=== PATIENT | male | born 1955 | race Caucasian/White ===

== ENCOUNTER 2019-01-29 15:05 | Inpatient (IN) ==
[2019-01-29] MEDS ORDERED: NS 1,000 ML, NS 1,000 ML IV ONE ×2 (15:41)
--- NOTE | 2019-01-29 16:01 | Diag Imaging Result Doc PS360 ---
EXAM: CHEST-PORTABLE 01/29/2019 HISTORY: RUQ pain, SOB TECHNIQUE: AP portable upright at 1552 COMMENT: There is dense alveolar opacification in the right lower lobe. There are no previous studies. The heart size and primary vascularity are within normal limits. IMPRESSION: Right lower lobe pneumonia. Electronically signed by Perry Richey 01/29/2019 3:59 PM
[2019-01-29] MEDS ORDERED: ZITHROMAX PO ONE (16:11)
[2019-01-29] MEDS ORDERED: ROCEPHIN 1 GM in NS 50 ML IV ONE (16:11)
[2019-01-29] MEDS ORDERED: DUONEB (A & A) INH ONE (16:11)
--- NOTE | 2019-01-29 16:31 | EKG Report ---
Test Performed on : 01/29/2019 3:43:23 PM Test Reason : CP Blood Pressure : / mmHG Vent. Rate : 130 BPM Atrial Rate : 130 BPM P-R Int : 118 ms QRS Dur : 072 ms QT Int : 280 ms P-R-T Axes : 000 173 158 degrees QTc Int : 412 ms Suspect arm lead reversal, interpretation assumes no reversal Sinus tachycardia. Septal infarct , age undetermined Lateral infarct , age undetermined Inferior infarct , age undetermined Abnormal ECG No previous ECGs available Unconfirmed Result
[2019-01-29 16:47] LABS: BASO# 0.02 X1000 (0.0-0.2); BASO% 0.2 % (0.0-0.8); EOS# 0.03 X1000 (0.0-0.7); EOS% 0.4 % (0.0-10.0); HEMATOCRIT 43.3 % (42.0-52.0); HEMOGLOBIN 14.5 g/dL (14.0-18.0); IMM GRAN# 0.05 X1000 (0.0-0.04); IMM GRAN% 0.6 % (0.0-0.5); LYMPH# 0.77 X1000 (1.2-3.4); LYMPH% 9.4 % (20.5-51.1); MCH 30.8 PG (27-31); MCHC 33.5 g/dL (33-37); MCV 91.9 FL (81-99); MONO# 0.93 X1000 (0.11-0.59); MONO% 11.4 % (1.7-9.3); MPV 11.9 FL (7.4-10.4); NEUT# 6.38 X1000 (1.4-6.5); PLT 177 X1000 (130-400); RBC 4.71 XMIL (4.7-6.1); RDW 13.9 % (11.5-14.5); WBC 8.18 X1000 (4.8-10.8)
[2019-01-29 16:54] LABS: INR 1.23; PROTIME 15.7 Seconds (11.0-16.0)
[2019-01-29] MEDS ORDERED: VANCOMYCIN 1 GM/NS 1 GM/250 ML IVPB IV ONE (17:02)
[2019-01-29] MEDS ORDERED: MAXIPIME 2 GM in NS 100 ML IV ONE (17:02)
[2019-01-29 17:15] LABS: AGAP 19; CHLORIDE 96 mmol/L (98-107); SODIUM 134 mmol/L (136-145); TCO2 19 mmol/L (25-35)
[2019-01-29 17:16] LABS: ALB/GLOB RATIO 1.2; ALBUMIN 3.8 g/dL (3.5-5.0); ALKALINE PHOSPHATASE 50 U/L (32-122); AMYLASE 57 U/L (20-200); BUN 18 mg/dL (8-22); CALCIUM 8.2 mg/dL (8.8-10.2); COSMO 270; CREATININE 1.2 mg/dL (0.7-1.2); ESTIMATED GFR > 60; GLUCOSE 96 mg/dL (70-104); GOT 64 U/L (10-34); GPT 72 U/L (10-44); LIPASE 15 U/L (13-60); TOTAL BILIRUBIN 1.93 mg/dL (0.20-1.00); TOTAL PROTEIN 6.9 g/dL (6.3-8.3)
[2019-01-29 17:34] LABS: ALLEN TEST YES; BE -5.5 mmoll (-3.0-3.0); BLOOD TYPE ARTERIAL; HCO3-(ACT) 20.4 mmoll (20.0-26.0); METHB 2.5 % (0.0-1.5); O2(CT) 17.1 mL/dL (15.0-23.0); PCO2(98.6) 28 mmHg (35-45); PO2(98.6) 59 mmHg (60-100); SAMPLE BLOOD; SAO2 93.1 % (95.0-100.0); THB 13.7 g/dL (11.5-17.4); pH(98.6) 7.41 (7.35-7.45)
[2019-01-29 17:37] LABS: MODALITY CANNULA; O2HB 88.6 % (95.0-99.0)
--- NOTE | 2019-01-29 18:06 | PROVIDER DOCUMENTATION ---
This chart was entered by Saira Lerner Scribe, acting as scribe for Tanner Crews MD. 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 pt sts last night had diarrhea fever (subjective) and RUQ pain that has carried over to today. pt is in mild distress on exam and is a/o x3 and able to answer all questions when asked. pt is nontoxic in appearance Quality of Pain: reports: none Severity in ED: reports: moderate Onset/Duration: reports: this morning (0430am) Timing: reports: still present, getting worse Exposure: reports: unknown cause Cough Quality/Degree: reports: moderate Episode Frequency: chronic episodes (hx of copd) Current Respiratory Medication Therapy: Initiated see nurses note Modifying Factors: improves with: albuterol inhaler, oxygen Associated Symptoms: reports: cough, fever/chills (subjective), heart racing (132), shortness of breath, other (diarrhea ad abd pain). denies: chest pain /soreness, dizziness, headache, wheezing Similar Symptoms Previously?: Yes (hx of copd) Recently seen or treated by another doctor?: No Review of Systems - Adult - REVIEW OF SYSTEMS - ADULT Constitutional: reports: see HPI, fever (subjective). denies: chills Eyes: reports: no symptoms reported Ears, Nose, Mouth & Throat: reports: no symptoms reported Cardiovascular: denies: chest pain, palpitations Respiratory: reports: see HPI, cough, dyspnea on exertion, shortness of breath. denies: wheezing Gastrointestinal: reports: see HPI, abdominal pain (RUQ), diarrhea, poor appetite. denies: nausea, vomiting Genitourinary: reports: no symptoms reported Musculoskeletal: denies: back pain, neck pain Integumentary: reports: no symptoms reported Neurological: denies: dizziness/vertigo, headache/migraines Psychiatric: reports: no symptoms reported Endocrine: reports: no symptoms reported Hematologic/Lymphatic: reports: no symptoms reported Allergic/Immunologic: reports: no symptoms reported All Other Systems: Reviewed and Negative Past History - Adult - PAST MEDICAL HISTORY-ADULT Review of Records: reports: Old Records Reviewed, Nursing Assessment Review, Medications Reviewed, Social history reviewed & non-contributory. Major Childhood Illnesses: reports: denies history Cardiovascular: reports: denies history Respiratory: reports: COPD Gastrointestinal: reports: denies history Genitourinary: reports: denies history Musculoskeletal: reports: denies history Neurological: reports: denies history Psychiatric: reports: denies history Endocrine/Immune: reports: denies history Other Conditions: reports: denies history - PRIOR SURGERIES/PROCEDURES Surgical/Procedure History: reports: reviewed, not pertinent - IMMUNIZATION STATUS Childhood Immunizations: See Nurse Assessment Flu Vaccine: See Nurse Assessment - FAMILY HISTORY Family History: reviewed, not pertinent - SOCIAL HISTORY Smoking: cigarettes, less than 1 pack/day Provider spent 3-5 mins advising pt. on dangers of tobacco.: Discussed manners to quit use, and f/u contacts for add'l counseling. Substance Use: denies Living Situation: other (intermediate) Physical Exam-General - PHYSICAL EXAM-ADULT Initial Vital Signs Reviewed: Yes (BP 83/56 O2 91% ) - CONSTITUTIONAL General Appearance: appears well, alert, mild distress, thin, other (pt has tattoos on BUE BLE abdomen face neck) - EYES Eyes: PERRL/EOMI, pink conjunctivae - HEAD, EARS, NOSE, MOUTH & THROAT HENMT: moist mucous membranes, normal ENT inspection - NECK Neck: non-tender, full range of motion, supple, normal inspection - RESPIRATORY Respiratory: respiratory distress (mild), decreased breath sounds (mild RLL), increased rate (22) - CARDIOVASCULAR Cardiovascular: normal peripheral pulses, tachycardia (132) - GASTROINTESTINAL (ABDOMEN) Abdominal Exam: normal bowel sounds, soft, guarding, tenderness (RUQ). negat samuel: distended - GENITOURINARY Male Genitalia: deferred Rectal Exam: deferred Hemoccult Exam: deferred - MUSCULOSKELETAL Back Exam: no CVA tenderness, no vertebral tenderness Extremity: normal capillary refill, pelvis stable - SKIN Integumentary: normal color, normal turgor, warm/dry, other (multiple tattoos over body) - NEUROLOGIC Neurologic: grossly normal - PSYCHIATRIC Psych/Mental Status: normal mood/affect, normal thought content, normal thought process, oriented x 3 Progress - PLAN OF CARE/RESULTS Progress/Plan/Lab Results: Vital Signs - 8 hr 01/29/19 15:23 01/29/19 15:25 01/29/19 15:30 Temperature 98.9 F Pulse Rate 132 H 130 H 132 H Respiratory Rate 20 28 H 31 H Blood Pressure 83/56 83/56 O2 Sat by Pulse Oximetry 91 L 90 L 92 L 01/29/19 15:45 01/29/19 16:00 01/29/19 16:15 Temperature Pulse Rate 132 H 131 H 136 H Respiratory Rate 29 H 30 H 28 H Blood Pressure O2 Sat by Pulse Oximetry 91 L 91 L 91 L 01/29/19 16:30 01/29/19 16:33 01/29/19 16:45 Temperature Pulse Rate 126 H 123 H 130 H Respiratory Rate 27 H 22 27 H Blood Pressure O2 Sat by Pulse Oximetry 91 L 92 L 92 L 01/29/19 17:00 01/29/19 17:15 01/29/19 17:30 Temperature Pulse Rate 135 H 129 H 135 H Respiratory Rate 32 H 23 24 Blood Pressure O2 Sat by Pulse Oximetry 91 L 92 L 92 L 01/29/19 17:31 01/29/19 17:33 Temperature Pulse Rate 126 H 127 H Respiratory Rate 31 H 30 H Blood Pressure 86/64 97/68 O2 Sat by Pulse Oximetry 91 L 91 L Laboratory Results - last 24 hr 01/29/19 01/29/19 01/29/19 16:32 16:32 16:32 WBC 8.18 RBC 4.71 Hgb 14.5 Hct 43.3 MCV 91.9 MCH 30.8 MCHC 33.5 RDW Std Deviation 13.9 Plt Count 177 MPV 11.9 H Immature Gran % (Auto) 0.6 H Neut % (Auto) 78.0 H Lymph % (Auto) 9.4 L Wilson % (Auto) 11.4 H Eos % (Auto) 0.4 Baso % (Auto) 0.2 Immature Gran # (Auto) 0.05 H Neut # (Auto) 6.38 Lymph # (Auto) 0.77 L Wilson # (Auto) 0.93 H Eos # (Auto) 0.03 Baso # (Auto) 0.02 PT INR PTT (Actin FS) Specimen Type Sample Site pH pCO2 pO2 HCO3 Base Excess Oxyhemoglobin ABG O2 Sat (Calculated) ABG O2 Saturation ABG Carboxyhemoglobin ABG Methemoglobin Tyler Test A-a O2 Difference Total Hemoglobin Lactate Liter Flow Blood Gas Modality FiO2 % Sodium 134 L Potassium 4.0 Chloride 96 L Carbon Dioxide 19 L Anion Gap 19 BUN 18 Creatinine 1.2 Estimated GFR/1.73 m2 > 60 BUN/Creatinine Ratio 15 Glucose 96 Calculated Osmolality 270 Calcium 8.2 L Total Bilirubin 1.93 H AST 64 H ALT 72 H Alkaline Phosphatase 50 Total Protein 6.9 Albumin 3.8 Globulin 3.1 Albumin/Globulin Ratio 1.2 Amylase 57 Lipase 15 Plasma Lactate 4.9 H* 01/29/19 01/29/19 16:32 17:25 WBC RBC Hgb Hct MCV MCH MCHC RDW Std Deviation Plt Count MPV Immature Gran % (Auto) Neut % (Auto) Lymph % (Auto) Wilson % (Auto) Eos % (Auto) Baso % (Auto) Immature Gran # (Auto) Neut # (Auto) Lymph # (Auto) Wilson # (Auto) Eos # (Auto) Baso # (Auto) PT 15.7 INR 1.23 PTT (Actin FS) 31.0 Specimen Type ARTERIAL Sample Site R RADIAL pH 7.41 pCO2 28 L pO2 59 L HCO3 20.4 Base Excess -5.5 L Oxyhemoglobin 88.6 L* ABG O2 Sat (Calculated) 17.1 ABG O2 Saturation 93.1 L ABG Carboxyhemoglobin 2.30 ABG Methemoglobin 2.5 H Tyler Test YES A-a O2 Difference 134.0 Total Hemoglobin 13.7 Lactate 3.00 H Liter Flow 3.0 Blood Gas Modality CANNULA FiO2 % 32.0 Sodium Potassium Chloride Carbon Dioxide Anion Gap BUN Creatinine Estimated GFR/1.73 m2 BUN/Creatinine Ratio Glucose Calculated Osmolality Calcium Total Bilirubin AST ALT Alkaline Phosphatase Total Protein Albumin Globulin Albumin/Globulin Ratio Amylase Lipase Plasma Lactate Orders Category Date Time Status Cardiac Monitoring DIRECTED Care 01/29/19 16:59 Active Intake and Output-Strict ORDERED Care 01/29/19 17:03 Active Repeat Vital Signs .Blood Pressure Care 01/29/19 17:03 Active Repeat Vital Signs .Heart Rate Care 01/29/19 17:03 Active Repeat Vital Signs .Oxygen Saturation Care 01/29/19 17:03 Active Repeat Vital Signs .Respiratory Rate Care 01/29/19 17:03 Active Repeat Vital Signs .Temp Care 01/29/19 17:03 Active CHEST-PORTABLE [RAD] Stat Exams 01/29/19 15:39 Completed ABG [RESP] Routine Lab 01/29/19 17:25 Completed AMYLASE [CHEM] Stat Lab 01/29/19 16:32 Completed BLOOD CULTURE [BLDCUL] Stat Lab 01/29/19 16:36 Received CBC WITH DIFF [HEME] Stat Lab 01/29/19 16:32 Completed CK PROFILE [SP CHEM] Stat Lab 01/29/19 17:56 Ordered COMPREHENSIVE METABOLIC PANEL [CHEM] Stat Lab 01/29/19 16:32 Completed LACTATE, PLASMA [CHEM] Lab 01/29/19 17:00 Uncollected LACTATE, PLASMA [CHEM] Lab 01/29/19 20:00 Uncollected LACTATE, PLASMA [CHEM] Lab 01/29/19 23:00 Uncollected LACTATE, PLASMA [CHEM] Stat Lab 01/29/19 16:32 Completed LIPASE [CHEM] Stat Lab 01/29/19 16:32 Completed MAGNESIUM [CHEM] Stat Lab 01/29/19 17:56 Ordered PROTIME WITH INR [COAG] Stat Lab 01/29/19 16:32 Completed PROTIME WITH INR [COAG] Stat Lab 01/29/19 17:56 Ordered PTT [COAG] Stat Lab 01/29/19 16:32 Completed PTT [COAG] Stat Lab 01/29/19 17:56 Ordered TROPONIN T Stat Lab 01/29/19 17:56 Ordered TYPE & SCREEN [BBK] Stat Lab 01/29/19 17:56 Ordered URINALYSIS W/POSS RFLX CULT [URINALYSIS] Stat Lab 01/29/19 16:59 Uncollected 0.9% Sodium Chloride Inj [Ns] 1,000 ml Med 01/29/19 15:41 Discontinued 0.9% Sodium Chloride Inj [Ns] 1,000 ml IV 999 mls/hr Albuterol 2.5MG/Ipratrop 0.5MG [Duoneb (A & A)] Med 01/29/19 16:11 Discontinued 3 ml INH NOW ONE Azithromycin [Zithromax] Med 01/29/19 16:11 Discontinued 500 mg PO NOW ONE CefEPIME [Maxipime] 2 gm Med 01/29/19 17:02 Ordered 0.9% Sodium Chloride Inj [Ns] 100 ml IV NOW CefTRIAXONE [Rocephin] 1 gm Med 01/29/19 16:11 Discontinued 0.9% Sodium Chloride Inj [Ns] 50 ml IV NOW Vancomycin 1 gm/Ns Med 01/29/19 17:02 Active 1 gm in 250 ml IV NOW Aerosol Treatments Routine Oth 01/29/19 16:11 Completed Aerosol Treatments Stat Oth 01/29/19 16:11 Completed Oxygen Device Stat Oth 01/29/19 16:59 Active Oxygen Device Stat Oth 01/29/19 17:35 Active EKG [EKG] Stat Ther 01/29/19 15:38 Draft Transfer/Admit Order [TRANSFER] Routine Transfer 01/29/19 17:50 Ordered Result Diagrams: 01/29/19 16:32 01/29/19 16:32 - REASSESSMENT Reassessment #1 Time Reassessed: 17:51 Status: unchanged - EKG 1 Time of EKG reading by physician:: 15:43 EKG Read and Signed by:: Tanner Crews (T wave inversion) EKG Interpretation (*Must complete 3 of following elements*): Abnormal Rate: 130 Rhythm: sinus tachycardia [place]: normal QRS: normal PA Interval: normal ST Wave: normal Comments: septal/lateral/inferior, age undetermined - XRAY 1 XRAY: Bilateral XRAY Study: Chest Impression: See EMR Report (EXAM: CHEST-PORTABLE 01/29/2019 HISTORY: RUQ pain, SOB TECHNIQUE: AP portable upright at 1552 COMMENT: There is dense alveolar opacification in the right lower lobe. There are no previous studies. The heart size and primary vascularity are within normal limits. IMPRESSION: Right lower lobe pneumonia. Electronically signed by Perry Richey 01/29/2019 3:59 PM 01/29/19 1559 Interpreting Physician: Perry Richey MD Dictated Date/Time: 01/29/19 1558 cc: Tanner Crews MD; None,PCP) - CONSULTS/PCP/HOSPITALIST Notification #1 *Consult/PCP/Hospitalist*: hospitalist Time Discussed: 17:51 Reason/Comments: dr guajardo will admit and will see in the ed Consult Disposition: Admit Departure - Departure Date of Disposition Decision: 01/29/19 Time of Disposition Decision: 16:12 DIAGNOSIS: Hypoxia, Tobacco use disorder Pneumonia Qualifiers: Pneumonia type: due to unspecified organism Laterality: right Lung location: lower lobe of lung Qualified Code(s): J18.1 - Lobar pneumonia, unspecified organism Sepsis Qualifiers: Sepsis type: sepsis due to unspecified organism Sepsis acute organ dysfunction status: without acute organ dysfunction Qualified Code(s): A41.9 - Sepsis, unspecified organism Disposition: ADMITTED INPATIENT 09 Certified Medical Emergency: Emergent Condition: Fair Referrals and Follow-Ups: None,PCP [Primary Care Provider] - - Critical Care Note This patient required my direct & personal management of CC.: Yes Total Time (mins): 36 Critical Care Statement: This patient required my direct personal management to treat or rule out processes, the absence of which, could potentiallly result in sudden, clinically significant life or limb threatening deterioration. Attestation - Physician/ VJ Attestation Patient care was provided by Advanced Practice Provider:: No The physician spent face to face time with patient:: Yes Advanced Practice Provider documentation review:: Supervising physician onsite and consulted in the evaluation and care of this patient. The physician did have a face to face encounter with the patient. Sepsis: Tissue Perfusion Assmt - Physical Exam Assessment Date: 01/29/19 Time Assessment Initialized: 18:00 Vital Signs: Last Vital Signs Temp 98.9 F 01/29/19 15:23 Pulse 127 H 01/29/19 17:33 Resp 30 H 01/29/19 17:33 BP 97/68 01/29/19 17:33 Pulse Ox 91 L 01/29/19 17:33 Height 5 ft 8 in Weight 57.153 kg Lung Sounds:: lungs clear Heart Sounds:: Regular (tachycardia) Peripheral Pulse Evaluation:: radial (R): 1+, radial (L): 1+ Skin Exam:: pink - Impression Impression:: Tissue Perfusion Inadequate - Plan Plan:: No Change (still getting fluid bolus) This chart was documented by the indicated scribe, (Saira Lerner Scribe) and accurately reflects the services I performed and decisions made by me, Tanner Crews MD, as attested by the provider's signature.
[2019-01-29] MEDS ORDERED: NS 1,000 ML IV ONE ×2 (18:12→21:32)
[2019-01-29 18:53] LABS: MAGNESIUM 1.2 mg/dL (1.5-2.7)
[2019-01-29] MEDS ORDERED: LEVOPHED 8 MG in D5 1/2 NS 250 ML IV SCH (19:00)
[2019-01-29 19:13] LABS: CK INDEX 1.1 (0.0-2.5); CK-MB 2.39 ng/mL (0.0-5.0)
[2019-01-29 20:38] LABS: URINE SOURCE CATH
[2019-01-29 20:47] LABS: BILIRUBIN URINE NEGATIVE (NEGATIVE); BLOOD URINE SMALL (NEGATIVE); COLOR ORANGE; GLUCOSE URINE NEGATIVE (NEGATIVE); KETONE URINE NEGATIVE (NEGATIVE); LEUKOCYTES URINE NEGATIVE (NEGATIVE); NITRITE URINE NEGATIVE (NEGATIVE); PROTEIN URINE 300 mg/dL (NEGATIVE); SP GRAVITY URINE 1.018; TURBIDITY URINE HAZY (CLEAR); UROBILINOGEN URINE NORMAL (NORMAL)
[2019-01-29] MEDS ORDERED: ATIVAN IV ONE (20:54)
[2019-01-29 21:04] LABS: UR EPITHELIAL CELLS >10 /HPF (<10); URINE BACTERIA NEGATIVE /HPF; URINE RBC <10 /HPF (<10)
--- NOTE | 2019-01-29 21:12 | HISTORY AND PHYSICAL ---
CHIEF COMPLAINT: Cough and shortness of breath, fever, chills. HISTORY OF PRESENT ILLNESS: A 63-year-old male with a past medical history of tobacco use, presented to the emergency department with a chief complaint of cough and shortness of breath, associated with chills and fever. As per the patient, he has been in group home for 47 years. He stated that he started having some shortness of breath and coughing a couple days ago that have been getting worse, associated with fever and chills and some dizziness. He has been told before also that he has some kind of liver problem, but he does not know exactly what kind. In the emergency department, he was found to have a normal white blood cell count, but he was hypoxemic. His pCO2 was low as well. Creatinine was 1.2. Elevated LFTs and elevated plasma lactate. X-ray showed a dense alveolar opacification in the right lower lobe. We do not have any previous studies, and this is associated with right lower lobe pneumonia. As per the patient, he has been coughing up some phlegm which is yellowish. He started today having diarrhea. He does not know exactly how many bowel movements he has had. He denies headache, abdominal pain, extremity weakness or focal weakness, nausea, vomiting, constipation. He will be admitted to the ICU because his blood pressure has been low in the 80s mostly, even though he has been getting fluids. We will put him on vasopressors if the blood pressure is still low. We will continue with IV fluids. We will start this patient on broad-spectrum antibiotics, Zosyn and Zyvox. As per the patient, he has an allergy to penicillins, but he is not sure about it. We will go with breathing treatment and oxygen supplementation as well, and depending on his evolution, probably I will get Pulmonary Department to see him. REVIEW OF SYSTEMS: All the 14 points of review of systems were reviewed, all of them negative except as per HPI. Also, as per the patient, he has been losing weight about 5- 6 pounds in the past month. PAST MEDICAL HISTORY: Tobacco abuse and apparently he has some kind of liver problems, but he does not know exactly what kind of problem it is. PAST SURGICAL HISTORY: Apparently he had a cardiac catheterization with stents before, around 9 years ago, also left inguinal hernia repair a long time ago. FAMILY HISTORY: Noncontributory. SOCIAL HISTORY: Apparently he smokes cigarettes, around 8 around day. ALLERGIES: Apparently he is allergic to penicillins, but he does not remember what happened when he uses penicillin. PHYSICAL EXAMINATION: VITAL SIGNS: Temperature 98.9 degrees, pulse 123, respiratory rate 22, blood pressure 83/56 oxygen saturation 92 on 3 L of nasal cannula. HEENT: Head normocephalic, no trauma. PERRLA. NECK: Supple. No JVD. Central trachea. CHEST: Decreased breath sounds bilaterally, mostly on the right side with generalized rhonchi and crepitus, painful to palpation at the level of the left lower ribcage. ABDOMEN: Soft. Some tenderness to palpation at the level of the right upper quadrant. Positive bowel sounds. EXTREMITIES: No edema, no clubbing, no cyanosis. SKIN: Multiple tattoos. I do not see any signs of infection at this moment. NEUROLOGICAL: The patient is alert. He is oriented x3. I do not see any focal neurological deficits. LABORATORY: WBC 8.1, hemoglobin 14.5, hematocrit 43.3, platelets 177,000. Sodium 134, potassium 4, chloride 96, bicarbonate 19, BUN 18, creatinine 1.2, glucose 96, calcium 8.2, total bilirubin 1.9, AST 64, ALT 72, alkaline phosphatase 50. Plasma lactate 4.9. ASSESSMENT AND PLAN: 1. Sepsis with possible septic shock. So far, he receive only 1 L of fluid, but we are planning to give him more than that. We will check his lactate level as well. We have started this patient on broad-spectrum antibiotics. He does have right lower lobe pneumonia which is extensive. He will be transferred to the ICU. He has been placed on a Ventimask to keep the oxygen saturation above 90. Probably I will get Pulmonary Department in the morning, depending on his progression. The patient has decided to be full code as well. 2. Extensive right lower lobe pneumonia. This is the cause of the sepsis/possible shock. We will start this patient on broad-spectrum antibiotics. This patient is coming from group home. Apparently, he is a smoker, but they are not allowed to buy regular cigarettes, so they prepare their own in group home, apparently. 3. Acute hypoxemic respiratory failure. His oxygen saturation is low even with the ventimask. We will continue with oxygen supplementation and breathing treatment, pulmonary toilet. 4. Elevated liver function tests, probably secondary to dehydration, but also this patient apparently has a history of liver problems which we do not know exactly which one it is. We will probably get an ultrasound and also hepatitis panel to start with. We will monitor. 5. Tobacco abuse. This patient has been highly advised against tobacco use. I will continue with daily cessation education. 6. Hyponatremia. Continue with normal saline. 7. Mild elevation of the creatinine, possible acute kidney injury, probably due to dehydration. Continue with IV fluids. I do not have any previous records. 8. Dehydration. His oral mucosa is a bit dry, but he already received some fluids. I will continue with IV fluids due to his sepsis. He will be transferred to the ICU. Patient is remarkably sick, I will monitor this patient in the ICU, if He does not improve likely will need to be on mechanical intubation and ventilatory support, I will add pressors, O2, broad spectrum antibiotics. Further recommendations pending hospital course. cc: Agapito Hunter MD MTDD
[2019-01-29 21:17] LABS: URINE YEAST NONE SEEN
[2019-01-29 21:19] LABS: URINE CASTS GRANULAR PRESENT; URINE CRYSTALS NONE SEEN; URINE SMALL ROUND CELLS TRANS PRESENT
[2019-01-29] MEDS ORDERED: ZOSYN 3.375 GM in NS 50 ML IV SCH (21:32)
[2019-01-29] MEDS ORDERED: DUONEB (A & A) INH PRN (21:32)
[2019-01-29] MEDS: ZYVOX 600 MG/D5W 600 MG/300 ML IVPB IV SCH (21:47)
[2019-01-29] MEDS ORDERED: TORADOL IV ONE (21:54)
[2019-01-29] MEDS: TYLENOL PR PRN (22:15)
[2019-01-29] MEDS: DUONEB (A & A) INH SCH ×3 (23:10→23:12)
[2019-01-29] MEDS: LEVOPHED 8 MG in D5 1/2 NS 250 ML IV SCH (23:31)
[2019-01-30] MEDS: DUONEB (A & A) INH SCH ×6 (03:50→23:34)
[2019-01-30 04:44] LABS: ALLEN TEST YES; BE -10.6 mmoll (-3.0-3.0); BLOOD TYPE ARTERIAL; HCO3-(ACT) 16.6 mmoll (20.0-26.0); METHB 2.3 % (0.0-1.5); O2(CT) 18.4 mL/dL (15.0-23.0); O2HB 94.5 % (95.0-99.0); PCO2(98.6) 27 mmHg (35-45); PO2(98.6) 98 mmHg (60-100); SAMPLE BLOOD; SAO2 98.2 % (95.0-100.0); SRATE 14 BPM; THB 13.8 g/dL (11.5-17.4); pH(98.6) 7.32 (7.35-7.45)
[2019-01-30 04:46] LABS: MODALITY BI PAP
--- NOTE | 2019-01-30 05:11 | Diag Imaging Result Doc PS360 ---
EXAM: US GB < RUQ (LIMITED) HISTORY: elevated lfts TECHNIQUE: Emergency Right upper quadrant ultrasound COMPARISON: None. FINDINGS: Normal pancreas. No abdominal aortic aneurysm. Normal inferior vena cava. No focal hepatic abnormality although there is likely at least mild fatty infiltration. There is a right-sided pleural effusion. Normal gallbladder. No stones. Borderline mild increased renal echotexture. No hydronephrosis. IMPRESSION: 1.Mild fatty infiltration of the liver 2.Right pleural effusion 3.A preliminary report was given at 11:31 PM on 01/29/2019 Electronically signed by Ken Zaragoza 01/30/2019 5:09 AM
[2019-01-30] MEDS ORDERED: CLINIMIX E 4.25%-5% SOLUTION 1,000 ML IV SCH (06:45)
[2019-01-30 07:00] LABS: ALB/GLOB RATIO 1.2; ALBUMIN 3.1 g/dL (3.5-5.0); CREATININE 1.3 mg/dL (0.7-1.2); POTASSIUM 3.8 mmol/L (3.5-5.1); TOTAL BILIRUBIN 1.03 mg/dL (0.20-1.00); TOTAL PROTEIN 5.7 g/dL (6.3-8.3)
[2019-01-30 07:07] LABS: BASO# 0.02 X1000 (0.0-0.2); BASO% 1.2 % (0.0-0.8); EOS# 0.07 X1000 (0.0-0.7); EOS% 4.1 % (0.0-10.0); HEMATOCRIT 38.3 % (42.0-52.0); HEMOGLOBIN 12.8 g/dL (14.0-18.0); LYMPH# 0.42 X1000 (1.2-3.4); LYMPH% 24.9 % (20.5-51.1); MCH 30.8 PG (27-31); MCHC 33.4 g/dL (33-37); MCV 92.1 FL (81-99); MONO# 0.14 X1000 (0.11-0.59); MONO% 8.3 % (1.7-9.3); MPV 12.8 FL (7.4-10.4); NEUT# 1.04 X1000 (1.4-6.5); NEUT% 61.5 % (42.2-75.2); PLT 136 X1000 (130-400); RBC 4.16 XMIL (4.7-6.1); RDW 13.7 % (11.5-14.5); WBC 1.69 X1000 (4.8-10.8)
[2019-01-30] MEDS ORDERED: ATIVAN IV ONE ×2 (07:22→07:53)
--- NOTE | 2019-01-30 07:23 | Diag Imaging Result Doc PS360 ---
EXAM: CHEST-PORTABLE HISTORY: Pneumonia TECHNIQUE: Portable chest single view COMPARISON: 01/29/2019 FINDINGS: There are dense infiltrates in the mid and lower right lung and there is also small right pleural effusion. The left lung remains well expanded and clear. No cardiomegaly. The pulmonary vessels are small. IMPRESSION: Worsening right-sided pneumonia. Electronically signed by Ken Zaragoza 01/30/2019 7:21 AM
[2019-01-30 07:26] LABS: CALCIUM 7.1 mg/dL (8.8-10.2)
[2019-01-30] MEDS: NS 1,000 ML IV SCH ×2 (07:36→14:06)
[2019-01-30] MEDS: MAXIPIME 1 GM in NS 50 ML IV SCH ×2 (07:36→19:51)
[2019-01-30] MEDS: CLINIMIX E 4.25%-5% SOLUTION 1,000 ML IV SCH (07:36)
[2019-01-30] MEDS: TYLENOL PR PRN ×2 (07:59→16:41)
[2019-01-30] MEDS ORDERED: LOPRESSOR IV ONE (08:07)
--- NOTE | 2019-01-30 08:20 | PROGRESS NOTE ---
DATE: 01/30/2019 SUBJECTIVE: This patient is using at this moment the BiPAP machine. He is completely alert. He is oriented. He is following commands. He is still in respiratory distress, he seems to be remarkably sick. Pending lab work this morning, x-ray looks a bit worse today compared with yesterday, probably some pulmonary edema. He received already 3 L of fluid, and I will continue with a low rate given his borderline low urine output. I have requested an evaluation by the Pulmonary Department, and Infectious Disease Department. Also, this patient has been having liquid bowel movement apparently since yesterday. I have requested Clostridium difficile toxin and antigen for this. Continue with antibiotics. I have requested HIV and immunoglobulins as well. OBJECTIVE: Vital Signs: Temperature 98.8 degrees, pulse 136, respiratory rate 26, blood pressure 70/61, and oxygen saturation 91% on the BiPAP machine. HEENT: Head normocephalic. No trauma. PERRLA. Neck: Supple. No JVD. No masses. Central trachea. Chest: Decreased breath sounds globally with generalized rhonchi and crepitus mostly on the right side, pain to palpation at the level of the left lower rib cage. Abdomen: Soft. There is some tenderness to palpation at the level of the right upper quadrant. Positive bowel sounds. Extremities: No edema. No clubbing. No cyanosis. Skin: Multiple tattoos. I do not see any signs of infection at this moment. Neurological: The patient is alert. He is oriented x3. No focal deficits. LABORATORY: Pending. CBC: Sodium 140, potassium 3.8, chloride 109, bicarbonate 14, BUN 30, creatinine 1.3, and glucose 100. ASSESSMENT AND PLAN: 1. Septic shock. So far, he received 3 L of fluids. He has been getting antibiotics, and he has been on vasopressors. I have requested an evaluation by Pulmonary Department and Infectious Disease Department. He does have right lung pneumonia, which is extensive. I will continue treating this patient in the ICU. I will continue with the BiPAP machine, oxygen supplementation, and pulmonary toilet. 2. Extensive right lower lobe pneumonia. This is likely the cause of the septic shock. Continue broad-spectrum antibiotics, breathing treatment, and BiPAP machine. Pulmonary will be on board. I have requested an evaluation also by Infectious Disease Department. I have requested immunoglobulin level and HIV as well. 3. Acute hypoxemic respiratory failure. Continue with the BiPAP machine for now, continue with oxygen supplementation, breathing treatment, and pulmonary toilet. 4. Acute kidney injury, with borderline low urine output. As per the nurse, it has been around 25 mL/h. I will continue with IV fluids. I will continue with vasopressors. 5. Elevated liver function tests, probably due to dehydration. We requested an abdominal ultrasound that showed a fatty infiltration of the liver. Also, I have requested a hepatitis profile. We will wait for results. This could be also related to dehydration and shock liver. 6. Tobacco abuse. This patient has been highly advised against tobacco use. I will continue with daily cessation education. 7. Hyponatremia resolved. 8. Metabolic acidosis, likely due to septic shock, acute kidney injury. We will monitor. 9. Dehydration. He seems to be more hydrated today. Continue with IV fluids. I will have placed this patient on a diet as well. 10. Diarrhea. Apparently, he had a couple episodes of liquid bowel movements during the night. A sample has been sent to the laboratory to rule out colitis. I will request WBC in the stool and culture. CRITICAL CARE TIME: 35 minutes. cc: Agapito Hunter MD
[2019-01-30 09:16] LABS: BANDS 4 % (0-1); LYMPHS 32 % (21-51); MONO 8 % (1-9); POIKILOCYTOSIS 1+; SEGS 8 % (42-75)
[2019-01-30] MEDS ORDERED: QUELICIN IV ONE (09:55)
[2019-01-30] MEDS ORDERED: AMIDATE IV ONE (09:55)
[2019-01-30] MEDS ORDERED: AMIDATE ONE (10:00)
[2019-01-30] MEDS ORDERED: QUELICIN ONE (10:00)
[2019-01-30] MEDS ORDERED: NS 250 ML ONE (10:02)
[2019-01-30] MEDS: DIPRIVAN 1% 1,000 MG/100 ML BOTTLE IV SCH ×2 (10:09→19:51)
[2019-01-30] MEDS: LEVOPHED 8 MG in D5 1/2 NS 250 ML IV SCH ×2 (10:32→23:43)
--- NOTE | 2019-01-30 10:40 | Diag Imaging Result Doc PS360 ---
EXAM: CHEST-PORTABLE HISTORY: Intubation TECHNIQUE: Portable chest COMPARISON: 5:34 AM FINDINGS: Interval placement of an endotracheal tube. This is in good position approximately 4 cm above the richadr. No other interval change. Electronically signed by Ken Zaragoza 01/30/2019 10:38 AM
[2019-01-30] MEDS: SODIUM BICARBONATE 8.4% 100 MEQ in D5W 1,000 ML IV SCH ×2 (11:02→12:47)
[2019-01-30] MEDS: ZYVOX 600 MG/D5W 600 MG/300 ML IVPB IV SCH ×2 (11:03→21:25)
[2019-01-30 11:31] LABS: ALLEN TEST YES; BE -11.5 mmoll (-3.0-3.0); BLOOD TYPE ARTERIAL; HCO3-(ACT) 15.8 mmoll (20.0-26.0); METHB 2.5 % (0.0-1.5); O2(CT) 15.1 mL/dL (15.0-23.0); PCO2(98.6) 32 mmHg (35-45); PO2(98.6) 60 mmHg (60-100); SAMPLE BLOOD; SAO2 92.9 % (95.0-100.0); SRATE 20 BPM; TVOL 600 mL; pH(98.6) 7.26 (7.35-7.45)
[2019-01-30 11:37] LABS: MODALITY VENTILATOR; O2HB 89.2 % (95.0-99.0)
[2019-01-30] MEDS ORDERED: EPINEPHRINE 8 MG in D5W 250 ML IV SCH (12:00)
[2019-01-30 12:39] LABS: UR AMPHETAMINES QUAL NONE DETECTED (NONE DETECT); UR BARBITUATES QUAL NONE DETECTED (NONE DETECT); UR BENZODIAZEPIN QUAL NONE DETECTED (NONE DETECT); UR CANNABINOIDS QUAL NONE DETECTED (NONE DETECT); UR COCAINE QUAL NONE DETECTED (NONE DETECT); UR METHADONE QUAL NONE DETECTED (NONE DETECT); UR OPIATES QUAL NONE DETECTED (NONE DETECT); UR OXYCODONE QUAL NONE DETECTED (NONE DETECT); UR PCP QUAL NONE DETECTED (NONE DETECT)
--- NOTE | 2019-01-30 12:50 | INFECTIOUS DISEASE CONSULT REP ---
DATE: 01/30/2019 CONCLUSION: The patient is admitted to the hospital with what appears to be overwhelming community-acquired pneumonia. RECOMMENDATIONS: I agree with the current antibiotics the patient is receiving, namely cefepime and Zyvox. DISCUSSION: The patient has a BiPAP mask on and he has a decreased level of consciousness. According to the data in the computer, the patient was admitted to the hospital with cough and shortness of breath associated with fever and chills. He has been in the intermediate for 47 years. He is unable to provide a history and no family member is present. The patient's studies thus far show a CBC with a white count of 1690 with an absolute neutrophil count of 1040, hemoglobin is 12.8, platelet count is 136,000. Arterial blood gases show a pH of 7.32, a PO2 of 98 and a pCO2 of 72. The creatinine is 1.3, GFR is 56, AST is 89. Urinalysis showed a few white cells but no bacteria. Stool for Clostridium difficile, blood cultures, and urine cultures are all pending. Chest x-ray shows dense infiltrates in the right middle and lower lobes. Abdominal ultrasound showed the presence of a fatty liver. REVIEW OF SYSTEMS: Unable to be obtained, the patient is wearing a BiPAP mask. PAST MEDICAL HISTORY: Positive for cigarette smoking and a liver problem. The nature of the liver problem is not known at this time. Patient also has coronary artery disease and is manifested by the fact that he had stents placed when he had a cardiac catheterization. The patient also has chronic obstructive pulmonary disease as manifested by an increased AP diameter of his chest and also due to the patient's many-year history of cigarette smoking. PAST SURGICAL HISTORY: Positive for having a cardiac catheterization and a left inguinal hernia repair. FAMILY HISTORY: Said to be noncontributory. SOCIAL HISTORY: As mentioned above, the patient has been in intermediate for 47 years. He is allergic to penicillin manifested by swelling but he has received a dose of cefepime this morning and he does not appear to have any problem with it. PHYSICAL EXAMINATION: Vital Signs: Temperature is 99 degrees, pulse 136, respirations 26, blood pressure is 139/92. The patient weighs 109 pounds. General: This is a chronically ill and malnourished-appearing, middle-aged male. He is wearing a BiPAP mask and seems to be having some respiratory distress. Head/eyes/ears/nose/throat: As mentioned above, the patient has a BiPAP mask on. He did not respond to verbal stimuli. I did not get a good look of his oral cavity. Neck: No meningismus. Lungs: Clear to auscultation. Cardiovascular: Heart rate was regular and rapid. Thorax: Patient has an increased AP diameter of the chest. Abdomen: Soft and nontender. Neurologic: The patient was obtunded. He did not respond to verbal stimuli. There was no tremor. Integument: The patient had multiple tattoos. Thank you for the consult. cc: Alcides Mota MD
[2019-01-30] MEDS ORDERED: PITRESSIN 40 UNIT in NS 100 ML IV SCH (13:15)
--- NOTE | 2019-01-30 14:04 | Diag Imaging Result Doc PS360 ---
EXAM: CHEST/ABD TUBE PLACEMENT HISTORY: NGT placement verification TECHNIQUE: Portable chest COMPARISON: 10:29 AM FINDINGS: No nasogastric tube overlying the esophagus and stomach. No change in the right-sided infiltrates or pleural effusion. Electronically signed by Ken Zaragoza 01/30/2019 2:02 PM
--- NOTE | 2019-01-30 14:11 | PROGRESS NOTE ---
DATE: 01/30/2019 SUBJECTIVE: This patient has been intubated. He has started having more respiratory failure and distress during the day. Pulmonary Department evaluated this patient, and now he is on mechanical ventilation. Blood pressure has been dropping. Initially he was just on 1 vasopressor, and now he is on 2 vasopressors. He is still tachycardic and tachypneic, and the oxygen saturation is in the high 80s. We will continue treating this patient aggressively. I discussed his resuscitation status with him yesterday, and he wants to be full code. Infectious Disease department evaluated this patient also, and they continued with the medication that I started on him yesterday. Additionally, he is receiving bicarbonate IV. He is remarkably sick at this point, but like I mentioned before, we will continue with treatment. No family members at the bedside. PHYSICAL EXAMINATION: Temperature 98 degrees, pulse 130, respiratory rate 28, blood pressure 104/76 and that was at 12 p.m., at this moment 125/111 on 2 vasopressors, and oxygen saturation 90 on mechanical ventilation 100% oxygen flow. HEENT: Head normocephalic, no trauma. PERRLA. Multiple tattoos. Chest: Decreased breath sounds globally with generalized rhonchi and crepitus, mostly on the right side. Skin is a little bit cold at this moment, mostly his extremities. The rest of physical exam about the same compared with this morning. Overall, his prognosis seems to be poor, given his current condition, age, smoking history, multiorgan failure with elevated LFTs, acute kidney injury, and low blood pressure. TIME TREATING THIS PATIENT IN THE ICU: At least 1 hour. cc: Agapito Hunter MD
[2019-01-30 18:24] LABS: BASO# 0.01 X1000 (0.0-0.2); BASO% 0.4 % (0.0-0.8); EOS# 0.06 X1000 (0.0-0.7); EOS% 2.1 % (0.0-10.0); HEMATOCRIT 34.7 % (42.0-52.0); HEMOGLOBIN 11.3 g/dL (14.0-18.0); LYMPH# 0.46 X1000 (1.2-3.4); LYMPH% 16.3 % (20.5-51.1); MCH 30.5 PG (27-31); MCHC 32.6 g/dL (33-37); MCV 93.8 FL (81-99); MONO# 0.11 X1000 (0.11-0.59); MONO% 3.9 % (1.7-9.3); MPV 12.9 FL (7.4-10.4); NEUT# 2.18 X1000 (1.4-6.5); NEUT% 77.3 % (42.2-75.2); PLT 94 X1000 (130-400); RDW 13.8 % (11.5-14.5); WBC 2.82 X1000 (4.8-10.8)
[2019-01-30 18:49] LABS: AGAP 15; ALBUMIN 2.5 g/dL (3.5-5.0); ALKALINE PHOSPHATASE 21 U/L (32-122); BUN 28 mg/dL (8-22); CHLORIDE 102 mmol/L (98-107); COSMO 279; ESTIMATED GFR > 60; GLUCOSE 193 mg/dL (70-104); GOT 106 U/L (10-34); GPT 73 U/L (10-44); POTASSIUM 3.7 mmol/L (3.5-5.1); SODIUM 134 mmol/L (136-145); TCO2 17 mmol/L (25-35); TOTAL BILIRUBIN 0.59 mg/dL (0.20-1.00)
[2019-01-30 18:52] LABS: CALCIUM 5.9 mg/dL (8.8-10.2)
[2019-01-30] MEDS ORDERED: CALCIUM GLUCONATE 4.65 MEQ in NS 50 ML IV ONE (18:55)
[2019-01-30 19:45] LABS: BANDS 24 % (0-1); EOS 2 % (1-10); LYMPHS 22 % (21-51); METAMYELOCYTES 35 %; MONO 6 % (1-9)
[2019-01-30 19:46] LABS: SEGS 3 % (42-75)
--- NOTE | 2019-01-30 20:45 | PULMONOLOGY CONSULTATION ---
DATE: 01/30/2019 REQUESTING PHYSICIAN: Dr. Agapito Adhikari REASON FOR CONSULTATION: Respiratory failure. HISTORY OF PRESENT ILLNESS: Mr. Cespedes is a 63-year-old, incarcerated male who was brought from the facility with fevers, chills, with increasing shortness of breath. Initial arterial blood gas last evening revealed pH 7.41, pCO2 of 28, PO2 of 59 with a lactate of 3.0. Initial chest x-ray revealed dense opacification right lower lobe. The patient's oxygen requirements continued to increase through the night. He was initiated on vasopressors this morning. He is on BiPAP and was placed in restraints. He continues to pull his BiPAP off. The patient's labs and clinical history were reviewed by this practitioner earlier this morning, and intubation was requested and performed by Anesthesia. The patient can give no additional history. PAST MEDICAL HISTORY: 1. Ongoing tobacco use. 2. Possible liver dysfunction. 3. History of cardiac catheterization with stent placement. FAMILY HISTORY: Not immediately available for review. SOCIAL HISTORY: The patient is incarcerated as per above. He smokes 8 cigarettes per day. PHYSICAL EXAMINATION: General: Reveals a frail, chronically ill appearing male with a BMI of 16.6 on mechanical ventilation. He is receiving sedation and Levophed for hypotension. Vital Signs: Blood pressure 77/57, heart rate 116, respiratory rate 20, oxygen saturation 92%. HEENT: Pupils are equal and reactive. Oropharynx appears clear. Neck: Supple. Chest: Reveals diminished breath sounds at the right lung base. Scattered rhonchi bilaterally. Cardiac: Increased rate, regular rhythm. Abdomen: Soft. Extremities: Without edema but are cold to the touch. LABORATORY DATA: Arterial blood gas following intubation, pH 7.26, pCO2 of 32, PO2 of 60, with a lactate of 4.5. Sodium 140, potassium 3.8, chloride 109, bicarbonate 14, BUN 30, creatinine 1.3, albumin 3.1. White blood count 1.69, hemoglobin 12.8, platelet count 136,000. IMPRESSION: A 63-year-old with: 1. Acute hypoxemic respiratory failure. 2. Community-acquired pneumonia. 3. Septic shock. 4. Lactic acidosis. RECOMMENDATION: 1. Intubation (completed). 2. Continued volume resuscitation. 3. Agree with broad spectrum antibiotics as outlined by Dr. Alcides Mota. 4. Vasopressors for ongoing shock. 5. Collect sputum for C and S. 6. Routine gastric acid suppression. 7. Routine bronchodilators. 8. Overall prognosis appears poor. cc: Curtis Albrecht MD
[2019-01-30 21:28] LABS: HIV ANTIBODY SCREEN SEE COMMENTS
--- NOTE | 2019-01-30 23:36 | OPERATIVE NOTE ---
PROCEDURE DATE: 01/30/2019 PROCEDURE PERFORMED: Right femoral vein central venous line placement with ultrasound guidance. SURGEON: Armando Jones MD. INDICATIONS: I have been asked to place a central venous line for IV access in this septic patient. PROCEDURE NOTE: The right groin was prepped and draped in a sterile fashion. We imaged the right femoral vein and it was compressible. We anesthetized the skin, made a small stab incision and accessed the right femoral vein. Passed the guidewire. We then passed the triple-lumen catheter to the extent that it would go, which is about 18 cm, and we were able to aspirate blood from each lumen and flushed each lumen with saline. We secured the flange to the skin with the silk contained within the tray. A Biostep patch was placed at the exit site, and a sterile OpSite dressing was applied. He tolerated it well. cc: Armando Jones MD
[2019-01-31] MEDS: NS 1,000 ML IV SCH ×2 (02:44→15:34)
[2019-01-31] MEDS: DUONEB (A & A) INH SCH (03:24)
[2019-01-31 04:45] LABS: ALLEN TEST NO; BE -6.1 mmoll (-3.0-3.0); BLOOD TYPE ARTERIAL; HCO3-(ACT) 20.1 mmoll (20.0-26.0); METHB 2.6 % (0.0-1.5); O2(CT) 16.8 mL/dL (15.0-23.0); O2HB 95.8 % (95.0-99.0); PCO2(98.6) 26 mmHg (35-45); PO2(98.6) 178 mmHg (60-100); SAMPLE BLOOD; SAO2 100.3 % (95.0-100.0); SRATE 24 BPM; THB 12.2 g/dL (11.5-17.4); TVOL 700 mL; pH(98.6) 7.42 (7.35-7.45)
[2019-01-31 04:48] LABS: MODALITY VENTILATOR
[2019-01-31] MEDS: DIPRIVAN 1% 1,000 MG/100 ML BOTTLE IV SCH ×2 (05:29→14:56)
[2019-01-31 05:52] LABS: HEMATOCRIT 35.5 % (42.0-52.0); MCH 30.5 PG (27-31); MCHC 33.8 g/dL (33-37); MCV 90.3 FL (81-99); MPV 13.3 FL (7.4-10.4); RBC 3.93 XMIL (4.7-6.1); RDW 13.6 % (11.5-14.5); WBC 5.54 X1000 (4.8-10.8)
[2019-01-31 06:26] LABS: AGAP 16; ALB/GLOB RATIO 0.7; ALBUMIN 2.1 g/dL (3.5-5.0); ALKALINE PHOSPHATASE 33 U/L (32-122); BUN 27 mg/dL (8-22); CHLORIDE 103 mmol/L (98-107); COSMO 277; ESTIMATED GFR > 60; GLUCOSE 97 mg/dL (70-104); GOT 103 U/L (10-34); GPT 81 U/L (10-44); MAGNESIUM 1.2 mg/dL (1.5-2.7); PHOSPHORUS 1.7 mg/dL (2.7-4.5); POTASSIUM 3.2 mmol/L (3.5-5.1); SODIUM 136 mmol/L (136-145); TCO2 17 mmol/L (25-35); TOTAL BILIRUBIN 0.66 mg/dL (0.20-1.00); TOTAL PROTEIN 5.1 g/dL (6.3-8.3)
[2019-01-31 06:35] LABS: CALCIUM 6.6 mg/dL (8.8-10.2)
[2019-01-31] MEDS ORDERED: MAGNESIUM SULFATE 2 GM/S.W.I. 2 GM/50 ML IVPB IV ONE (07:03)
[2019-01-31] MEDS ORDERED: POTASSIUM PHOSPHATE 21 MMOL in NS 250 ML IV ONE (07:05)
--- NOTE | 2019-01-31 07:13 | Diag Imaging Result Doc PS360 ---
EXAM: CHEST-PORTABLE 01/31/2019 HISTORY: respiratory failure TECHNIQUE: AP portable at 0524 COMMENT: There is an endotracheal tube with its tip at the thoracic inlet and an NG tube with its tip below the diaphragm. There is alveolar opacity in the right upper lobe, left apex and right lower lobe. The left lower lobe is fairly clear. The heart size and pulmonary vascularity are within normal limits. Compared to 01/30/2019 the opacification of the right upper lobe is slightly worse. IMPRESSION: Pneumonia in both upper lobes and the right lower lobe. Electronically signed by Perry Richey 01/31/2019 7:10 AM
[2019-01-31] MEDS ORDERED: NS NEB INH SCH (07:30)
[2019-01-31] MEDS: MAXIPIME 1 GM in NS 50 ML IV SCH ×2 (07:46→21:26)
[2019-01-31] MEDS: CLINIMIX E 4.25%-5% SOLUTION 1,000 ML IV SCH (07:46)
--- NOTE | 2019-01-31 07:57 | PROGRESS NOTE ---
DATE: 01/31/2019 SUBJECTIVE: This patient is still on mechanical ventilation and sedated. He has been tachycardic during the night. Blood pressure has mostly in the 90s and 110s. He is still on 100% oxygen flow to mechanical ventilation without oxygen saturation that has been 100% now. PHYSICAL EXAMINATION: Vital Signs: Temperature 100, pulse 136, respiratory rate 23, blood pressure 87/60 with a MAP of 65. Oxygen saturation 100% on mechanical ventilation. HEENT: Head normocephalic. No trauma. PERRLA. Neck: Supple. No JVD. No masses. Central trachea. Chest: Decreased breath sounds globally on the right side mostly at the base, and scattered rhonchi bilaterally. Abdomen: Soft, nontender, and nondistended. No hepatosplenomegaly. Extremities: No edema. No clubbing. No cyanosis. They are a little bit cool. Neurological: The patient is on mechanical ventilation and sedated. Skin: Multiple tattoos. I do not see any signs of infection at this moment. LABORATORY: WBC 5.5, hemoglobin 12, hematocrit 35.5, and platelets 89,000. Sodium 132, potassium 3.2, chloride 103, bicarbonate 17, BUN 27, creatinine 1, glucose 97, calcium 6.6, phosphorus 1.7, and magnesium 1.2. AST 103, ALT 81, and alkaline phosphatase 33. ASSESSMENT AND PLAN: 1. Septic shock. We will continue with same management. He is getting fluid. Continue with vasopressors. We will try to keep the MAP at 65 or more. Infectious Disease Department following this patient. He is already on broad-spectrum antibiotics. He has been having episodes of fever with the highest during the night was around 100.2. Septic shock secondary to right lung pneumonia which is extensive. We will continue with same management for now on mechanical ventilation. 2. Extensive right lower lobe pneumonia. Likely, this is the cause of the septic shock. Continue broad-spectrum antibiotics per Infectious Disease Department. This patient has been placed on mechanical ventilation. Pulmonary Department on board. Immunoglobulin levels within normal limits and HIV is negative. 3. Acute hypoxemic respiratory failure: This patient initially was using the BiPAP machine, but then he was intubated. We will continue with the same management for now. Pulmonary Department on board. 4. Acute kidney injury. His urine output improved compared with yesterday. Now, is between 60- 80 mL/h. We will continue to monitor this closely. 5. Elevated LFTs likely secondary to shock liver. I have requested hepatitis panel as well. 6. Hypomagnesemia. I will replace the magnesium. 7. Hypokalemia. I will replace the potassium. 8. Hypophosphatemia. I will replace the phosphorus. 9. Tobacco abuse. This patient has been highly advised against tobacco use before intubation. 10. Hyponatremia. Resolved. 11. Metabolic acidosis likely due to septic shock, and acute kidney injury. His lactic acid is still high. 12. Dehydration. He seems to be hydrated now. 13. Diarrhea. I have documented one bowel movement which was liquid green yesterday, but C. diff toxin and antigen are negative. WBC in the stool as well. Cultures have been negative so far. 14. Overall, this patient is remarkably sick. Like I mentioned in my previous notes, his prognosis seems to be poor given his current condition, age, smoking history, and multiorgan failure with elevated LFTs, acute kidney injury, low blood pressure, and severe pneumonia. CRITICAL CARE TIME: 30 minutes. cc: Agapito Hunter MD
[2019-01-31] MEDS: XOPENEX NEB INH SCH ×5 (08:19→23:38)
[2019-01-31] MEDS: ATROVENT NEB INH SCH ×5 (08:19→23:37)
[2019-01-31] MEDS: LEVOPHED 8 MG in D5 1/2 NS 250 ML IV SCH ×2 (08:29→14:56)
[2019-01-31 12:46] LABS: HEPATITIS PROFILE ACUTE SEE COMMENTS
--- NOTE | 2019-01-31 13:27 | INFECTIOUS DISEASE PROGRESS NO ---
DATE: 01/31/2019 PRESENT ILLNESS: The patient has an overwhelming gram-negative quinn community-acquired pneumonia. MEDICATIONS: The patient is on a combination of cefepime and Zyvox. PHYSICAL EXAMINATION: Vital Signs: Temperature is 100.2 degrees, pulse 136, respirations 23, blood pressure 87/60. General: This is an ill-appearing, middle-aged male. He is intubated and sedated. Head, Eyes, Ears, Nose, and Throat: As mentioned above, the patient is intubated. He has an orotracheal tube in place. There is no drainage from the nose or ears. Neck: No stiffness. Lungs: Clear to auscultation. Cardiovascular: Heart rate is regular and rapid. Abdomen: Soft and nontender. In the right groin, the patient has an IV catheter in place. The site is not red or swollen. Neurologic: The patient is obtunded. There is no tremor. Integument: The patient has multiple tattoos. Thorax: The patient has an increased AP diameter of the chest. LAB AND X-RAY: Chest x-ray shows bilateral pneumonia. The patient's sputum is growing a gram- negative quinn. Stool for Clostridium difficile toxin and antigen are negative. Blood and urine cultures are negative. HIV antibody screen is nonreactive. Creatinine is 1.0. GFR is greater than 60. IgA is 107, IgG is 986. Blood gases show a pH of 7.42, a PO2 of 178, pCO2 of 26. CBC shows a white count of 5540, hemoglobin 12, and platelet count of 89,000. ASSESSMENT AND PLAN: The patient has an overwhelming pneumonia. I plan to continue cefepime and I have discontinued Zyvox. COMORBIDITIES: The patient is a cigarette smoker. He has chronic obstructive pulmonary disease. cc: Alcides Mota MD
[2019-01-31 18:42] LABS: BASO# 0.01 X1000 (0.0-0.2); BASO% 0.1 % (0.0-0.8); EOS# 0.17 X1000 (0.0-0.7); EOS% 1.9 % (0.0-10.0); HEMATOCRIT 32.9 % (42.0-52.0); IMM GRAN# 0.81 X1000 (0.0-0.04); IMM GRAN% 8.9 % (0.0-0.5); LYMPH# 0.38 X1000 (1.2-3.4); LYMPH% 4.2 % (20.5-51.1); MCH 30.7 PG (27-31); MCHC 33.4 g/dL (33-37); MCV 91.9 FL (81-99); MONO% 2.2 % (1.7-9.3); NEUT# 7.51 X1000 (1.4-6.5); NEUT% 82.7 % (42.2-75.2); PLT 67 X1000 (130-400); RBC 3.58 XMIL (4.7-6.1); RDW 13.9 % (11.5-14.5); WBC 9.08 X1000 (4.8-10.8)
[2019-01-31 18:48] LABS: BANDS 45 % (0-1); EOS 3 % (1-10); LYMPHS 4 % (21-51); MONO 5 % (1-9); SEGS 40 % (42-75)
[2019-01-31 19:00] LABS: MAGNESIUM 1.8 mg/dL (1.5-2.7); PHOSPHORUS 2.2 mg/dL (2.7-4.5)
[2019-01-31 19:07] LABS: AGAP 17; ALB/GLOB RATIO 1.3; ALBUMIN 2.4 g/dL (3.5-5.0); ALKALINE PHOSPHATASE 35 U/L (32-122); BUN 24 mg/dL (8-22); CALCIUM 6.5 mg/dL (8.8-10.2); CHLORIDE 105 mmol/L (98-107); COSMO 281; CREATININE 0.7 mg/dL (0.7-1.2); ESTIMATED GFR > 60; GLUCOSE 90 mg/dL (70-104); GOT 92 U/L (10-34); GPT 77 U/L (10-44); POTASSIUM 3.4 mmol/L (3.5-5.1); SODIUM 139 mmol/L (136-145); TCO2 17 mmol/L (25-35); TOTAL BILIRUBIN 0.63 mg/dL (0.20-1.00); TOTAL PROTEIN 4.3 g/dL (6.3-8.3)
[2019-01-31] MEDS ORDERED: POTASSIUM CHLORIDE 20 MEQ/SWI 20 MEQ/100 ML IVPB IV ONE (20:06)
[2019-01-31] MEDS ORDERED: CALCIUM GLUCONATE 1 GM in NS 50 ML IV ONE (20:06)
[2019-01-31] MEDS ORDERED: NS 50 ML ONE (21:53)
--- NOTE | 2019-02-01 00:51 | PULMONOLOGY PROGRESS NOTE ---
DATE: 01/31/2019 SUBJECTIVE: The patient remains sedated. He remains on vasopressors. OBJECTIVE: Heart rate 139, blood pressure 101/55, respiratory rate 31, oxygen saturation 94%. Maximum temperature in the last 24 hours 100.2 degrees. HEENT: Pupils are equal and reactive. Oropharynx appears clear. Neck is supple. Chest reveals diffuse rhonchi bilaterally. Cardiac exam: Increased rate, regular rhythm. Abdomen is soft. Extremities remain cold to the touch. DIAGNOSTIC DATA: Chest x-ray reveals pneumonia with probable pleural effusion on the right, with some smaller infiltrate on the left. LABORATORY DATA: White blood count 5.54, hemoglobin 12.0, platelet count 89,000. Arterial blood gas reveals a pH of 7.42, pCO2 of 26, pO2 of 178. Sodium 136, potassium 3.2, chloride 103, bicarbonate 17, anion gap 16, BUN 27, creatinine 1.0. Sputum culture is growing a gram-negative quinn. IMPRESSION: 1. A 63-year-old with gram-negative pneumonia. 2. Severe sepsis with septic shock. 3. Hypoxemic respiratory failure. 4. Ongoing lactic acidosis. PLAN: 1. Continue full ventilatory support. 2. Continue vasopressors for shock. 3. Antibiotics under the direction of Dr. Alcides Mota. 4. Continue bronchial hygiene. 5. Overall prognosis is guarded to poor, but marginally improved over the last 24 hours. Time spent in critical care management 35 minutes. cc: Curtis Albrecht MD
[2019-02-01] MEDS: LEVOPHED 8 MG in D5 1/2 NS 250 ML IV SCH ×3 (01:48→18:52)
[2019-02-01] MEDS: DIPRIVAN 1% 1,000 MG/100 ML BOTTLE IV SCH ×3 (02:47→22:25)
[2019-02-01] MEDS: ATROVENT NEB INH SCH ×6 (03:30→23:27)
[2019-02-01] MEDS: XOPENEX NEB INH SCH ×6 (03:30→23:27)
[2019-02-01 04:31] LABS: ALLEN TEST YES; BE -5.2 mmoll (-3.0-3.0); BLOOD TYPE ARTERIAL; HCO3-(ACT) 20.8 mmoll (20.0-26.0); METHB 2.7 % (0.0-1.5); O2(CT) 15.2 mL/dL (15.0-23.0); O2HB 95.5 % (95.0-99.0); PCO2(98.6) 26 mmHg (35-45); PO2(98.6) 142 mmHg (60-100); SAMPLE BLOOD; SAO2 99.3 % (95.0-100.0); SRATE 24 BPM; THB 11.1 g/dL (11.5-17.4); TVOL 700 mL; pH(98.6) 7.44 (7.35-7.45)
[2019-02-01 04:33] LABS: MODALITY VENTILATOR
[2019-02-01] MEDS: CLINIMIX E 4.25%-5% SOLUTION 1,000 ML IV SCH ×2 (05:37→07:19)
[2019-02-01] MEDS: NS 1,000 ML IV SCH ×2 (05:37→18:05)
[2019-02-01 06:18] LABS: HEMATOCRIT 31.4 % (42.0-52.0); HEMOGLOBIN 10.6 g/dL (14.0-18.0); MCH 31.1 PG (27-31); MCHC 33.8 g/dL (33-37); MCV 92.1 FL (81-99); MPV 13.1 FL (7.4-10.4); RBC 3.41 XMIL (4.7-6.1); RDW 13.7 % (11.5-14.5); WBC 14.08 X1000 (4.8-10.8)
[2019-02-01 06:46] LABS: MAGNESIUM 1.9 mg/dL (1.5-2.7); PHOSPHORUS 1.7 mg/dL (2.7-4.5)
[2019-02-01 06:48] LABS: AGAP 18; ALB/GLOB RATIO 0.8; ALBUMIN 2.2 g/dL (3.5-5.0); ALKALINE PHOSPHATASE 57 U/L (32-122); BUN 22 mg/dL (8-22); CALCIUM 7.6 mg/dL (8.8-10.2); CHLORIDE 107 mmol/L (98-107); COSMO 282; CREATININE 0.6 mg/dL (0.7-1.2); ESTIMATED GFR > 60; GLUCOSE 86 mg/dL (70-104); GOT 93 U/L (10-34); GPT 82 U/L (10-44); SODIUM 140 mmol/L (136-145); TCO2 15 mmol/L (25-35); TOTAL BILIRUBIN 0.65 mg/dL (0.20-1.00); TOTAL PROTEIN 5.1 g/dL (6.3-8.3)
--- NOTE | 2019-02-01 07:37 | Diag Imaging Result Doc PS360 ---
EXAM: CHEST-PORTABLE 02/01/2019 HISTORY: respiratory failure TECHNIQUE: AP portable at 0531 COMMENT: There is an N G-tube passing below the diaphragm, and an endotracheal tube with its tip at the thoracic inlet. There is ill-defined opacity throughout the right lung and in the left lower lobe and lingula. There may be pleural fluid collection on the right. The left basilar opacities have worsened slightly since 01/31/2019, otherwise are has been no significant change. IMPRESSION: Worsened pneumonia plus minus pulmonary edema. Electronically signed by Perry Richey 02/01/2019 7:35 AM
[2019-02-01] MEDS: PROTONIX IV SCH ×2 (08:00→18:05)
[2019-02-01] MEDS ORDERED: LASIX IV ONE (08:06)
[2019-02-01] MEDS: ROCEPHIN 1 GM in NS 50 ML IV SCH ×2 (09:20→19:51)
--- NOTE | 2019-02-01 09:56 | PROGRESS NOTE ---
DATE: 02/01/2019 SUBJECTIVE: The patient is still on mechanical ventilation and sedated. He is still tachycardic. He is still on pressors. Blood pressure seems to be mostly in the 100s, MAP seems to be stable. He is having good urine output, and we have been decreasing the pressors. OBJECTIVE: Vital Signs: Temperature 98.7 degrees, pulse 124, respiratory rate 28, blood pressure 121/72, oxygen saturation 100% on mechanical ventilation. HEENT: Head normocephalic, no trauma. PERRLA. Neck: Supple. No JVD. No masses. Central trachea. Chest: Decreased breath sounds globally, but especially on the right side. Rhonchi bilaterally. Abdomen: Soft, nontender, nondistended. No hepatosplenomegaly. Extremities: No edema, no clubbing, no cyanosis. Neurological examination: The patient is on mechanical ventilation and sedated. Skin: Multiple tattoos. I do not see any signs of infection at this moment. LABORATORY: WBC 14, hemoglobin 10.6, hematocrit 31.4, platelets 86. Sodium 140, potassium 4, chloride 107, bicarbonate 15. BUN 22, creatinine 0.6, glucose 86, calcium 7.6. AST 93, ALT 82, alkaline phosphatase 57. ASSESSMENT AND PLAN: 1. Septic shock. Continue with same management. He is getting fluids. Continue with vasopressors. We will continue trying to keep the MAP at 65 or more. Infectious Disease Department on board. Culture showed Klebsiella pneumonia. Continue with antibiotics. 2. Extensive right-sided pneumonia, continue antibiotics per Infectious Disease Department. 3. Pulmonary edema. He is still getting gentle intravenous fluids. I will give him one dose of Lasix to see how he does. 4. Acute hypoxemic respiratory failure. Continue with mechanical ventilation. 5. Acute kidney injury, resolved. 6. Elevated liver function tests, likely secondary to shock liver. I have requested a hepatitis panel as well. 7. Hypomagnesemia, stable. 8. Hypokalemia, stable. 9. Tobacco abuse. This patient has been advised already against tobacco use. 10. Hyponatremia, resolved. 11. Metabolic acidosis, likely due to septic shock, acute kidney injury. 12. Dehydration, resolved. 13. Diarrhea. No bowel movements today. One bowel movement yesterday. Overall, this patient is remarkably sick, but he seems to be improving a little bit. We will continue with the same management. He does have poor prognosis though. CRITICAL CARE TIME: 40 minutes. cc: Agapito Hunter MD
--- NOTE | 2019-02-01 13:29 | INFECTIOUS DISEASE PROGRESS NO ---
DATE: 02/01/2019 PRESENT ILLNESS: The patient has an overwhelming Klebsiella bilateral pneumonia. MEDICATIONS: The patient is receiving cefepime. PHYSICAL EXAMINATION: Vital Signs: Temperature is 100 degrees, pulse 124, respirations 28, blood pressure 121/72. General: This is a chronically ill and malnourished-appearing, middle-aged male. He is in no acute distress. Head, eyes, ears, nose, and throat: The patient is intubated. An orotracheal tube is in place. He also has an NG tube in place. Neck: No stiffness. Lungs: Clear to auscultation. Cardiovascular: Heart rate is regular and rapid. Abdomen: Soft and nontender. Thorax: The patient has an increased AP diameter of the chest. Abdomen: Soft and nontender. : In the right groin the patient has an IV catheter in place. Neurologic: The patient is sedated. He did not respond to verbal stimuli. Integument: The patient has multiple tattoos. DIAGNOSTIC DATA: The patient's chest x-ray shows bilateral opacities. The patient's CBC shows a white count of 14,080, hemoglobin 10.6, and platelet count 86,000. Creatinine is 0.6, GFR is greater than 60. The patient's sputum grew out Klebsiella. ASSESSMENT AND PLAN: The patient has an overwhelming Klebsiella pneumonia. I have discontinued cefepime and put the patient on Rocephin 1 g IV every 12 hours. COMORBIDITIES: The patient is a cigarette smoker and he has chronic obstructive pulmonary disease. cc: Alcides Mota MD
--- NOTE | 2019-02-01 21:35 | PULMONOLOGY PROGRESS NOTE ---
DATE: 02/01/2019 SUBJECTIVE: The patient remains sedated. He remains on vasopressors. OBJECTIVE: Maximum temperature in the last 24 hours 100.4 degrees. HEENT: Pupils are equal and reactive. Oropharynx appears dry but clear. Neck is supple. Chest reveals diminished breath sounds predominantly on the right with coarse rhonchi bilaterally. Cardiac exam: Increased rate, regular rhythm. Abdomen is soft, with diminished bowel sounds. Extremities are cool to the touch. LABORATORY DATA: Arterial blood gas pH is 7.44, pCO2 of 26, pO2 of 142 with a lactate of 4.8. White blood count 14.08, hemoglobin 10.6, platelet count 86,000. DIAGNOSTIC DATA: Chest x-ray reveals diffuse infiltrate on the right with slight worsening at the left base. IMPRESSION: A 63-year-old with: 1. Klebsiella pneumonia. 2. Severe sepsis and septic shock, with ongoing lactic acidosis. 3. Hypoxemic respiratory failure. DISCUSSION: A 63-year-old with problems outlined above. Clinically he has improved marginally. I will consider initiating spontaneous breathing trial tomorrow if his oxygen requirements are decreasing. TIME IN CRITICAL CARE MANAGEMENT: 35minutes cc: Curtis Albrecht MD MTDD
[2019-02-02] MEDS: ATROVENT NEB INH SCH ×6 (03:47→23:27)
[2019-02-02] MEDS: XOPENEX NEB INH SCH ×6 (03:47→23:27)
[2019-02-02 04:39] LABS: ALLEN TEST YES; BE -2.6 mmoll (-3.0-3.0); BLOOD TYPE ARTERIAL; HCO3-(ACT) 22.7 mmoll (20.0-26.0); METHB 2.2 % (0.0-1.5); O2(CT) 19.9 mL/dL (15.0-23.0); O2HB 92.4 % (95.0-99.0); PCO2(98.6) 31 mmHg (35-45); PO2(98.6) 71 mmHg (60-100); SAMPLE BLOOD; SAO2 95.9 % (95.0-100.0); SRATE 24 BPM; THB 15.3 g/dL (11.5-17.4); TVOL 650 mL; pH(98.6) 7.43 (7.35-7.45)
[2019-02-02 04:40] LABS: MODALITY VENTILATOR
[2019-02-02] MEDS: CLINIMIX E 4.25%-5% SOLUTION 1,000 ML IV SCH (06:14)
[2019-02-02] MEDS: PROTONIX IV SCH ×2 (06:15→18:01)
[2019-02-02] MEDS: NS 1,000 ML IV SCH ×3 (06:15→19:56)
[2019-02-02] MEDS: DIPRIVAN 1% 1,000 MG/100 ML BOTTLE IV SCH ×2 (06:15→08:23)
[2019-02-02 06:32] LABS: HEMATOCRIT 30.8 % (42.0-52.0); HEMOGLOBIN 10.6 g/dL (14.0-18.0); MCH 31.3 PG (27-31); MCHC 34.4 g/dL (33-37); MCV 90.9 FL (81-99); MPV 13.6 FL (7.4-10.4); RBC 3.39 XMIL (4.7-6.1); RDW 13.7 % (11.5-14.5); WBC 17.33 X1000 (4.8-10.8)
[2019-02-02 06:41] LABS: AGAP 15; ALB/GLOB RATIO 0.6; ALBUMIN 2.1 g/dL (3.5-5.0); ALKALINE PHOSPHATASE 116 U/L (32-122); BUN 25 mg/dL (8-22); CALCIUM 7.9 mg/dL (8.8-10.2); CHLORIDE 107 mmol/L (98-107); COSMO 288; CREATININE 0.6 mg/dL (0.7-1.2); ESTIMATED GFR > 60; GLUCOSE 109 mg/dL (70-104); GOT 68 U/L (10-34); GPT 85 U/L (10-44); POTASSIUM 3.7 mmol/L (3.5-5.1); SODIUM 142 mmol/L (136-145); TCO2 20 mmol/L (25-35); TOTAL BILIRUBIN 0.77 mg/dL (0.20-1.00); TOTAL PROTEIN 5.5 g/dL (6.3-8.3)
--- NOTE | 2019-02-02 07:26 | Diag Imaging Result Doc PS360 ---
EXAM: CHEST-PORTABLE 02/02/2019 HISTORY: respiratory failure TECHNIQUE: AP portable at 0541 COMMENT: There is an endotracheal tube with its tip at thoracic inlet and an NG tube which passes below the diaphragm. There is patchy ill-defined alveolar and interstitial opacity bilaterally particularly in the right lung and particularly in the upper and lower lobes. The heart size is not enlarged. Compared to 02/01/2019 there may be slight improvement. IMPRESSION: Pneumonia plus minus pulmonary edema. Electronically signed by Perry Richey 02/02/2019 7:24 AM
[2019-02-02] MEDS: ROCEPHIN 1 GM in NS 50 ML IV SCH ×2 (08:23→20:53)
--- NOTE | 2019-02-02 09:45 | PROGRESS NOTE ---
DATE: 02/02/2019 SUBJECTIVE: The patient is still on mechanical ventilation and sedated. He is still tachycardic and tachypneic. His oxygen requirement has been decreasing. He is still on vasopressors, but low dose. I believe he is improving slowly but marginally. OBJECTIVE: Vital Signs: Temperature 98.9 degrees, pulse 102, respiratory rate 24, blood pressure 128/83, oxygen saturation 99 on mechanical ventilation. HEENT: Head normocephalic, no trauma. PERRLA. Neck: Supple. No JVD. No masses. Central trachea. Chest: Decreased breath sounds globally but especially on the right side with rhonchi bilaterally. Abdomen: Soft, nontender, nondistended. No hepatosplenomegaly. Extremities: No edema, no clubbing, no cyanosis. Neurological: The patient is on mechanical ventilation and sedated. Skin: Multiple tattoos. I do not see any signs of infection at this moment. LABORATORY: WBC 17.3, hemoglobin 10.6, hematocrit 30.8, platelet 85,000. Sodium 142, potassium 3.7, chloride 107, bicarbonate 20, BUN 25, creatinine 0.6, glucose 109, calcium 7.9, AST 68, ALT 85, alkaline phosphatase 116, albumin 2.1. ASSESSMENT AND PLAN: 1. Septic shock. Continue with the same management. He is getting fluids. Continue vasopressors. Infectious Disease Department on board. Culture showed Klebsiella pneumonia. Continue antibiotics. 2. Extensive right-sided pneumonia due to Klebsiella. Continue antibiotics per Infectious Disease Department. 3. Pulmonary edema. He is getting gentle IV fluids. He received a dose of Lasix yesterday, 2.6 L of urine was documented. I will monitor. 4. Acute hypoxemic respiratory failure. Continue with mechanical ventilation for now. 5. Acute kidney injury, resolved. 6. Elevated LFTs likely secondary to shock liver. Hepatitis panel is positive and/or reactive for hepatitis C antibody. 7. Hepatitis C. I am not quite sure if this patient had a history of hepatitis. He was told before that he has some kind of liver problems, but he did specify what kind of problem was. 8. Hypomagnesemia resolved. 9. Hypokalemia resolved. 10. Tobacco abuse. He was advised against tobacco use and I will continue with daily cessation education once the patient is extubated. 11. Hyponatremia resolved. 12. Metabolic acidosis, likely secondary to septic shock, acute kidney injury. 13. Dehydration resolved. 14. Diarrhea. His bowel movements now more soft than liquid. We will monitor. CRITICAL CARE TIME: 35 minutes. cc: Agapito Hunter MD
[2019-02-02] MEDS: LOVENOX SUBQ SCH (11:45)
--- NOTE | 2019-02-02 12:48 | PULMONOLOGY PROGRESS NOTE ---
DATE: 02/02/2019 SUBJECTIVE: The patient remains sedated. He remains on vasopressors. His oxygen requirements are decreasing. OBJECTIVE: Vital signs: Blood pressure 112/69, heart rate 98, respiratory rate 24, maximum temperature in the last 24 hours 100.4 degrees. HEENT: Pupils are equal and reactive. Oropharynx is clear. Neck: Supple. Chest: Reveals coarse rhonchi bilaterally. Cardiac: S1, S2. Abdomen: Soft with diminished bowel sounds. Extremities: Cool to the touch. IMAGING: Chest x-ray reveals diffuse infiltrates on the right with smaller infiltrates on the left. No change. LABORATORY DATA: White blood count 17.3, hemoglobin 10.6, platelet count 85,000. Chemistries: Sodium 142, potassium 3.7, chloride 107, bicarbonate 20, BUN 25, creatinine 0.6. IMPRESSION: A 63-year-old with: 1. Klebsiella pneumonia. 2. Acute hypoxemic respiratory failure. 3. Severe sepsis and septic shock. PLAN: 1. Continue mechanical ventilation. He failed a breathing trial this morning. 2. Continue current antibiotic regimen. 3. Initiate low-dose Lovenox now that his GI bleeding has ceased. Time spent in critical care management: 30+ minutes cc: Curtis Albrecht MD MTDD
[2019-02-03] MEDS: DIPRIVAN 1% 1,000 MG/100 ML BOTTLE IV SCH (00:14)
[2019-02-03] MEDS: XOPENEX NEB INH SCH ×6 (03:45→23:30)
[2019-02-03] MEDS: ATROVENT NEB INH SCH ×6 (03:45→23:30)
[2019-02-03 04:40] LABS: BLOOD TYPE ARTERIAL; SAMPLE BLOOD
[2019-02-03 04:41] LABS: ALLEN TEST YES; BE -1.9 mmoll (-3.0-3.0); HCO3-(ACT) 23.4 mmoll (20.0-26.0); METHB 2.1 % (0.0-1.5); O2(CT) 15.7 mL/dL (15.0-23.0); O2HB 94.4 % (95.0-99.0); PCO2(98.6) 25 mmHg (35-45); PO2(98.6) 98 mmHg (60-100); SRATE 20 BPM; THB 11.7 g/dL (11.5-17.4); TVOL 700 mL; pH(98.6) 7.51 (7.35-7.45)
[2019-02-03 04:42] LABS: MODALITY VENTILATOR
[2019-02-03] MEDS: PROTONIX IV SCH ×3 (05:55→18:37)
[2019-02-03] MEDS: CLINIMIX E 4.25%-5% SOLUTION 1,000 ML IV SCH (05:55)
[2019-02-03 06:15] LABS: HEMOGLOBIN 9.8 g/dL (14.0-18.0); RBC 3.22 XMIL (4.7-6.1); WBC 12.02 X1000 (4.8-10.8)
[2019-02-03 06:16] LABS: HEMATOCRIT 28.5 % (42.0-52.0); MCH 30.4 PG (27-31); MCHC 34.4 g/dL (33-37); MCV 88.5 FL (81-99); MPV 12.1 FL (7.4-10.4); RDW 13.7 % (11.5-14.5)
[2019-02-03 06:54] LABS: AGAP 14; ALB/GLOB RATIO 0.6; ALBUMIN 1.9 g/dL (3.5-5.0); ALKALINE PHOSPHATASE 137 U/L (32-122); BUN 28 mg/dL (8-22); CALCIUM 7.9 mg/dL (8.8-10.2); CHLORIDE 112 mmol/L (98-107); COSMO 294; CREATININE 0.5 mg/dL (0.7-1.2); ESTIMATED GFR > 60; GLUCOSE 99 mg/dL (70-104); GOT 47 U/L (10-34); GPT 55 U/L (10-44); POTASSIUM 3.7 mmol/L (3.5-5.1); SODIUM 145 mmol/L (136-145); TCO2 19 mmol/L (25-35); TOTAL BILIRUBIN 0.83 mg/dL (0.20-1.00)
[2019-02-03] MEDS ORDERED: LASIX IV ONE (06:55)
--- NOTE | 2019-02-03 07:05 | Diag Imaging Result Doc PS360 ---
EXAM: CHEST-PORTABLE 02/03/2019 HISTORY: respiratory failure TECHNIQUE: AP portable at 0524 COMMENT: There is an endotracheal tube with its tip at the thoracic inlet and an NG tube with the tip of which is just within the fundus of the stomach. There is diffuse interstitial and alveolar opacity particularly in the right lower lobe. Compared to 02/02/2019 this is worsened slightly in the left lower lobe but improved in the right upper lobe. IMPRESSION: Waxing and waning pulmonary edema and/or pneumonia. Electronically signed by Perry Richey 02/03/2019 7:02 AM
--- NOTE | 2019-02-03 07:31 | PROGRESS NOTE ---
DATE: 02/03/2019 SUBJECTIVE: This patient is still on mechanical ventilation and sedated. He has some bilateral crackles. I will give him a dose of Lasix. Otherwise, I will continue with the same management. It looks like he failed a breathing trial yesterday. Probably, we will try to do it again today. He is not on vasopressors. Continue to monitor in the ICU. OBJECTIVE: Vital Signs: Temperature 99.1 degrees, pulse 104, respiratory rate 20, blood pressure 107/66, oxygen saturation 99 on mechanical ventilation. HEENT: Head normocephalic. No trauma. PERRLA. Neck: Supple. No JVD. No masses. Central trachea. Chest: Decreased breath sounds globally, especially on the right side, and rhonchi bilaterally. Bilateral scattered crackles. Abdomen: Soft, nontender, nondistended. No hepatosplenomegaly. Extremities: No edema, no clubbing, no cyanosis. Neurological Examination: The patient is on mechanical ventilation and sedated. Skin: Multiple tattoos. I do not see any signs of infection at this moment. Laboratory: WBC 12, hemoglobin 9.8, hematocrit 28.5, platelets 77,000. Sodium 145, potassium 3.7, chloride 112, bicarbonate 19, BUN 28, creatinine 0.5, glucose 99, calcium 7.9. AST 47, ALT 55, alkaline phosphatase 137, albumin 1.9. ASSESSMENT AND PLAN: 1. Septic shock. He is no longer on pressors. Infectious disease department on board. He does have Klebsiella pneumonia. Continue with antibiotics. WBC better. 2. Extensive right-sided pneumonia due to Klebsiella. Continue with antibiotics per infectious disease department. 3. Pulmonary edema. He had intravenous fluids. He received a dose of Lasix a couple days ago. I will repeat it today. He will receive an extra dose of Lasix today. He has some crackles bilaterally. 4. Acute hypoxemic respiratory failure. Continue mechanical ventilation for now. Probably, we will do a breathing trial today. 5. Acute kidney injury, resolved. 6. Elevated liver function tests, likely secondary to shock liver and also this patient has a history of hepatitis C. 7. Hepatitis C. I am not quite sure if this patient had a history of hepatitis before but he told me at the moment of admission that he was told that he has some liver problems but he did not specify what kind of problems though. He needs to be treated as an outpatient once he is better. 8. Hypomagnesemia, resolved. 9. Hypokalemia, resolved. 10. Hyponatremia, resolved. 11. Metabolic acidosis, likely secondary to septic shock. 12. Acute kidney injury. 13. Dehydration, resolved. 14. Diarrhea. It looks like he has had a bowel movement that was soft and green, I believe yesterday. 15. Critical care time of 35 minutes. cc: Agapito Hunter MD
[2019-02-03] MEDS: ROCEPHIN 1 GM in NS 50 ML IV SCH ×2 (07:44→19:35)
[2019-02-03] MEDS: NS 1,000 ML IV SCH ×2 (07:44→10:20)
[2019-02-03] MEDS ORDERED: ATIVAN IV ONE (10:56)
[2019-02-03] MEDS ORDERED: MORPHINE IV ONE (10:57)
[2019-02-03] MEDS ORDERED: ATIVAN ONE (11:07)
[2019-02-03] MEDS: LOVENOX SUBQ SCH (11:07)
[2019-02-03] MEDS ORDERED: MORPHINE ONE (11:07)
[2019-02-03 12:07] LABS: ALLEN TEST YES; BE -0.8 mmoll (-3.0-3.0); BLOOD TYPE ARTERIAL; HCO3-(ACT) 24.3 mmoll (20.0-26.0); O2(CT) 11.9 mL/dL (15.0-23.0); O2HB 94.2 % (95.0-99.0); PCO2(98.6) 41 mmHg (35-45); PO2(98.6) 73 mmHg (60-100); SAMPLE BLOOD; SAO2 98.8 % (95.0-100.0); THB 8.9 g/dL (11.5-17.4); pH(98.6) 7.38 (7.35-7.45)
[2019-02-03 12:09] LABS: MODALITY VENTILATOR
--- NOTE | 2019-02-03 14:19 | PULMONOLOGY PROGRESS NOTE ---
DATE: 02/03/2019 SUBJECTIVE: The patient is sedated but a breathing trial has been initiated. He has been weaned off vasopressors this morning. OBJECTIVE: Vital Signs: Maximum temperature in the last 24 hours was 100.2 degrees, BP 117/66, heart rate 109, respiratory rate 20, oxygen saturation 94% on 40% FiO2. HEENT: Pupils are equal and reactive. Oropharynx appears clear but dry. Neck: Supple. Chest: Reveals rhonchi bilaterally with decreased breath sounds at the right base. Cardiac Examination: Increased rate, regular rhythm. Abdomen: Soft, with diminished bowel sounds. Extremities: Slightly cool to the touch. Laboratories: White blood count 12.02, hemoglobin 9.8, platelet count 77,000. Sodium 145, potassium 3.7, chloride 112, BUN 28, creatinine 0.5. Arterial blood gas reveals a pH of 7.38, pCO2 of 41, PO2 of 73, on a CPAP weaning trial. Chest x-ray reveals infiltrate and effusion at the right lung base with minor infiltrate at the left base. IMPRESSION: A 63-year-old with: 1. Klebsiella pneumonia. 2. Severe sepsis and septic shock, which is resolving. 3. Acute hypoxemic respiratory failure. 4. Protein calorie malnutrition. PLAN: 1. Anticipate extubation today after a breathing trial. 2. Continue current antibiotics. 3. Continue current dose of Lovenox with anticipation of increasing dose tomorrow. Time spent in critical care management: 30+ minutes cc: Curtis Albrecht MD MTDD
[2019-02-03] MEDS: TYLENOL PR PRN (23:41)
[2019-02-04] MEDS: NS 1,000 ML IV SCH (01:22)
[2019-02-04] MEDS: XOPENEX NEB INH SCH ×5 (03:08→19:34)
[2019-02-04] MEDS: ATROVENT NEB INH SCH ×5 (03:08→19:34)
[2019-02-04] MEDS: DIPRIVAN 1% 1,000 MG/100 ML BOTTLE IV SCH (03:24)
[2019-02-04 04:32] LABS: ALLEN TEST YES; BE 0.2 mmoll (-3.0-3.0); BLOOD TYPE ARTERIAL; METHB 2.1 % (0.0-1.5); O2(CT) 15.2 mL/dL (15.0-23.0); O2HB 94.8 % (95.0-99.0); PCO2(98.6) 31 mmHg (35-45); PO2(98.6) 98 mmHg (60-100); SAMPLE BLOOD; SAO2 98.5 % (95.0-100.0); SRATE 20 BPM; THB 11.3 g/dL (11.5-17.4); TVOL 700 mL; pH(98.6) 7.48 (7.35-7.45)
[2019-02-04 04:34] LABS: MODALITY VENTILATOR
[2019-02-04] MEDS: CLINIMIX E 4.25%-5% SOLUTION 1,000 ML IV SCH ×2 (06:02→09:57)
[2019-02-04] MEDS: PROTONIX IV SCH ×2 (06:02→18:45)
[2019-02-04 06:29] LABS: AGAP 14; ALB/GLOB RATIO 0.6; ALBUMIN 2.1 g/dL (3.5-5.0); ALKALINE PHOSPHATASE 147 U/L (32-122); BUN 27 mg/dL (8-22); CALCIUM 8.1 mg/dL (8.8-10.2); CHLORIDE 112 mmol/L (98-107); COSMO 300; CREATININE 0.5 mg/dL (0.7-1.2); ESTIMATED GFR > 60; GLUCOSE 115 mg/dL (70-104); GOT 40 U/L (10-34); GPT 45 U/L (10-44); POTASSIUM 3.8 mmol/L (3.5-5.1); SODIUM 148 mmol/L (136-145); TCO2 22 mmol/L (25-35); TOTAL BILIRUBIN 1.32 mg/dL (0.20-1.00); TOTAL PROTEIN 5.4 g/dL (6.3-8.3)
--- NOTE | 2019-02-04 06:45 | Diag Imaging Result Doc PS360 ---
EXAM: CHEST-PORTABLE HISTORY: respiratory failure TECHNIQUE: Chest single view COMPARISON: 02/03/2019 FINDINGS: Endotracheal and nasogastric tubes in good position. There are increased interstitial markings throughout both lungs. These are more pronounced in the lung bases. There are small pleural effusions. No cardiomegaly. IMPRESSION: No interval improvement. Electronically signed by Ken Zaragoza 02/04/2019 6:42 AM
[2019-02-04 06:53] LABS: MAGNESIUM 1.8 mg/dL (1.5-2.7); PHOSPHORUS 2.2 mg/dL (2.7-4.5)
[2019-02-04 07:00] LABS: HEMATOCRIT 31.6 % (42.0-52.0); HEMOGLOBIN 10.7 g/dL (14.0-18.0); MCH 30.2 PG (27-31); MCHC 33.9 g/dL (33-37); MCV 89.3 FL (81-99); MPV 11.7 FL (7.4-10.4); RBC 3.54 XMIL (4.7-6.1); WBC 17.2 X1000 (4.8-10.8)
[2019-02-04] MEDS ORDERED: POTASSIUM PHOSPHATE 15 MMOL in NS 250 ML IV ONE (07:35)
[2019-02-04] MEDS: ROCEPHIN 1 GM in NS 50 ML IV SCH ×2 (07:48→20:25)
[2019-02-04] MEDS: D5W 1,000 ML IV SCH (08:00)
--- NOTE | 2019-02-04 08:09 | PROGRESS NOTE ---
DATE: 02/04/2019 SUBJECTIVE: This patient is still on mechanical ventilation and sedated. His sodium level is a little bit high. I will increase the rate of the Clinimix, and I will stop the normal saline and put him on D-5-W. I will continue to monitor. Phosphorus level still is also low. I will give him potassium phosphate. OBJECTIVE: Vital Signs: Temperature 98.1 degrees, but he has been having some low-grade temperature at 100.2 degrees and 100.3 degrees. Pulse 114, respiratory rate 24, blood pressure 142/86, oxygen saturation 100% on mechanical ventilation. HEENT: Head normocephalic, no trauma. PERRLA. Neck: Supple. No JVD. No masses. Central trachea. Chest: Decreased breath sounds globally, especially on the right side, and rhonchi bilaterally and crepitus. Abdomen: Soft, nontender, nondistended. No hepatosplenomegaly. Extremities: No edema, no clubbing, no cyanosis. Neurological: The patient is on mechanical ventilation and sedated. Skin: Multiple tattoos. LABORATORY DATA: WBC 17.2, hemoglobin 10.7, hematocrit 31.6, and platelets 89,000. Sodium 148, potassium 3.8, chloride 112, bicarbonate 22, BUN 27, creatinine 0.5 glucose 115, calcium 9.1, phosphorus 2.2. ASSESSMENT AND PLAN: 1. Septic shock. He is no longer on pressors. Infectious Disease Department on board. We will continue following their recommendations. He does have Klebsiella pneumonia infection. 2. Extensive right-sided pneumonia due to Klebsiella. Continue with antibiotics per Infectious Disease Department. 3. Pulmonary edema. He has some small pleural effusion. We will monitor for now. 4. Hypernatremia. I will start this patient on D-5-W. I have increased the Clinimix. 5. Acute hypoxemic respiratory failure. Continue with mechanical ventilation. We will try to extubate this patient soon. 6. Acute kidney injury, resolved. 7. Elevated liver function tests, likely secondary to shock liver and also a history of hepatitis C. 8. Hepatitis C, aware. I am not quite sure if this patient knows about this disease since he told me at the moment of admission that he had some liver problems, though he does not remember what kind of problems they wear. 9. Hypomagnesemia, resolved. 10. Hypokalemia, resolved. 11. Hypernatremia. I will treated with D-5-W and I will monitor. 12. Hypophosphatemia. I will replace. 13. Metabolic acidosis, likely secondary to septic shock. 14. Dehydration, resolved. 15. Diarrhea, improving. 16. Prophylaxis with Lovenox. No signs of bleeding. Gastrointestinal prophylaxis with pantoprazole. cc: Agapito Hunter MD
--- NOTE | 2019-02-04 08:24 | PULMONOLOGY PROGRESS NOTE ---
DATE: 02/04/2019 INTERIM HISTORY: The patient passed a spontaneous breathing trial yesterday with the exception of a poor mental status despite being off sedation. He was kept off propofol until the last shift when it was restarted at a low-dose due to tachypnea. He does open his eyes to stimulation this morning, which is more responsive than yesterday morning. OBJECTIVE: Vital Signs: Maximum temperature in the last 24 hours 100.3 degrees, blood pressure 142/86, heart rate 114, respiratory rate 24, oxygen saturation 100%. HEENT: Pupils are equal and reactive. Oropharynx appears dry but clear. Neck is supple. Chest reveals decreased breath sounds, right base. Cardiac Examination: S1, S2. Abdomen is soft. Extremities: Without edema. Laboratories: White blood count 17.2, hemoglobin 10.7, platelet count 89,000. Sodium 148, potassium 3.8, chloride 112, bicarbonate 22, BUN 27, creatinine 0.5, phosphorus 2.2, magnesium 1.8. Arterial blood gas, pH 7.48, pCO2 of 31, PO2 of 98 on 40% FiO2. Chest x- ray reveals persistent increased density at the right base with small effusion at the left. No change from yesterday. IMPRESSION: A 63-year-old with: 1. Klebsiella pneumonia. 2. Acute hypoxemic respiratory failure. 3. Protein calorie malnutrition. 4. Severe sepsis with septic shock on presentation, which is resolving. PLAN: 1. Reinitiate spontaneous breathing trial this morning. Hopefully, his mental status will improve to the point that he can be extubated. 2. Continue current antibiotic regimen. 3. Agree with addition of free water to our current regimen. 4. Increase Lovenox dosing as ordered by Dr. Adhikari. 5. Time spent in critical care management, 30 plus minutes. Time spent in critical care management: 30+ minutes cc: MD ISH Garcia
[2019-02-04 08:38] LABS: ALLEN TEST YES; BE 0.8 mmoll (-3.0-3.0); BLOOD TYPE ARTERIAL; HCO3-(ACT) 25.5 mmoll (20.0-26.0); METHB 1.9 % (0.0-1.5); O2(CT) 12.2 mL/dL (15.0-23.0); O2HB 93.3 % (95.0-99.0); PCO2(98.6) 39 mmHg (35-45); PO2(98.6) 74 mmHg (60-100); SAMPLE BLOOD; SAO2 96.8 % (95.0-100.0); THB 9.2 g/dL (11.5-17.4); pH(98.6) 7.42 (7.35-7.45)
[2019-02-04 08:39] LABS: MODALITY VENTILATOR
[2019-02-04 10:35] LABS: HCV BY PCR SEE COMMENTS
--- NOTE | 2019-02-04 15:18 | INFECTIOUS DISEASE PROGRESS NO ---
DATE: 02/04/2019 PRESENT ILLNESS: The patient has an overwhelming Klebsiella bacterial pneumonia. MEDICATIONS: The patient is receiving Rocephin 1 g IV every 12 hours. The patient has had a total of 5 days of treatment for his overwhelming Klebsiella pneumonia. PHYSICAL EXAMINATION: Vital Signs: Temperature is 99 degrees, pulse 116, respirations 28, blood pressure 157/93. General: This is a chronically ill-appearing and malnourished-appearing middle- aged male. He is intubated and sedated. Head/eyes/ears/nose/throat: Patient has an orotracheal tube in place. There is no drainage from the nose or ears. Neck: No stiffness. Lungs: Clear to auscultation. Cardiovascular: Heart rate is regular and rapid. Abdomen: Soft and not tender. Patient has a right groin IV catheter in place. Thorax: Patient has an increased AP diameter of the chest. Neurologic: The patient is sedated. He did not respond to verbal stimuli. Integument: Patient has multiple tattoos. LAB AND X-RAY FINDINGS: Blood gases show a pH of 7.42, a PO2 of 74, pCO2 of 39. CBC shows a white count of 17,200, hemoglobin 10.7, platelet count 89,000. Alkaline phosphatase is 147, creatinine 0.5, GFR is greater than 60. The patient has bilateral interstitial markings. ASSESSMENT AND PLAN: Patient has overwhelming Klebsiella pneumonia. The plan is to continue with Rocephin. COMORBIDITIES: The patient has COPD and he is a cigarette smoker. cc: Alcides Mota MD
[2019-02-04] MEDS ORDERED: NS 50 ML ONE (20:25)
[2019-02-05] MEDS: ATROVENT NEB INH SCH ×7 (00:15→23:13)
[2019-02-05] MEDS: XOPENEX NEB INH SCH ×7 (00:15→23:13)
[2019-02-05] MEDS: CLINIMIX E 4.25%-5% SOLUTION 1,000 ML IV SCH ×2 (03:15→22:48)
[2019-02-05] MEDS: D5W 1,000 ML IV SCH (03:15)
[2019-02-05 04:18] LABS: ALLEN TEST YES; BE 3.6 mmoll (-3.0-3.0); BLOOD TYPE ARTERIAL; HCO3-(ACT) 27.7 mmoll (20.0-26.0); METHB 2.6 % (0.0-1.5); O2(CT) 15.2 mL/dL (15.0-23.0); O2HB 95.5 % (95.0-99.0); PCO2(98.6) 39 mmHg (35-45); PO2(98.6) 190 mmHg (60-100); SAMPLE BLOOD; SAO2 99.7 % (95.0-100.0); pH(98.6) 7.46 (7.35-7.45)
[2019-02-05 04:20] LABS: MODALITY VENTILATOR
[2019-02-05 05:33] LABS: HEMATOCRIT 31.4 % (42.0-52.0); HEMOGLOBIN 10.4 g/dL (14.0-18.0); MCH 30.3 PG (27-31); MCHC 33.1 g/dL (33-37); MCV 91.5 FL (81-99); MPV 11.7 FL (7.4-10.4); RBC 3.43 XMIL (4.7-6.1); RDW 14.4 % (11.5-14.5); WBC 22.64 X1000 (4.8-10.8)
[2019-02-05] MEDS: PROTONIX IV SCH (06:04)
[2019-02-05] MEDS: SODIUM CHLORIDE 0.9% INJ SCH (06:04)
[2019-02-05 06:11] LABS: AGAP 10; ALB/GLOB RATIO 0.6; ALBUMIN 2.1 g/dL (3.5-5.0); ALKALINE PHOSPHATASE 154 U/L (32-122); BUN 22 mg/dL (8-22); CALCIUM 8.3 mg/dL (8.8-10.2); CHLORIDE 111 mmol/L (98-107); COSMO 295; CREATININE 0.4 mg/dL (0.7-1.2); ESTIMATED GFR > 60; GLUCOSE 147 mg/dL (70-104); GOT 36 U/L (10-34); GPT 37 U/L (10-44); POTASSIUM 3.6 mmol/L (3.5-5.1); SODIUM 145 mmol/L (136-145); TCO2 24 mmol/L (25-35); TOTAL BILIRUBIN 0.97 mg/dL (0.20-1.00); TOTAL PROTEIN 5.5 g/dL (6.3-8.3)
[2019-02-05] MEDS ORDERED: LASIX IV ONE ×2 (07:03→14:00)
--- NOTE | 2019-02-05 07:28 | PROGRESS NOTE ---
DATE: 02/05/2019 SUBJECTIVE: This patient has been extubated yesterday around 4:30 p.m., he seems to be doing better. He is sleepy but arousable. He is oriented to person and place. He is following commands. He is still complaining of some shortness of breath. He is not complaining of pain. OBJECTIVE: Vital Signs: Temperature 99.6 degrees, pulse 113, respiratory rate 26, blood pressure 145/83, oxygen saturation 92 on a Venturi mask. HEENT: Head normocephalic, no trauma. PERRLA. Neck: Supple. No JVD. No masses. Central trachea. Chest: Decreased breath sounds globally, especially on the right side with rhonchi bilaterally and crepitus. Abdomen: Soft, nontender, nondistended. No hepatosplenomegaly. Extremities: 1+ lower extremity edema. No clubbing. No cyanosis. Neurological: This patient is sleepy but arousable. He is following commands. No focal weakness. He is answering some of my questions. He is oriented x2. LABORATORY DATA: WBC 22.6, hemoglobin 10.4, hematocrit 31.4, platelets 118,000. Sodium 145, potassium 3.6, chloride 111, bicarbonate 24, BUN 24, creatinine 0.4, glucose 147, calcium 8.3. AST 36, ALT 37, alkaline phosphatase 154, albumin 2.1. ASSESSMENT AND PLAN: 1. Septic shock. This is better. He is no longer on pressors. Infectious Disease Department on board. He is still having leukocytosis, he does have Klebsiella pneumoniae infection. 2. Extensive right-sided pneumonia due to Klebsiella. Continue antibiotics per Infectious Disease Department. WBC went up. 3. Pulmonary edema. He seems to have some effusion. Kidney function is good. He is getting gentle IV fluids. His urine output has been stable. He has a positive balance of 11 L. I will give him a dose of Lasix and I will monitor. 4. Hypernatremia. I will continue with D5W, the sodium level seems to be better, but still borderline high. I will keep this patient with the same management for now. 5. Acute hypoxemic respiratory failure. This patient has been extubated yesterday. I will try some ice chips today. He is breathing better. 6. Acute kidney injury, resolved. 7. Elevated liver function tests, likely secondary to shock liver and also his history of hepatitis C. 8. Hepatitis C, aware. I do not think he knows about this diagnosis. Upon admission, he told me that he had some liver problems though he does not remember what kind of problem he had. 9. Hypomagnesemia, resolved. 10. Hypophosphatemia. Has been replaced yesterday. I will continue to monitor. 11. Metabolic acidosis, likely secondary to septic shock, resolved. 12. Dehydration, resolved. 13. Diarrhea, improving. 14. Deep venous thrombosis prophylaxis with Lovenox. No signs of bleeding at this time. I will decrease the pantoprazole from twice a day to daily. 15. Nutritional status. I will start this patient on some ice chips to see how he does, also he is on Clinimix which I will continue. CRITICAL CARE TIME: 35 minutes. cc: Agapito Hunter MD
--- NOTE | 2019-02-05 07:37 | Diag Imaging Result Doc PS360 ---
EXAM: CHEST-PORTABLE INDICATION: respiratory failure TECHNIQUE: One view COMPARISON: 02/04/2019 FINDINGS: There has been interval extubation and removal of the NG tube. Diffuse interstitial and airspace consolidations bilaterally are again identified. There is slight increased density at the right lung base as compared to the previous study. However, this may be due to slightly lower lung volumes. No new consolidation is identified, otherwise. Cardiac silhouette is stable. IMPRESSION: Slight increased density at the right lung base. Essentially stable chest, otherwise. Electronically signed by Felix Gentile 02/05/2019 7:35 AM
[2019-02-05] MEDS: ROCEPHIN 1 GM in NS 50 ML IV SCH (07:40)
[2019-02-05] MEDS ORDERED: MERREM 1 GM in NS 50 ML IV SCH (08:30)
[2019-02-05] MEDS ORDERED: VANCOMYCIN IV PER PHARMACY MISC SCH (08:30)
--- NOTE | 2019-02-05 08:48 | INFECTIOUS DISEASE PROGRESS NO ---
DATE: 02/05/2019 PRESENT ILLNESS: The patient has overlying Klebsiella bacterial pneumonia. Despite treatment with Rocephin, to which the organism is susceptible, the patient's infiltrate is increasing, as is his white blood cell count. MEDICATIONS: The patient is receiving Rocephin. PHYSICAL EXAMINATION: Vital Signs: Temperature is 100 degrees, pulse 110, respirations 28, blood pressure 144/86. General: This is a chronically ill-appearing and malnourished-appearing, middle- aged male. He is intubated and sedated. Head, Eyes, Ears, Nose, and Throat: He has an orotracheal tube in place. There is no drainage from his nose or ears. Neck: No stiffness. Lungs: Clear to auscultation. Cardiovascular: Heart rate is rapid and regular. Abdomen: Soft and nontender. In the right groin, the patient has an IV catheter. The site is not swollen or draining. Thorax: The patient has an increased AP diameter of the chest. Neurologic: The patient is sedated. He did not respond to verbal stimuli. Integument: The patient has multiple tattoos. LAB AND X-RAY FINDINGS: The patient's CBC shows a white count of 22,640, hemoglobin 10.4, and platelet count 118,000. Blood gases show a pH of 7.46, a PO2 of 190, and a pCO2 of 39. Creatinine is 0.4. GFR is greater than 60. Alkaline phosphatase is 154. As mentioned above, the patient's sputum grew Klebsiella. Stool for Clostridium difficile toxin was negative. Chest x- ray shows slight increase in the patient's right-sided infiltrate. The patient has bilateral basilar infiltrates. ASSESSMENT AND PLAN: The patient has a Klebsiella pneumonia which, despite treatment with an appropriate antibiotic (namely, Rocephin), the white count continues to go up and the chest x-ray shows increased infiltrate. The plan is to stop Rocephin and place the patient on a combination of meropenem and vancomycin. I have also ordered a procalcitonin level and, finally, I have ordered blood cultures and a repeat sputum culture.. COMORBIDITIES: He has COPD and he is a cigarette smoker. cc: Alcides Mota MD
[2019-02-05] MEDS: LOVENOX SUBQ SCH (09:22)
[2019-02-05] MEDS: MERREM 1 GM in NS 50 ML IV SCH ×2 (09:22→17:04)
[2019-02-05] MEDS ORDERED: VANCOMYCIN 2 GM in NS 500 ML IV ONE (10:00)
--- NOTE | 2019-02-05 21:02 | PULMONOLOGY PROGRESS NOTE ---
DATE: 02/05/2019 SUBJECTIVE: The patient is more arousable and alert today. He does respond to his name. He has had time on and off the BiPAP, but does have oxygen desaturation. OBJECTIVE: Vital Signs: Maximum temperature in the last 24 hours is 100.1 degrees, BP 150/84, heart rate 117, respiratory rate 33, oxygen saturation 92%. HEENT: Pupils are equal and reactive. Oropharynx appears clear, but evaluation is limited with BiPAP in place. neck: Neck is supple. chest: Chest reveals decreased breath sounds right base. Cardiac: Increased rate, regular rhythm. abdomen: Abdomen is soft with diminished bowel sounds. Extremities: Extremities reveal trace edema. STUDIES AND LABORATORIES: Chest x-ray reveals increased vascular markings along with increased density in right greater than left base. White blood count 22,000, hemoglobin 10.4, platelet count 118,000. Chemistry: Sodium 145, potassium 3.6, chloride 111, bicarbonate 24, BUN 22, creatinine 0.4, glucose 147. Arterial blood gas: pH 7.46, pCO2 of 39, pO2 of 190. IMPRESSION: A 63-year-old with: 1. Klebsiella pneumonia. 2. Acute hypoxemic respiratory failure. 3. Pleural effusion. 4. Severe sepsis with septic shock on presentation. 5. Protein calorie malnutrition. 6. Resolving encephalopathy. PLAN: 1. Continue to cycle BiPAP as needed for respiratory failure. 2. Continue antibiotic regimen. This has been changed by Dr. Alcides Mota. 3. Continue free water, but attempt diuresis. TIME SPENT IN CRITICAL CARE MANAGEMENT: 30+ minutes. cc: Curtis Albrecht MD
[2019-02-05] MEDS: VANCOMYCIN 1,550 MG in NS 250 ML IV SCH (21:14)
[2019-02-06] MEDS: MERREM 1 GM in NS 50 ML IV SCH ×3 (00:40→16:29)
[2019-02-06] MEDS: D5W 1,000 ML IV SCH ×2 (00:59→19:46)
[2019-02-06] MEDS ORDERED: LASIX IV ONE ×2 (03:00→06:04)
[2019-02-06] MEDS: XOPENEX NEB INH SCH ×6 (03:33→23:24)
[2019-02-06] MEDS: ATROVENT NEB INH SCH ×6 (03:34→23:24)
[2019-02-06 04:34] LABS: ALLEN TEST YES; BLOOD TYPE ARTERIAL; HCO3-(ACT) 33.3 mmoll (20.0-26.0); METHB 2.1 % (0.0-1.5); O2(CT) 14.3 mL/dL (15.0-23.0); PCO2(98.6) 38 mmHg (35-45); SAMPLE BLOOD; SAO2 90.6 % (95.0-100.0); THB 11.7 g/dL (11.5-17.4)
[2019-02-06 04:36] LABS: MODALITY BI PAP; pH(98.6) 7.56 (7.35-7.45)
[2019-02-06 04:37] LABS: O2HB 87.1 % (95.0-99.0); PO2(98.6) 49 mmHg (60-100)
[2019-02-06] MEDS ORDERED: DIAMOX IV ONE (06:03)
[2019-02-06] MEDS: PROTONIX IV SCH (06:17)
[2019-02-06] MEDS: SODIUM CHLORIDE 0.9% INJ SCH (06:18)
[2019-02-06 06:30] LABS: MAGNESIUM 1.7 mg/dL (1.5-2.7); PHOSPHORUS 2.4 mg/dL (2.7-4.5)
[2019-02-06] MEDS ORDERED: STERILE WATER INJ. ONE (06:33)
[2019-02-06 06:39] LABS: AGAP 15; ALB/GLOB RATIO 0.6; ALBUMIN 2.4 g/dL (3.5-5.0); ALKALINE PHOSPHATASE 109 U/L (32-122); BUN 24 mg/dL (8-22); CALCIUM 8.5 mg/dL (8.8-10.2); CHLORIDE 102 mmol/L (98-107); COSMO 295; CREATININE 0.5 mg/dL (0.7-1.2); ESTIMATED GFR > 60; GLUCOSE 133 mg/dL (70-104); GOT 33 U/L (10-34); GPT 31 U/L (10-44); POTASSIUM 3.3 mmol/L (3.5-5.1); SODIUM 145 mmol/L (136-145); TCO2 28 mmol/L (25-35); TOTAL BILIRUBIN 1.53 mg/dL (0.20-1.00); TOTAL PROTEIN 6.1 g/dL (6.3-8.3)
--- NOTE | 2019-02-06 07:17 | Diag Imaging Result Doc PS360 ---
EXAM: CHEST-PORTABLE 02/06/2019 HISTORY: respiratory failure TECHNIQUE: AP portable at 0544 COMMENT: There is diffuse alveolar opacity bilaterally worst in the right upper and lower lobes. The heart size and pulmonary vascularity appear to be within normal limits. Compared to 02/05/2019 the hemidiaphragms are slightly better defined currently. IMPRESSION: Minimally improved ARDS. Electronically signed by Perry Richey 02/06/2019 7:15 AM
[2019-02-06 07:40] LABS: BLOOD TYPE ARTERIAL; SAMPLE BLOOD
[2019-02-06 07:41] LABS: ALLEN TEST YES; BE 12.1 mmoll (-3.0-3.0); HCO3-(ACT) 34.2 mmoll (20.0-26.0); METHB 2.2 % (0.0-1.5); MODALITY BI PAP; O2HB 92.6 % (95.0-99.0); PCO2(98.6) 42 mmHg (35-45); PO2(98.6) 70 mmHg (60-100); SAO2 96.6 % (95.0-100.0); THB 13.8 g/dL (11.5-17.4); pH(98.6) 7.54 (7.35-7.45)
[2019-02-06] MEDS ORDERED: POTASSIUM PHOSPHATE 15 MMOL in NS 250 ML IV ONE (07:49)
--- NOTE | 2019-02-06 07:52 | INFECTIOUS DISEASE PROGRESS NO ---
DATE: 02/06/2019 PRESENT ILLNESS: The patient has an overwhelming pneumonia, which I think could be due to Klebsiella, although despite receiving antibiotics to which the Klebsiella was susceptible, the patient did not get any better and I had to change his antibiotics. MEDICATIONS: The patient was receiving Rocephin, and yesterday I changed him to a combination of meropenem and vancomycin. PHYSICAL EXAMINATION: Vital Signs: Temperature is 98 degrees, pulse 110, respirations 36, blood pressure 149/75. General: This is a chronically ill and malnourished- appearing, middle-aged male. He is wearing a BiPAP mask today. HEENT: As mentioned above, the patient has a BiPAP mask in place. There is no drainage from the nose or ears. Neck: No pain with movement of the neck. Lungs: There were scattered rhonchi. Cardiovascular: Heart rate is irregular. Abdomen: Soft and not tender. Thorax: The patient has an increased AP diameter of the chest. Neurologic: The patient is awake today. He is trying to talk, but it is difficult to understand him because he has a BiPAP mask on. IMAGING AND LABORATORY DATA: The patient's chest x-ray shows improvement in the patient's opacities. The patient's creatinine is 0.5. GFR is greater than 60. Liver function studies are normal. Arterial blood gas study shows a pH of 7.56, a PO2 of 49, and a pCO2 of 38. A CBC is not present at this time. ASSESSMENT AND PLAN: The patient has pneumonia, which appears to be getting better since the change in antibiotics. I plan to continue with meropenem and vancomycin. This is day 1 of treatment with both those agents. I have ordered a CBC for tomorrow to see if the patient's white count is also coming down. The patient had a procalcitonin drawn yesterday, the results of which are pending, as are the patient's blood culture results and sputum culture. COMORBIDITY: Cigarette smoking and chronic obstructive pulmonary disease. cc: MD ISH Coleman
--- NOTE | 2019-02-06 08:19 | PROGRESS NOTE ---
DATE: 02/06/2019 SUBJECTIVE: This patient is still resting in bed, but he seems to be short of breath. He has been using the BiPAP machine. His pH was 7.56, and the PO2 was low at 49 with low oxyhemoglobin. The pCO2 was 38, and the bicarb level was 33.3. He received some treatment with Lasix, and also he has received a dose of Acetazolamide. The ABGs have been repeated and they look a little bit better. He is no longer hypoxemic, but his BiPAP is at 100% FiO2. There is a high possibility of re-intubation for this patient. OBJECTIVE: Vital Signs: Temperature 98.2 degrees, pulse 110, respiratory rate 36, blood pressure 149/75, and oxygen saturation 98 on the BiPAP machine. HEENT: Head normocephalic. No trauma. PERRLA. Neck: Supple. No JVD. No masses. Central trachea. Chest: Decreased breath sounds globally, but with coarse breath sounds mostly at the bases, better compared with previous days. Abdomen: Soft, nontender, and nondistended. No hepatosplenomegaly. Extremities: 1+ lower extremity edema. No clubbing. No cyanosis. Neurological: The patient is awake and alert. He is following commands. He moves all 4 extremities spontaneously. LABORATORY: Sodium 145, potassium 3.3, chloride 102, bicarbonate 28, BUN 24, creatinine 0.5 glucose 133, calcium 8.5, phosphorus 2.4, AST 33, ALT 31, alkaline phosphatase 109, and albumin 2.4. ASSESSMENT AND PLAN: 1. Septic shock, resolved. He is no longer on pressors. Continue with antibiotics. He does have pneumonia due to Klebsiella. 2. Extensive right-sided pneumonia due to Klebsiella. Continue antibiotics per Infectious Disease Department. Pending CBC today. 3. Pulmonary edema, he is having good urine output. He has been getting Lasix. We will continue with same management for now. 4. Hypernatremia. He is still borderline high hypernatremic. He will continue with same management for now. 5. Hypophosphatemia with hypokalemia. I will replace both. 6. Acute hypoxemic respiratory failure. This patient has been extubated a couple days ago but, there is a high chance of re-intubation. Probably, he is not tolerating too good the BiPAP machine. 7. Acute kidney injury resolved. 8. Elevated LFTs likely secondary to shock liver and history of hepatitis C. These LFTs are much better. 9. Hepatitis C aware. Probably, this patient does not know about this diagnosis, but he knows he has some liver problems. 10. Hypomagnesemia resolved. 11. Metabolic acidosis, likely secondary to septic shock, resolved. 12. Dehydration, resolved. Diarrhea is better. 13. Deep venous thrombosis prophylaxis with Lovenox. 14. Nutritional status. Continue with same management for now. He is on Clinimix. If he is reintubated, we need to start this patient on a feeding tube. CRITICAL CARE TIME: 35 minutes. cc: Agapito Hunter MD
[2019-02-06] MEDS: LOVENOX SUBQ SCH (08:26)
[2019-02-06 08:57] LABS: HEMATOCRIT 35.7 % (42.0-52.0); MCH 31.4 PG (27-31); MCHC 33.6 g/dL (33-37); MCV 93.5 FL (81-99); MPV 12.1 FL (7.4-10.4); RBC 3.82 XMIL (4.7-6.1); RDW 14.4 % (11.5-14.5); WBC 29.57 X1000 (4.8-10.8)
[2019-02-06] MEDS: VANCOMYCIN 1,550 MG in NS 250 ML IV SCH ×2 (10:54→21:37)
[2019-02-06] MEDS: CLINIMIX E 4.25%-5% SOLUTION 1,000 ML IV SCH (19:46)
[2019-02-07] MEDS: MERREM 1 GM in NS 50 ML IV SCH ×3 (00:53→15:46)
[2019-02-07] MEDS ORDERED: LASIX IV ONE ×2 (02:00→20:20)
[2019-02-07] MEDS: ATROVENT NEB INH SCH ×6 (03:10→23:24)
[2019-02-07] MEDS: XOPENEX NEB INH SCH ×6 (03:10→23:24)
[2019-02-07 04:55] LABS: ALLEN TEST YES; BE 7.9 mmoll (-3.0-3.0); BLOOD TYPE ARTERIAL; METHB 1.9 % (0.0-1.5); O2(CT) 15.5 mL/dL (15.0-23.0); O2HB 93.3 % (95.0-99.0); PCO2(98.6) 36 mmHg (35-45); PO2(98.6) 70 mmHg (60-100); SAMPLE BLOOD; SAO2 97.1 % (95.0-100.0); THB 11.8 g/dL (11.5-17.4); pH(98.6) 7.54 (7.35-7.45)
[2019-02-07 05:39] LABS: BASO# 0.02 X1000 (0.0-0.2); BASO% 0.1 % (0.0-0.8); EOS# 0.03 X1000 (0.0-0.7); EOS% 0.1 % (0.0-10.0); HEMATOCRIT 33.7 % (42.0-52.0); HEMOGLOBIN 11.2 g/dL (14.0-18.0); IMM GRAN# 0.28 X1000 (0.0-0.04); IMM GRAN% 0.9 % (0.0-0.5); LYMPH# 1.04 X1000 (1.2-3.4); LYMPH% 3.5 % (20.5-51.1); MCH 30.4 PG (27-31); MCHC 33.2 g/dL (33-37); MCV 91.3 FL (81-99); MONO# 1.06 X1000 (0.11-0.59); MONO% 3.5 % (1.7-9.3); MPV 11.7 FL (7.4-10.4); NEUT# 27.69 X1000 (1.4-6.5); NEUT% 91.9 % (42.2-75.2); PLT 215 X1000 (130-400); RBC 3.69 XMIL (4.7-6.1); RDW 14.4 % (11.5-14.5); WBC 30.12 X1000 (4.8-10.8)
[2019-02-07 05:48] LABS: LYMPHS 2 % (21-51)
[2019-02-07 05:55] LABS: MONO 6 % (1-9); SEGS 92 % (42-75)
[2019-02-07 06:00] LABS: AGAP 12; ALB/GLOB RATIO 0.6; ALBUMIN 2.4 g/dL (3.5-5.0); ALKALINE PHOSPHATASE 123 U/L (32-122); BUN 23 mg/dL (8-22); CALCIUM 8.7 mg/dL (8.8-10.2); CHLORIDE 103 mmol/L (98-107); COSMO 289; CREATININE 0.4 mg/dL (0.7-1.2); ESTIMATED GFR > 60; GLUCOSE 133 mg/dL (70-104); GOT 37 U/L (10-34); GPT 28 U/L (10-44); SODIUM 142 mmol/L (136-145); TCO2 27 mmol/L (25-35); TOTAL BILIRUBIN 1.66 mg/dL (0.20-1.00); TOTAL PROTEIN 6.1 g/dL (6.3-8.3)
[2019-02-07 06:09] LABS: MODALITY BI PAP
[2019-02-07] MEDS ORDERED: POTASSIUM CHLORIDE 40 MEQ/SWI 40 MEQ/100 ML IVPB IV ONE (06:33)
--- NOTE | 2019-02-07 06:34 | PULMONOLOGY PROGRESS NOTE ---
DATE: 02/06/2019 SUBJECTIVE: The patient is on the BiPAP. He does communicate without difficulty. He does not appear to be in any distress. OBJECTIVE: Vital Signs: Maximum temperature in the last 24 hours 100.1 degrees, BP 153/91, heart rate 101, respiratory rate 27, oxygen saturation 100% on BiPAP. HEENT: Pupils are equal and reactive. Oropharynx appears clear. Neck: Supple. Chest: Reveals diffuse crackles, right greater than left base. Cardiac exam: S1, S2. Abdomen: Soft without hepatosplenomegaly. Extremities: Without edema. LABORATORIES: White blood count 29,000, hemoglobin 12.0, platelet count 197,000. Sodium 145, potassium 3.3, chloride 102, bicarbonate 24, BUN 0.5, glucose 133. Arterial blood gas #1: pH 7.56, pCO2 of 38, pO2 of 49. Arterial blood gas 3 hours later: pH 7.54, pCO2 of 42, pO2 of 70. IMAGING: Chest x-ray reveals slight decrease in consolidation on the right with decreased pulmonary congestion on the left. IMPRESSION: A 63-year-old with: 1. Klebsiella pneumonia. 2. Acute hypoxemic respiratory failure. 3. Resolving pleural effusions. 4. Protein calorie malnutrition. 5. Encephalopathy, which is resolving. DISCUSSION: A 63-year-old with problems outlined above. He remains critically ill and is marginal on his BiPAP but does appear to be improving. He will need continued ICU monitoring. PLAN: 1. Continue to cycle BiPAP as needed. 2. Continue ICU monitoring. He is at risk for re-intubation. 3. Continue current antibiotics per Infectious Disease. cc: Curtis Albrecht MD
[2019-02-07 06:37] LABS: MAGNESIUM 1.7 mg/dL (1.5-2.7); PHOSPHORUS 2.7 mg/dL (2.7-4.5)
--- NOTE | 2019-02-07 06:42 | Diag Imaging Result Doc PS360 ---
CHEST-PORTABLE - 02/07/2019 INDICATION: respiratory failure COMPARISON: 02/06/2019 FINDINGS: There are stable diffuse bilateral coarse interstitial infiltrates. Heart size is normal. There are small bilateral pleural effusions. Lungs are hyperexpanded compatible with COPD. IMPRESSION: No change from prior. Diffuse bilateral pulmonary edema superimposed on COPD. Small bilateral pleural effusions. Electronically signed by Jan Jesus 02/07/2019 6:40 AM
[2019-02-07] MEDS: PROTONIX IV SCH (07:10)
--- NOTE | 2019-02-07 07:28 | INFECTIOUS DISEASE PROGRESS NO ---
DATE: 02/07/2019 PRESENT ILLNESS: The patient has an overlying pneumonia, and there could also be a component of pulmonary venous congestion. MEDICATIONS: This is day 2 of treatment with a combination of vancomycin and meropenem. PHYSICAL EXAMINATION: Vital Signs: Temperature is 100.4 degrees, pulse 105, respirations 23, blood pressure 153/69. General: This is an ill-appearing middle-aged male. He is wearing a BiPAP mask. He is in no acute distress. Head, Eyes, Ears, Nose, and Throat: As mentioned above, the patient is wearing a BiPAP mask. There is no drainage from the nose or ears. I did not see any white patches in his mouth. Neck: No pain with movement of his neck. Lungs: Clear to auscultation. Cardiovascular: Heart rate is regular. Abdomen: Soft and nontender. Neurologic: The patient is awake. He can move his extremities. There is no tremor. Skin: Multiple tattoos. LAB AND RADIOLOGY: Chest x-ray shows bilateral pulmonary congestion. Procalcitonin levels present. Creatinine 0.4, GFR is greater than 60, alkaline phosphatase is 123. The patient's CBC shows a white count of 30,120, hemoglobin 11.2, and platelet count 215,000. Blood gases show a pH of 7.54, PO2 of 70, and a pCO2 of 36. ASSESSMENT AND PLAN: The patient could have pulmonary venous congestion with an underlying bacterial pneumonia. I plan to continue with meropenem and vancomycin. This is day 2 of treatment with both of those agents. COMORBIDITIES: The patient is a cigarette smoker, and he has chronic obstructive pulmonary disease. cc: MD ISH Coleman
--- NOTE | 2019-02-07 07:54 | PROGRESS NOTE ---
DATE: 02/07/2019 SUBJECTIVE: This patient is resting in bed. He seems to be doing better today compared with yesterday. He is still using the BiPAP machine. For the past day we have a negative balance of 2.2 L, yesterday 3.5 L. X-ray still shows bilateral pulmonary edema superimposed on COPD and small bilateral pleural effusions. PHYSICAL EXAMINATION: Vital Signs: Temperature 99.8 degrees, pulse 105, respiratory rate 23, blood pressure 153/69, oxygen saturation 98 on the BiPAP machine. HEENT: Head normocephalic, no trauma. PERRLA. Neck: Is supple. No JVD. No masses. Central trachea. Chest: Decreased breath sounds globally with coarse breath sounds mostly at the bases, but better compared with previous days. Abdomen: Soft, nontender, nondistended. No hepatosplenomegaly. Extremities: Trace to 1+ lower extremity edema. No clubbing. No cyanosis. Neurological: The patient is awake, he is alert, he is following commands. He moves all 4 extremities spontaneously. LABORATORY: WBC 30.1, hemoglobin 11.2, hematocrit 33.7, platelet 215,000. Sodium 142, potassium 3, chloride 103, bicarbonate 27, BUN 23, creatinine 0.4, glucose 133, calcium 8.7, AST 37, ALT 28, alkaline phosphatase 123, albumin 2.4. ASSESSMENT AND PLAN: 1. Septic shock, resolved. He is no longer on pressors. Continue with antibiotics. He does have pneumonia due to Klebsiella. 2. Extensive right-sided pneumonia due to Klebsiella. Continue with antibiotics per Infectious Disease Department. His white blood cell count is trending up. 3. Pulmonary edema. He has been having good urine output. We have been giving him some Lasix. We will continue with the same management for now. 4. Hyponatremia, this is getting better. I have placed this patient on D5W for the past few days and also he is on Clinimix. His sodium level seems to be getting better. He has been borderline high for the past days. I will keep the D5W for 1 more day and I will reevaluate tomorrow. 5. Hypophosphatemia with hypokalemia, potassium level is low and I will replace it. Phosphorus level normalized. 6. Acute kidney injury resolved. 7. Acute hypoxemic respiratory failure. This patient has been extubated 3 days ago. He is still using the BiPAP machine. There is a possibility of re-intubation, but I think he is getting better. 8. Elevated LFTs likely secondary to shock liver and history of hepatitis C. 9. Hepatitis C. I do not think this patient knows about this diagnosis. He told me upon admission that he had some kind of liver problems, but he was not sure about it. 10. Hypomagnesemia resolved. 11. Metabolic acidosis, likely secondary to septic shock, resolved. 12. Dehydration resolved. 13. Diarrhea better. 14. Deep vein thrombosis prophylaxis with Lovenox. 15. Nutritional status. He is on Clinimix. We have placed this patient on a diet. It is really hard for him to tolerate p.o. right now because he is on the BiPAP machine and he desaturates without it. cc: Agapito Hunter MD
[2019-02-07] MEDS: LOVENOX SUBQ SCH (08:36)
[2019-02-07] MEDS: VANCOMYCIN 1,550 MG in NS 250 ML IV SCH (11:34)
[2019-02-07] MEDS: D5W 1,000 ML IV SCH (15:40)
[2019-02-07] MEDS: CLINIMIX E 4.25%-5% SOLUTION 1,000 ML IV SCH (15:46)
--- NOTE | 2019-02-07 20:54 | PULMONOLOGY PROGRESS NOTE ---
DATE: 02/07/2019 SUBJECTIVE: The patient is awake and alert. He currently is on a non-rebreather. He has no increased work of breathing. He has a marginal cough effort. OBJECTIVE: Vital Signs: Maximum temperature in the last 24 hours is 99.8 degrees. Blood pressure 141/72. Heart rate 94. Respiratory rate 23. Oxygen saturation 97%. HEENT: Pupils are equal and reactive. Oropharynx appears clear. neck: Neck is supple Chest: Reveals diffuse rhonchi bilaterally Cardiac: Increased rate. Regular rhythm. abdomen: Abdomen is soft without hepatosplenomegaly. Extremities: Extremities are without edema. LABORATORIES: Sodium 142, potassium 3.0, chloride 103, bicarbonate 27, BUN 23, creatinine 0.4, glucose 133. White blood count 30,000, hemoglobin 11.2, platelet count 215,000. Arterial blood gas reveals a pH 7.54, pCO2 of 36, pO2 of 70. STUDIES: Chest x-ray reveals bilateral pulmonary infiltrates, right greater than left. His chest x-ray is similar to yesterday or slightly improved. IMPRESSION: A 63-year-old with: 1. Klebsiella pneumonia. 2. Acute hypoxemic respiratory failure. 3. Protein-calorie malnutrition. PLAN: 1. Continue to balance intake and output if tolerated. 2. Continue to cycle BiPAP p.r.n. 3. Continue antibiotics per Infectious Disease. 4. Continue ICU monitoring. The patient continues to require high oxygen concentrations to maintain saturation greater than 90% and is not yet a candidate for the floor. cc: Curtis Albrecht MD
[2019-02-08] MEDS: VANCOMYCIN 1,550 MG in NS 250 ML IV SCH ×2 (00:27→11:32)
[2019-02-08] MEDS: MERREM 1 GM in NS 50 ML IV SCH ×3 (01:02→15:30)
[2019-02-08] MEDS ORDERED: HALDOL IM ONE (01:30)
[2019-02-08] MEDS ORDERED: HALDOL IV ONE (01:30)
[2019-02-08] MEDS: ATROVENT NEB INH SCH ×6 (02:57→23:35)
[2019-02-08] MEDS: XOPENEX NEB INH SCH ×6 (02:57→23:35)
[2019-02-08 05:12] LABS: ALLEN TEST YES; BE 10.5 mmoll (-3.0-3.0); BLOOD TYPE ARTERIAL; METHB 2.1 % (0.0-1.5); O2(CT) 11.2 mL/dL (15.0-23.0); O2HB 91.3 % (95.0-99.0); PCO2(98.6) 42 mmHg (35-45); PO2(98.6) 55 mmHg (60-100); SAMPLE BLOOD; SAO2 95.5 % (95.0-100.0); THB 8.7 g/dL (11.5-17.4); pH(98.6) 7.52 (7.35-7.45)
[2019-02-08 05:15] LABS: MODALITY BI PAP
[2019-02-08 05:22] LABS: HEMATOCRIT 31.8 % (42.0-52.0); HEMOGLOBIN 10.8 g/dL (14.0-18.0); MCH 31.5 PG (27-31); MCV 92.7 FL (81-99); MPV 12.1 FL (7.4-10.4); RBC 3.43 XMIL (4.7-6.1); RDW 14.9 % (11.5-14.5); WBC 19.86 X1000 (4.8-10.8)
[2019-02-08 05:38] LABS: AGAP 10; ALB/GLOB RATIO 0.6; ALKALINE PHOSPHATASE 98 U/L (32-122); BUN 22 mg/dL (8-22); CALCIUM 8.5 mg/dL (8.8-10.2); CHLORIDE 103 mmol/L (98-107); COSMO 292; CREATININE 0.4 mg/dL (0.7-1.2); ESTIMATED GFR > 60; GLUCOSE 126 mg/dL (70-104); GOT 37 U/L (10-34); GPT 25 U/L (10-44); POTASSIUM 3.3 mmol/L (3.5-5.1); SODIUM 144 mmol/L (136-145); TCO2 31 mmol/L (25-35); TOTAL BILIRUBIN 1.48 mg/dL (0.20-1.00); TOTAL PROTEIN 5.6 g/dL (6.3-8.3)
[2019-02-08 06:01] LABS: MAGNESIUM 1.7 mg/dL (1.5-2.7); PHOSPHORUS 2.6 mg/dL (2.7-4.5)
[2019-02-08] MEDS: PROTONIX IV SCH (06:44)
[2019-02-08] MEDS: SODIUM CHLORIDE 0.9% INJ SCH (06:44)
--- NOTE | 2019-02-08 06:58 | Diag Imaging Result Doc PS360 ---
EXAM: CHEST-PORTABLE HISTORY: respiratory failure TECHNIQUE: Chest single view COMPARISON: 02/07/2019 FINDINGS: There are dense bilateral infiltrates similar to the prior exam. There is also a small right pleural effusion. No cardiomegaly. IMPRESSION: No improvement in the dense bilateral infiltrates. Electronically signed by Ken Zaragoza 02/08/2019 6:57 AM
[2019-02-08] MEDS ORDERED: POTASSIUM CHLORIDE 40 MEQ/SWI 40 MEQ/100 ML IVPB IV ONE (08:38)
--- NOTE | 2019-02-08 08:46 | INFECTIOUS DISEASE PROGRESS NO ---
DATE: 02/08/2019 PRESENT ILLNESS: The patient has an overwhelming pneumonia. It could be due to Klebsiella, or possibly another antibiotic or possibly a combination of Klebsiella and another antibiotic. MEDICATIONS: The patient has been now receiving meropenem and vancomycin for the past 3 days. PHYSICAL EXAMINATION: Vital Signs: Temperature is 98 degrees, pulse 94, respirations 22, and blood pressure 136/68. General: This is a chronically ill appearing, middle-aged male. He is still has his BiPAP mask on today. Head, Eyes, Ears, Nose and Throat: As mentioned above, the patient has a BiPAP mask on. I can't really get a good look at his mouth. His nose and ears are draining. Neck: No pain with movement. Lungs: Bilateral rhonchi. Cardiovascular: Heart rate is regular. Abdomen: Firm but not tender. Thorax: The patient has an increased AP diameter of the chest. Neurologic: The patient is awake today. He did move his extremities to request. There is no tremor. LABORATORY AND X-RAY: Chest x-ray shows continued bilateral dense infiltrates. Procalcitonin is 6.4. Liver function studies normal except for a bilirubin of 1.48. Creatinine is 0.4. GFR is greater than 60. Blood gases show a pH 7.52, PO2 of 55, and pCO2 of 42. [place] [address], hemoglobin 10.8, and platelet count 194,000. ASSESSMENT AND PLAN: Patient has pneumonia. My plan is to continue the current antibiotics. This is day 3 of the meropenem and vancomycin. I plan the first of the week to get a CBC, BMP, and chest x-ray. COMORBIDITIES: The patient smokes cigarettes, and he has chronic obstructive pulmonary disease. cc: Alcides Mota MD
[2019-02-08] MEDS: LOVENOX SUBQ SCH (09:17)
[2019-02-08] MEDS: CLINIMIX E 4.25%-5% SOLUTION 1,000 ML IV SCH (11:06)
[2019-02-08] MEDS: D5W 1,000 ML IV SCH (11:07)
--- NOTE | 2019-02-08 14:56 | PROGRESS NOTE ---
DATE: 02/08/2019 INTERVAL HISTORY: The patient is off BiPAP but still requiring high levels of oxygen to maintain saturations. Symptomatically somewhat improved. Remains off pressors. Some minimally elevated temps but no aysha fevers overnight. No other acute events. No new complaints. Consider possible transfer to the floor but given his high oxygen requirements pulmonology wishes to continue to monitor him in the ICU. REVIEW OF SYSTEMS: A 12 point review of systems is negative except as per the interval history. LABS: WBC is 19.8, hemoglobin 10.8, hematocrit 31.8, and platelets 194. ABG with pH of 7.5, pCO2 of 42, and pO2 of 55 on 80% FiO2. Sodium is 144, potassium 3.3, BUN 22, creatinine 0.4, glucose 126, and bilirubin 1.48. BNP is 4239. IMAGING: Chest x-ray with stable bilateral infiltrates and small right pleural effusion. VITAL SIGNS: T-max is 99.9, pulse 97, respirations 23, blood pressure 135/72, and O2 saturation 97% on nonrebreather. PHYSICAL EXAMINATION: General: No acute distress. Vital Signs: As above. HEENT: Normocephalic, atraumatic. Moist mucous membranes. No cervical adenopathy. Cardiovascular: Regular rate and rhythm. No murmurs noted. Pulmonary: Moderately decreased breath sounds throughout. Coarse breath sounds throughout. Scattered rhonchi, right greater than left. Abdomen: Soft, nontender, and nondistended. Bowel sounds are positive. Extremities: Peripheral pulses are intact. No clubbing or cyanosis. Trace bilateral lower extremity edema. Neurologic: Cranial nerves are grossly intact. No focal deficits identified. Psychiatric: Normal mood and affect. Awake, alert, and oriented times 3. Skin: No new rashes or lesions identified. ASSESSMENT AND PLAN: 1. Septic shock secondary to pneumonia. No longer on pressors. Continue antibiotics as below. 2. Pneumonia due to klebsiella. On antibiotics with vancomycin and meropenem. Blood cultures negative times 2. Sputum cultures are growing klebsiella resistant only to ampicillin. Continue antibiotics as directed by Infectious Disease. Continue oxygenation as required. Still on nonrebreather currently but it looks like he may have some room to wean oxygen down. 3. Acute kidney injury, resolved with treatment of acute illness. 4. Acute hypoxic respiratory failure secondary to pneumonia as above. Continue antibiotics and monitor. 5. Transaminitis, likely a combination of chronic hepatitis C and shock liver. Bilirubin is still slightly elevated but overall improved. 6. Hyponatremia, hypophosphatemia, hypokalemia, and hypomagnesemia. Potassium is still a little low but otherwise other electrolytes are improved. We will gently replete and monitor. 7. Nutritional status. The patient has been on Clinimix. Getting a swallow screen currently. Now that he is off BiPAP and if he does well with that we will go ahead and place him on diet and let him eat. He if does well with a diet then we can likely discontinue Clinimix in the next day or two.
[2019-02-09] MEDS: MERREM 1 GM in NS 50 ML IV SCH ×3 (00:50→17:31)
[2019-02-09] MEDS: VANCOMYCIN 1,550 MG in NS 250 ML IV SCH ×2 (00:50→12:05)
[2019-02-09] MEDS: XOPENEX NEB INH SCH ×6 (03:38→23:35)
[2019-02-09] MEDS: ATROVENT NEB INH SCH ×6 (03:38→23:35)
[2019-02-09 05:04] LABS: ALLEN TEST YES; BE 9.6 mmoll (-3.0-3.0); BLOOD TYPE ARTERIAL; HCO3-(ACT) 32.3 mmoll (20.0-26.0); METHB 1.8 % (0.0-1.5); O2(CT) 13.4 mL/dL (15.0-23.0); O2HB 90.3 % (95.0-99.0); PCO2(98.6) 42 mmHg (35-45); PO2(98.6) 58 mmHg (60-100); SAMPLE BLOOD; THB 10.5 g/dL (11.5-17.4); pH(98.6) 7.51 (7.35-7.45)
[2019-02-09 05:06] LABS: MODALITY BI PAP
[2019-02-09] MEDS: PROTONIX IV SCH ×2 (05:08→06:18)
[2019-02-09] MEDS: CLINIMIX E 4.25%-5% SOLUTION 1,000 ML IV SCH (05:08)
[2019-02-09] MEDS: D5W 1,000 ML IV SCH ×3 (05:08→21:49)
[2019-02-09 06:35] LABS: HEMATOCRIT 32.1 % (42.0-52.0); HEMOGLOBIN 10.4 g/dL (14.0-18.0); MCH 30.9 PG (27-31); MCHC 32.4 g/dL (33-37); MCV 95.3 FL (81-99); MPV 12.7 FL (7.4-10.4); RBC 3.37 XMIL (4.7-6.1); RDW 15.4 % (11.5-14.5); WBC 17.49 X1000 (4.8-10.8)
[2019-02-09 07:17] LABS: AGAP 9; ALB/GLOB RATIO 0.5; ALBUMIN 1.7 g/dL (3.5-5.0); ALKALINE PHOSPHATASE 92 U/L (32-122); BUN 20 mg/dL (8-22); CALCIUM 7.4 mg/dL (8.8-10.2); CHLORIDE 102 mmol/L (98-107); COSMO 278; CREATININE 0.4 mg/dL (0.7-1.2); ESTIMATED GFR > 60; GLUCOSE 98 mg/dL (70-104); GOT 52 U/L (10-34); GPT 28 U/L (10-44); SODIUM 138 mmol/L (136-145); TCO2 27 mmol/L (25-35); TOTAL BILIRUBIN 1.53 mg/dL (0.20-1.00); TOTAL PROTEIN 5.4 g/dL (6.3-8.3)
--- NOTE | 2019-02-09 07:21 | Diag Imaging Result Doc PS360 ---
EXAM: CHEST-PORTABLE 02/09/2019 HISTORY: respiratory failure TECHNIQUE: AP portable at 0528 COMMENT: There is diffuse alveolar and interstitial opacity bilaterally. There is a right and smaller left pleural effusion. Compared to 02/08/2019 there has been no appreciable change. IMPRESSION: Pulmonary edema and/or pneumonia with right pleural effusion. Electronically signed by Perry Richey 02/09/2019 7:19 AM
[2019-02-09] MEDS: LOVENOX SUBQ SCH (09:24)
[2019-02-09] MEDS ORDERED: LASIX IV ONE (09:37)
--- NOTE | 2019-02-09 14:22 | PROGRESS NOTE ---
DATE: 02/09/2019 INTERVAL HISTORY: The patient remains off pressors with stable blood pressure, but continues to require high levels of oxygen. Has been off on and off BiPAP. Little improvement in oxygenation thus far. Remains afebrile. No acute events overnight. No new complaints. REVIEW OF SYSTEMS: Twelve point review of systems negative except as per interval history. LABS: WBC 17.4, hemoglobin 10.4, hematocrit 32.1, platelets 217,000. ABG with pH 7.5, pCO2 42, PO2 58 on 80% FiO2 at that time with BiPAP. Sodium 138, potassium 4.0, BUN 20, creatinine 0.4, calcium 7.4, bilirubin 1.5, AST 52, ALT 28. BNP 2300. IMAGING: Chest x-ray essentially stable from previous. VITAL SIGNS: T-max 99.6 degrees, pulse 92, respirations 26, blood pressure 139/76, O2 saturation 97% on nonrebreather. Earlier during my exam was saturating 87% on nonrebreather. PHYSICAL EXAM: General: No acute distress. Vital signs: As above. HEENT: Normocephalic, atraumatic. Moist mucous membranes. Neck: Supple. Cardiovascular: Regular rate and rhythm. No murmurs noted. Pulmonary: Course with rhonchi pretty diffusely which are essentially unchanged from previous. Abdomen: Soft, nontender, nondistended. Bowel sounds positive. Extremities: Peripheral pulses intact. No clubbing, cyanosis, edema. Neurologic: Cranial nerves grossly intact. No focal deficits identified. Psychiatric: Normal mood and affect. Awake, alert, oriented x3. Skin: No new rashes or lesions seen. ASSESSMENT AND PLAN: 1. Septic shock secondary to pneumonia. Shock now resolved. Blood pressure remains good off of pressors. Treatment as below. 2. Pneumonia due to Klebsiella, acute hypoxic respiratory failure. The patient remains on antibiotics with vancomycin and meropenem. Blood cultures negative x2. Sputum cultures growing Klebsiella resistant only to ampicillin. The patient's leukocytosis improving slowly. Blood pressure improved as above, but progress in respiratory status has been quite slow. Will continue antibiotics and monitor closely. 3. Acute kidney injury, resolved with treatment of acute illness. 4. Transaminitis, likely combination of chronic hepatitis C and shock liver. Improved overall. Still mildly elevated bilirubin. 5. Hyponatremia, hypophosphatemia, hypokalemia, hypomagnesemia, essentially all improved with repletion on last check. Continue to monitor. 6. Nutrition. The patient did okay with swallow screen yesterday, now on pureed diet and appears to be tolerating whenever he can be kept off BiPAP for long enough to eat.
[2019-02-10] MEDS: MERREM 1 GM in NS 50 ML IV SCH ×3 (00:45→16:09)
[2019-02-10] MEDS: VANCOMYCIN 1,550 MG in NS 250 ML IV SCH ×2 (00:46→12:36)
[2019-02-10] MEDS: XOPENEX NEB INH SCH ×6 (03:29→23:37)
[2019-02-10] MEDS: ATROVENT NEB INH SCH ×6 (03:29→23:37)
[2019-02-10] MEDS: D5W 1,000 ML IV SCH ×2 (03:50→18:04)
[2019-02-10 04:30] LABS: ALLEN TEST YES; BE 12.4 mmoll (-3.0-3.0); BLOOD TYPE ARTERIAL; HCO3-(ACT) 34.5 mmoll (20.0-26.0); METHB 1.7 % (0.0-1.5); O2HB 92.7 % (95.0-99.0); PCO2(98.6) 41 mmHg (35-45); PO2(98.6) 70 mmHg (60-100); SAMPLE BLOOD; SAO2 96.5 % (95.0-100.0); THB 10.7 g/dL (11.5-17.4); pH(98.6) 7.55 (7.35-7.45)
[2019-02-10 04:32] LABS: MODALITY NRB
[2019-02-10] MEDS: PROTONIX IV SCH ×2 (05:11→07:07)
[2019-02-10 06:32] LABS: HEMATOCRIT 31.7 % (42.0-52.0); HEMOGLOBIN 10.4 g/dL (14.0-18.0); MCH 30.6 PG (27-31); MCHC 32.8 g/dL (33-37); MCV 93.2 FL (81-99); MPV 12.3 FL (7.4-10.4); RBC 3.4 XMIL (4.7-6.1); RDW 15.5 % (11.5-14.5); WBC 17.2 X1000 (4.8-10.8)
--- NOTE | 2019-02-10 06:37 | Diag Imaging Result Doc PS360 ---
EXAM: CHEST-PORTABLE HISTORY: respiratory failure TECHNIQUE: Chest single view COMPARISON: 02/09/2019 FINDINGS: There are dense bilateral infiltrates. These are more prominent than on the prior study. Small left effusion with small to moderate right effusion. No cardiomegaly. IMPRESSION: Interval worsening. Electronically signed by Ken Zaragoza 02/10/2019 6:34 AM
[2019-02-10 07:10] LABS: AGAP 8; ALB/GLOB RATIO 0.5; ALBUMIN 1.8 g/dL (3.5-5.0); ALKALINE PHOSPHATASE 97 U/L (32-122); BUN 19 mg/dL (8-22); CALCIUM 7.8 mg/dL (8.8-10.2); CHLORIDE 100 mmol/L (98-107); COSMO 280; CREATININE 0.4 mg/dL (0.7-1.2); ESTIMATED GFR > 60; GLUCOSE 100 mg/dL (70-104); GOT 46 U/L (10-34); GPT 27 U/L (10-44); POTASSIUM 3.6 mmol/L (3.5-5.1); SODIUM 139 mmol/L (136-145); TCO2 31 mmol/L (25-35); TOTAL BILIRUBIN 1.98 mg/dL (0.20-1.00); TOTAL PROTEIN 5.5 g/dL (6.3-8.3)
[2019-02-10] MEDS ORDERED: LASIX IV ONE (08:21)
[2019-02-10] MEDS: LOVENOX SUBQ SCH (08:45)
--- NOTE | 2019-02-10 10:58 | PROGRESS NOTE ---
DATE: 02/10/2019 INTERVAL HISTORY: The patient's blood pressure remained stable, still requiring non-rebreather but slightly improved oxygenation on that. Has not had to be put back on BiPAP this morning. No new complaints. No acute events overnight. REVIEW OF SYSTEMS: A 12-point review of systems negative except as per interval history. LABORATORY DATA: WBC 17.2, hemoglobin 10.4, hematocrit 31.7, platelets 294,000. ABG with pH 7.55, pCO2 40, PO2 70 on non-rebreather. BUN 19, creatinine 0.4, potassium 3.6, sodium 139, bilirubin 1.98, AST 46, ALT 27, alkaline phosphatase 94. BNP 1400. IMAGING: Chest x-ray still with dense bilateral infiltrates, possibly slightly more prominent than previous. OBJECTIVE: Vital Signs: T-max 100.0 degrees, pulse 105, respirations 25, blood pressure 139/79, O2 saturation 97%. General: No acute distress. HEENT: Normocephalic, atraumatic. Moist mucous membranes. No cervical adenopathy. Cardiovascular: Regular rate and rhythm. No murmurs noted. Pulmonary: Still coarse with some diffuse rhonchi, but slightly improved from previous. Abdomen: Soft, nontender, nondistended. Bowel sounds positive. Extremities: Peripheral pulses intact. No clubbing, cyanosis, edema. Neurologic: Cranial nerves grossly intact. Mild global weakness but no focal deficits. Psychiatric: Normal mood and affect. Awake, alert, oriented x3. Skin: No new rashes or lesions seen. Extensive tattooing. ASSESSMENT AND PLAN: 1. Septic shock secondary to pneumonia. Shock now resolved. Blood pressure remains good. 2. Pneumonia due to Klebsiella, acute hypoxic respiratory failure. The patient remains on antibiotics with vancomycin and Merrem. Oxygenation slightly improved today, although still requiring non-rebreather. Has not needed to be put back on the BiPAP this morning. Leukocytosis improving but very slowly. Chest x-ray actually looks slightly worse but clinically a little bit improved. We will likely hold the course and continue monitoring closely. 3. Acute kidney injury, resolved. 4. Transaminitis, likely combination of chronic hepatitis C and shock liver, essentially stable at this point. 5. Electrolyte abnormalities essentially all improved. We will continue to monitor labs. 6. Nutrition. The patient did well with swallow screen and now pureed diet which he appears to be tolerating, although has to eat in short bursts as his oxygen desaturates whenever he is off oxygen for more than a few seconds.
[2019-02-10] MEDS: TYLENOL PO PRN (11:43)
[2019-02-11] MEDS: VANCOMYCIN 1,550 MG in NS 250 ML IV SCH ×3 (00:30→23:28)
[2019-02-11] MEDS: D5W 1,000 ML IV SCH ×2 (01:05→21:47)
[2019-02-11] MEDS: MERREM 1 GM in NS 50 ML IV SCH ×4 (01:06→23:29)
[2019-02-11] MEDS: ATROVENT NEB INH SCH ×6 (03:21→23:04)
[2019-02-11] MEDS: XOPENEX NEB INH SCH ×6 (03:22→23:04)
[2019-02-11 04:27] LABS: ALLEN TEST YES; BE 13.6 mmoll (-3.0-3.0); BLOOD TYPE ARTERIAL; HCO3-(ACT) 35.4 mmoll (20.0-26.0); METHB 2.1 % (0.0-1.5); O2(CT) 15.4 mL/dL (15.0-23.0); O2HB 92.3 % (95.0-99.0); PCO2(98.6) 44 mmHg (35-45); PO2(98.6) 72 mmHg (60-100); SAMPLE BLOOD; SAO2 96.3 % (95.0-100.0); THB 11.8 g/dL (11.5-17.4); pH(98.6) 7.54 (7.35-7.45)
[2019-02-11 04:29] LABS: MODALITY NRB
[2019-02-11] MEDS: PROTONIX IV SCH ×2 (05:18→06:06)
--- NOTE | 2019-02-11 06:32 | Diag Imaging Result Doc PS360 ---
EXAM: CHEST-PORTABLE HISTORY: respiratory failure TECHNIQUE: Chest single view COMPARISON: 02/10/2019 FINDINGS: There are dense bilateral infiltrates similar to the prior exam. No cardiomegaly. There are small bilateral pleural effusions and basilar atelectasis. IMPRESSION: No significant interval change. Electronically signed by Ken Zaragoza 02/11/2019 6:29 AM
[2019-02-11 06:57] LABS: BASO# 0.04 X1000 (0.0-0.2); BASO% 0.3 % (0.0-0.8); EOS# 0.29 X1000 (0.0-0.7); EOS% 1.8 % (0.0-10.0); HEMATOCRIT 30.7 % (42.0-52.0); HEMOGLOBIN 10.1 g/dL (14.0-18.0); LYMPH# 1.84 X1000 (1.2-3.4); LYMPH% 11.6 % (20.5-51.1); MCH 31.9 PG (27-31); MCHC 32.9 g/dL (33-37); MCV 96.8 FL (81-99); MONO# 1.35 X1000 (0.11-0.59); MONO% 8.5 % (1.7-9.3); MPV 12.7 FL (7.4-10.4); NEUT# 12.37 X1000 (1.4-6.5); NEUT% 77.8 % (42.2-75.2); PLT 323 X1000 (130-400); RBC 3.17 XMIL (4.7-6.1); RDW 15.9 % (11.5-14.5); WBC 15.89 X1000 (4.8-10.8)
[2019-02-11 07:21] LABS: AGAP 9; ALB/GLOB RATIO 0.5; ALBUMIN 1.9 g/dL (3.5-5.0); ALKALINE PHOSPHATASE 86 U/L (32-122); BUN 14 mg/dL (8-22); CALCIUM 7.7 mg/dL (8.8-10.2); CHLORIDE 99 mmol/L (98-107); COSMO 278; CREATININE 0.4 mg/dL (0.7-1.2); ESTIMATED GFR > 60; GLUCOSE 99 mg/dL (70-104); GOT 33 U/L (10-34); GPT 23 U/L (10-44); POTASSIUM 3.5 mmol/L (3.5-5.1); SODIUM 139 mmol/L (136-145); TCO2 31 mmol/L (25-35); TOTAL BILIRUBIN 1.48 mg/dL (0.20-1.00); TOTAL PROTEIN 5.5 g/dL (6.3-8.3)
[2019-02-11] MEDS: LOVENOX SUBQ SCH (09:39)
--- NOTE | 2019-02-11 09:51 | INFECTIOUS DISEASE PROGRESS NO ---
DATE: 02/11/2019 PRESENT ILLNESS: The patient has an overwhelming pneumonia. MEDICATIONS: The patient has been on the combination of meropenem and vancomycin now for the past 6 days. PHYSICAL EXAMINATION: Vital Signs: Temperature is 99 degrees, pulse 104, respirations 20, blood pressure 133/79. General: This is a chronically ill-appearing, middle-aged male. He has a regular oxygen mask, and not the BiPAP mask he was wearing a few days ago. HEENT: No drainage noted from the nose or ears. He does appear to have a slight whitening of his tongue, but he says he had recently had some vanilla ice cream, and his tongue is not painful. Neck: No pain with movement. Lungs: Clear to auscultation. Cardiovascular: Heart rate is regular. Abdomen: Firm, but not tender. Thorax: The patient has an increased AP diameter of his chest. Neurologic: The patient is alert today. He carries on a coherent conversation. He can move his extremities. He does not have a tremor. IMAGING AND LABORATORY DATA: Chest x-ray shows no change in the bilateral infiltrates. Liver function studies are normal, except for a bilirubin of 1.48. Creatinine 0.4. GFR is greater than 60. Arterial blood gases show a pH of 7.54, PO2 of 72, and a pCO2 of 44. ASSESSMENT AND PLAN: The patient has pneumonia. I plan on continuing meropenem and vancomycin. COMORBIDITIES: Cigarette smoking and chronic obstructive pulmonary disease. cc: Alcides Mota MD
[2019-02-11] MEDS: TYLENOL PO PRN ×2 (12:09→17:18)
--- NOTE | 2019-02-11 12:49 | PROGRESS NOTE ---
DATE: 02/11/2019 INTERVAL HISTORY: Patient with continued slow improvement in oxygenation. I am giving him a trial on 80% mask rather than a full nonrebreather. No acute events overnight. No new complaints. Remains afebrile. REVIEW OF SYSTEMS: A 12-point review of systems is negative, except as per interval history. LABORATORY DATA: WBC 15.8, hemoglobin 10.1, hematocrit 30.0, platelets 373,000. ABG with pH 7.5, pCO2 of 44, PO2 of 72 on nonrebreather. Basic metabolic panel unremarkable. Bilirubin 1.48, AST 33, ALT 23, alkaline phosphatase 86. IMAGING: Chest x-ray essentially unchanged from previous with dense bilateral infiltrates. OBJECTIVE: Vital Signs: T-max 99.9 degrees, pulse 102, respirations 22, blood pressure 139/72, O2 saturation 95%. General: No acute distress. HEENT: Normocephalic, atraumatic. Moist mucous membranes. No cervical adenopathy. Cardiovascular: Regular rate and rhythm. No murmurs noted. Pulmonary: Slight improvement in diffuse rhonchi. Good air entry. Abdomen: Soft, nontender, nondistended. Bowel sounds positive. Extremities: Peripheral pulses intact. No clubbing, cyanosis, or edema. Neurologic: Cranial nerves grossly intact. No focal deficits identified. Psychiatric: Normal mood and affect. Awake, alert, and oriented x3. Skin: No new rashes or lesions seen. Extensive tattooing, unchanged. ASSESSMENT AND PLAN: 1. Septic shock secondary to pneumonia. Now resolved. Blood pressure remains good. 2. Pneumonia due to Klebsiella, acute hypoxic respiratory failure. The patient remains on antibiotics with vancomycin and Merrem as per Infectious Disease. Oxygenation with very slow, but steady improvement. I suspect we can get him off the nonrebreather today to the 80% mask, but will see how it goes. He does not need bilevel positive airway pressure in a couple of days. Leukocytosis is also improving slowly. Continue treatment and monitor. 3. Acute kidney injury, resolved. 4. Transaminitis, likely a combination of chronic hepatitis C and shock liver. Nearly resolved at this point. 5. Electrolyte abnormalities. Potassium and magnesium improved today. Continue to monitor. 6. Anemia. Blood counts stable. Monitor. 7. Nutrition. Tolerating pureed diet well.
--- NOTE | 2019-02-11 20:51 | PULMONOLOGY PROGRESS NOTE ---
DATE: 02/11/2019 SUBJECTIVE: The patient is awake, alert, and conversant. He has a cough which appears to be dry. OBJECTIVE: Vital Signs: BP 130/72, heart rate 98, respiratory rate 24, oxygen saturation 97% on non-rebreather. Maximum temperature in the last 24 hours 100.5 degrees. HEENT: Pupils are equal and reactive. Oropharynx is clear. Neck: Supple. Chest: Crackles bilaterally. Cardiac: S1, S2. Abdomen: Soft. Extremities: Without edema. LABORATORIES: Chest x-ray reveals bilateral infiltrates, right greater than left. White blood count 15.8, hemoglobin 10.1, platelet count 323,000. Sodium 139, potassium 3.5, chloride 99, bicarbonate 31, BUN 14, creatinine 0.4. Arterial blood gas: PH 7.54, pCO2 of 44, pO2 of 72 on non-rebreather. IMPRESSION: A 63-year-old with: 1. Klebsiella pneumonia. 2. Component of acute respiratory distress syndrome. 3. Acute hypoxemic respiratory failure. 4. Protein-calorie malnutrition. 5. Tobacco use/nicotine addiction. DISCUSSION: A 63-year-old with problems outlined above. The patient has significant infiltrates along with increased oxygen requirements, but clinically appears to be improving. It may take a period of time for his acute lung injury to resolve. RECOMMENDATIONS: 1. Continue to balance intake and output. 2. Continue nonrebreather and BiPAP cycled as necessary. 3. Antibiotics per Infectious Disease. 4. Initiate physical therapy. The patient is weak and will need to be mobilized. cc: Curtis Albrecht MD
[2019-02-12] MEDS: XOPENEX NEB INH SCH ×6 (03:17→23:13)
[2019-02-12] MEDS: ATROVENT NEB INH SCH ×6 (03:17→23:13)
[2019-02-12 04:35] LABS: ALLEN TEST YES; BE 11.1 mmoll (-3.0-3.0); BLOOD TYPE ARTERIAL; HCO3-(ACT) 33.5 mmoll (20.0-26.0); METHB 1.6 % (0.0-1.5); O2(CT) 15.1 mL/dL (15.0-23.0); O2HB 93.5 % (95.0-99.0); PCO2(98.6) 47 mmHg (35-45); PO2(98.6) 76 mmHg (60-100); SAMPLE BLOOD; SAO2 97.2 % (95.0-100.0); THB 11.4 g/dL (11.5-17.4); pH(98.6) 7.49 (7.35-7.45)
[2019-02-12 04:36] LABS: MODALITY PRB
[2019-02-12] MEDS: PROTONIX IV SCH (06:14)
[2019-02-12 06:31] LABS: HEMATOCRIT 29.4 % (42.0-52.0); HEMOGLOBIN 9.6 g/dL (14.0-18.0); MCH 31.5 PG (27-31); MCHC 32.7 g/dL (33-37); MCV 96.4 FL (81-99); MPV 12.5 FL (7.4-10.4); RBC 3.05 XMIL (4.7-6.1); RDW 15.7 % (11.5-14.5); WBC 12.76 X1000 (4.8-10.8)
[2019-02-12 07:10] LABS: AGAP 9; ALB/GLOB RATIO 0.6; ALKALINE PHOSPHATASE 93 U/L (32-122); BUN 13 mg/dL (8-22); CALCIUM 7.6 mg/dL (8.8-10.2); CHLORIDE 101 mmol/L (98-107); COSMO 280; CREATININE 0.4 mg/dL (0.7-1.2); ESTIMATED GFR > 60; GLUCOSE 100 mg/dL (70-104); GOT 38 U/L (10-34); GPT 25 U/L (10-44); POTASSIUM 3.7 mmol/L (3.5-5.1); SODIUM 140 mmol/L (136-145); TCO2 30 mmol/L (25-35); TOTAL BILIRUBIN 1.24 mg/dL (0.20-1.00); TOTAL PROTEIN 5.6 g/dL (6.3-8.3)
--- NOTE | 2019-02-12 07:18 | Diag Imaging Result Doc PS360 ---
EXAM: CHEST-PORTABLE 02/12/2019 HISTORY: respiratory failure TECHNIQUE: AP portable at 0540 COMMENT: There are bilateral pleural fluid collections. There is diffuse alveolar opacification of both lungs. There has been little apparent change since the previous study of 02/11/2019, however the alveolar opacities particularly in the right upper lobe are worse in comparison with 02/09/2019. IMPRESSION: Pulmonary edema and/or pneumonia with pleural effusions. Electronically signed by Perry Richey 02/12/2019 7:16 AM
[2019-02-12] MEDS: LOVENOX SUBQ SCH (09:13)
[2019-02-12] MEDS: MERREM 1 GM in NS 50 ML IV SCH ×2 (09:13→18:12)
[2019-02-12] MEDS ORDERED: LASIX IV ONE (09:21)
--- NOTE | 2019-02-12 09:38 | PROGRESS NOTE ---
DATE: 02/12/2019 SUBJECTIVE: The patient seems to be doing much better. He has been using a nonrebreathing mask. Blood pressure and oxygen saturation have been more stable. X-ray is still showing pulmonary edema and/or pneumonia with bilateral pleural effusion. Pulmonary Department as well as Infectious Disease Department are following this patient closely. OBJECTIVE: Vital Signs: Temperature 98.7 degrees, pulse 102, respiratory rate 23, blood pressure 146/82, oxygen saturation 98 on a nonrebreathing mask. HEENT: Head normocephalic. No trauma. PERRLA. Neck: Supple. No JVD. Central trachea. Chest: Decreased breath sounds globally with coarse breath sounds, mostly at the bases, with some crepitus. Abdomen: Soft, nontender, nondistended. No hepatosplenomegaly. Extremities: No edema, no clubbing, no cyanosis. Neurological: The patient is awake, alert. He is following commands. He moves all 4 extremities spontaneously. He is answering my questions. LABORATORY DATA: WBC 12.7, hemoglobin 9.6, hematocrit 29.4, platelets 350,000. Sodium 140, potassium 3.7, chloride 101, bicarbonate 30, BUN 13, creatinine 0.4, glucose 100, calcium 7.6. Total bilirubin 1.2, AST 38, ALT 25, alkaline phosphatase 93, albumin 2. ASSESSMENT AND PLAN: 1. Septic shock, resolved. Continue following the recommendations of Infectious Disease Department. He does have pneumonia due to Klebsiella. 2. Extensive right-sided pneumonia due to Klebsiella. Continue with antibiotics. 3. DOUG. Will continue with the same management for now. Kidney function seems to be stable. 4. Pulmonary edema. Will continue with the same management for now. 5. Electrolyte imbalance. Will continue to monitor this closely. 6. Acute kidney injury, resolved. 7. Acute hypoxemic respiratory failure. This patient has been extubated a few days ago. We are still using high-flow oxygen with the nonrebreathing mask. 8. Elevated liver function tests, likely secondary to shock liver and history of hepatitis C, much better. 9. Hepatitis C, as above. 10. Metabolic acidosis, likely secondary to septic shock, resolved. 11. Dehydration, resolved. 12. Diarrhea, better. 13. Deep vein thrombosis prophylaxis with Lovenox on a daily basis. 14. Nutritional status. This patient has been placed on a diet, and he seems to be tolerating this. 15. Acute respiratory distress syndrome. This is getting better. Continue with the same treatment. 16. Moderate protein calorie malnutrition. Continue with his diet. 17. History of tobacco use, nicotine addiction. This patient has been highly advised against tobacco use. Will continue with daily cessation education. cc: Agapito Hunter MD MTDD
[2019-02-12] MEDS: D5W 1,000 ML IV SCH ×2 (10:22→18:07)
[2019-02-12] MEDS: VANCOMYCIN 1,550 MG in NS 250 ML IV SCH (11:35)
[2019-02-12] MEDS: ZYVOX PO SCH (20:12)
--- NOTE | 2019-02-12 22:00 | INFECTIOUS DISEASE PROGRESS NO ---
DATE: 02/12/2019 PRESENT ILLNESS: Mr. Cespedes is being treated for a Klebsiella pneumonia which has a component of acute respiratory distress syndrome. MEDICATIONS: He has been receiving IV vancomycin per pharmacy dosing, and meropenem 1 g IV every 8 hours. PHYSICAL EXAMINATION: Vital Signs: Temperature is 96.5 degrees, pulse rate 94, respiratory rate 20, blood pressure 140/73. O2 saturation is 100% on a partial rebreather. General: This is a chronically ill appearing, middle-aged gentleman. He is lying in the bed on his right lateral side in no acute distress. HEENT: Atraumatic, normocephalic. Oral mucous membranes are pink and moist. Conjunctivae are pale. Neck: Supple. Trachea is midline. Cardiovascular: Heart rate and rhythm are regular. Normal sinus rhythm on the monitor. Respiratory: Lung sounds have coarse rhonchi and scattered wheezes bilaterally. No work of breathing is noted. Abdomen: Mildly firm and tender to palpation. Bowel sounds are active. Integumentary: Skin is warm and dry with multiple tattoos. There is a right femoral triple-lumen catheter site which is without edema, erythema, or drainage. Neurologic: He is awake, alert, and oriented, able to move around in the bed independently. LABORATORY AND X-RAY: Today, his white count is 12.76, hemoglobin 9.6, platelet count 350,000. On a partial rebreather, his pH is 7.49, pCO2 47, pO2 76, HCO3 33.5. Creatinine is 0.4. Estimated GFR is greater than 60. Total bilirubin is 1.24. AST 38, ALT 25, alkaline phosphatase 93. His sputum had previously grown a Klebsiella pneumoniae. Chest x-ray today shows pulmonary edema and/or pneumonia with pleural effusions and diffuse alveolar opacification of both lungs. ASSESSMENT AND PLAN: Mr. Cespedes is being treated for pneumonia with vancomycin and meropenem. Today he is noted to be hard of hearing, so we will stop vancomycin and instead give him Zyvox 600 mg by mouth every 12 hours. We will continue meropenem as ordered. At this point, he seems to be improving with the white count continuing to trend downward. These plans have been discussed with and recommended by Dr. Mota. COMORBIDITIES: For Mr. Cespedes, include cigarette smoking, COPD, and he is a [place] of the nursing home system. Dictated by VIRGEN Peterson for Alcides Mota MD cc: Alcides Mota MD
[2019-02-13] MEDS: ATROVENT NEB INH SCH ×6 (03:19→23:46)
[2019-02-13] MEDS: XOPENEX NEB INH SCH ×6 (03:19→23:46)
--- NOTE | 2019-02-13 04:01 | PULMONOLOGY PROGRESS NOTE ---
DATE: 02/12/2019 SUBJECTIVE: The patient is awake, alert and conversant. He denies shortness of breath. He has a relatively dry cough. His appetite is improving. He was able to sit up with assistance today, and to stand and move a short distance. OBJECTIVE: Vital Signs: Maximum temperature the last 24 hours was 100.5 degrees, blood pressure 147/73, heart rate 93, respiratory rate 25, oxygen saturation 99% on 80% FiO2. HEENT: Pupils are equal and reactive. Oropharynx appears clear. Neck: Supple. Chest: Reveals faint crackles with a basilar predominance. Abdomen: Soft. Extremities: Without edema. LABORATORY DATA: Chest x-ray reveals diffuse bilateral infiltrates without significant change from yesterday. White blood count is 12.76, hemoglobin 9.6, platelet count 350,000. Arterial blood gas reveals a pH of 7.49, pCO2 of 47, PO2 of 76 on 80% FiO2. Sodium 140, potassium 3.7, chloride 101, bicarbonate 30, BUN 13, creatinine 0.4, glucose 100, total protein 5.6, albumin 2.0. IMPRESSION: A 63-year-old with: 1. Klebsiella pneumonia. 2. Acute/adult respiratory distress syndrome. 3. Acute hypoxemic respiratory failure. 4. Protein calorie malnutrition. DISCUSSION: A 63-year-old with problems outlined above. He is profoundly weak due to his severe illness. He continues to have high oxygen requirements, but continues to clinically improve. PLAN: 1. Continue antibiotics under the direction of Infectious Disease. 2. Continue oxygen or BiPAP as necessary. 3. Encourage continued p.o. intake. 4. Continue physical therapy. 5. From a pulmonary standpoint the patient can be moved to a step-down unit if he remains stable by tomorrow morning. cc: Curtis Albrecht MD
[2019-02-13] MEDS: MERREM 1 GM in NS 50 ML IV SCH ×3 (04:07→18:30)
[2019-02-13 05:23] LABS: HEMATOCRIT 29.4 % (42.0-52.0); HEMOGLOBIN 9.5 g/dL (14.0-18.0); MCH 31.3 PG (27-31); MCHC 32.3 g/dL (33-37); MCV 96.7 FL (81-99); MPV 11.8 FL (7.4-10.4); RBC 3.04 XMIL (4.7-6.1); RDW 15.3 % (11.5-14.5); WBC 10.32 X1000 (4.8-10.8)
[2019-02-13 06:01] LABS: AGAP 8; ALB/GLOB RATIO 0.7; ALBUMIN 2.1 g/dL (3.5-5.0); ALKALINE PHOSPHATASE 84 U/L (32-122); BUN 10 mg/dL (8-22); CALCIUM 7.6 mg/dL (8.8-10.2); CHLORIDE 98 mmol/L (98-107); COSMO 277; CREATININE 0.4 mg/dL (0.7-1.2); ESTIMATED GFR > 60; GLUCOSE 104 mg/dL (70-104); GOT 36 U/L (10-34); GPT 24 U/L (10-44); POTASSIUM 3.7 mmol/L (3.5-5.1); SODIUM 139 mmol/L (136-145); TCO2 33 mmol/L (25-35); TOTAL PROTEIN 5.1 g/dL (6.3-8.3)
[2019-02-13] MEDS: PROTONIX IV SCH (06:17)
[2019-02-13] MEDS: SODIUM CHLORIDE 0.9% INJ SCH (06:17)
--- NOTE | 2019-02-13 06:36 | Diag Imaging Result Doc PS360 ---
CHEST-PORTABLE - 02/13/2019 INDICATION: respiratory failure COMPARISON: 02/12/2019 FINDINGS: Stable dense, coarse infiltrates diffusely and bilaterally. Stable small to moderate bilateral pleural effusions. Heart size remains stable. Lungs appear hyperexpanded. IMPRESSION: No change from prior. Electronically signed by Jan Jesus 02/13/2019 6:34 AM
[2019-02-13] MEDS: D5W 1,000 ML IV SCH ×2 (08:33→20:35)
[2019-02-13] MEDS: MYCOSTATIN SUSP PO SCH ×4 (08:34→20:34)
[2019-02-13] MEDS: TYLENOL PO PRN (08:36)
[2019-02-13] MEDS: ZYVOX PO SCH ×2 (08:36→20:34)
[2019-02-13] MEDS: LOVENOX SUBQ SCH (08:37)
--- NOTE | 2019-02-13 09:00 | PROGRESS NOTE ---
DATE: 02/13/2019 SUBJECTIVE: The patient is doing better. He is on a Ventimask today. Vital signs are more stable as well as the laboratory, I believe this patient can be transferred to a step-down unit safely. Will continue with the same management for now. OBJECTIVE: Vital Signs: Temperature 98.9 degrees, pulse 85, respiratory rate 24, blood pressure 142/79, oxygen saturation 97% on a Venturi mask. HEENT: Head normocephalic, no trauma. PERRLA. Neck: Supple. No JVD. No masses. Central trachea. Chest: Decreased breath sounds globally with coarse breath sounds mostly at the bases, some crepitus. Abdomen: Soft, nontender, nondistended. No hepatosplenomegaly. Extremities: No edema, no clubbing, no cyanosis. Decreased muscle mass. Neurological: The patient is awake. He is following commands. He moves all 4 extremities. He does have generalized weakness. LABORATORY DATA: WBC 10.3, hemoglobin 9.5, hematocrit 29.4, platelets 320,000. Sodium 139, potassium 3.7, chloride 98, bicarbonate 33, BUN 10, creatinine 0.4, glucose 104, calcium 7.6. Total bilirubin 1.2, AST 36, ALT 24, alkaline phosphatase 84, albumin 2.1. ASSESSMENT AND PLAN: 1. Septic shock, resolved. We will continue following the recommendations of Infectious Disease Department. 2. Extensive bilateral pneumonia due to Klebsiella. Continue with antibiotics. 3. Acute kidney injury, resolved. 4. Pulmonary edema. We will continue with same management for now. He seems to be getting better. 5. Electrolyte imbalance. We will continue to monitor this closely. 6. Acute hypoxemic respiratory failure. This patient has been extubated a few days ago. We are using now a Ventimask. 7. Elevated liver function tests, likely a combination of shock liver and hepatitis C. 8. Hepatitis C. He will need to monitor and treat this as an outpatient. 9. Metabolic acidosis, likely secondary to septic shock, resolved. 10. Dehydration, resolved. 11. Diarrhea, better. 12. Deep vein thrombosis prophylaxis with Lovenox on a daily basis. 13. Nutritional status. Continue with this patient's diet. He seems to be doing well. 14. Acute respiratory distress syndrome. This is getting better. Continue with same management. 15. Moderate protein calorie malnutrition. Continue with his diet. 16. History of tobacco use and abuse. This patient has been highly advised against tobacco use. I will continue with daily cessation education. 17. Generalized weakness and physical deconditioning. Continue physical therapy. cc: Agapito Hunter MD
--- NOTE | 2019-02-13 09:31 | INFECTIOUS DISEASE PROGRESS NO ---
DATE: 02/13/2019 PRESENT ILLNESS: The patient is being treated for Klebsiella pneumonia. He has required to be put on vancomycin and meropenem because he did not do well when he was just on an antibiotic that treats Klebsiella. MEDICATIONS: The patient has been on meropenem and at 1st vancomycin and then Zyvox for a total of 7 days. PHYSICAL EXAMINATION: Vital Signs: Temperature is 99 degrees, pulse 85, respirations 24, blood pressure 142/79. General: This is an ill-appearing middle-aged male. He is in no acute distress today. Head/eyes/ears/nose/throat: He can hear my spoken words and see near objects. He does have a white coating on his tongue. Neck: No meningismus. Lungs: Clear to auscultation. Cardiovascular: Heart rate is regular. Abdomen: Soft and nontender. Integument: The patient has multiple tattoos. Extremities: Patient has a right femoral triple-lumen catheter in place. There is no erythema or drainage from the site. Neurologic: Patient is alert. He can move his extremities. He talks in a coherent fashion. LAB AND X-RAY: Chest x-ray shows continued bilateral infiltrates. CBC shows a white count 51727, hemoglobin 9.5, platelet count 320,000. Creatinine is 0.4, GFR is greater than 60, bilirubin is 1.2, AST is 36. ASSESSMENT AND PLAN: The patient has bilateral pneumonia, also appears to me he has oral candidiasis. My plan is to continue his current antibiotics, namely Zyvox and meropenem and start him also on nystatin swish and swallow. COMORBIDITIES: Cigarette smoking, COPD, and the patient is incarcerated at this time. cc: Alcides Mota MD
--- NOTE | 2019-02-13 12:57 | PULMONOLOGY PROGRESS NOTE ---
DATE: 02/13/2019 SUBJECTIVE: The patient is awake, alert, and conversant. He has no increased work of breathing. He reports minimal sputum production. He is tolerating p.o. intake. OBJECTIVE: Maximum temperature in the last 24 hours is 99.8 degrees, blood pressure 125/59, heart rate 93, respiratory rate 25, oxygen saturation 99% on 50% FiO2. HEENT: Pupils are equal and reactive. Oropharynx is clear. Neck: Supple. Chest: Reveals bilateral crackles without significant rhonchi. Cardiac Examination: S1-S2. Abdomen: Soft. Extremities: Without edema. Laboratories: Chest x-ray reveals bilateral infiltrates, right greater than left. No change from yesterday. White blood count 10.32, hemoglobin 9.5, platelet count 320,000. Chemistry: Sodium 139, potassium 3.7, chloride 98, bicarbonate 33, BUN 10, creatinine 0.4. IMPRESSION: A 63-year-old with: 1. Klebsiella pneumonia. 2. Adult respiratory distress syndrome. 3. Acute hypoxemic respiratory failure. 4. Protein calorie malnutrition. PLAN: 1. Continue antibiotics under the direction of infectious disease. The patient likely has a fibrotic response to his severe pneumonia. His white blood count is now normal. His chest x- ray will likely take weeks to clear. 2. Cycle oxygen/BiPAP as necessary. 3. Continue physical therapy. 4. Continue p.o. intake. 5. Agree with transfer to the floor. cc: Curtis Albrecht MD
[2019-02-14] MEDS: MERREM 1 GM in NS 50 ML IV SCH ×3 (02:47→20:42)
[2019-02-14] MEDS: XOPENEX NEB INH SCH ×6 (03:44→23:37)
[2019-02-14] MEDS: ATROVENT NEB INH SCH ×6 (03:44→23:37)
[2019-02-14 05:03] LABS: ALLEN TEST YES; BE 10.7 mmoll (-3.0-3.0); BLOOD TYPE ARTERIAL; HCO3-(ACT) 33.2 mmoll (20.0-26.0); METHB 1.8 % (0.0-1.5); O2(CT) 13.3 mL/dL (15.0-23.0); O2HB 93.5 % (95.0-99.0); PCO2(98.6) 40 mmHg (35-45); PO2(98.6) 71 mmHg (60-100); SAMPLE BLOOD; SAO2 97.2 % (95.0-100.0); THB 10.1 g/dL (11.5-17.4); pH(98.6) 7.54 (7.35-7.45)
[2019-02-14 05:09] LABS: MODALITY VENTIMASK
[2019-02-14] MEDS: PROTONIX IV SCH ×2 (05:09→06:17)
[2019-02-14 06:46] LABS: BASO# 0.02 X1000 (0.0-0.2); BASO% 0.2 % (0.0-0.8); EOS# 0.18 X1000 (0.0-0.7); EOS% 1.9 % (0.0-10.0); HEMATOCRIT 29.8 % (42.0-52.0); HEMOGLOBIN 9.3 g/dL (14.0-18.0); IMM GRAN# 0.03 X1000 (0.0-0.04); IMM GRAN% 0.3 % (0.0-0.5); LYMPH# 1.72 X1000 (1.2-3.4); LYMPH% 18.4 % (20.5-51.1); MCHC 31.2 g/dL (33-37); MCV 96.1 FL (81-99); MONO# 1.27 X1000 (0.11-0.59); MONO% 13.6 % (1.7-9.3); MPV 11.7 FL (7.4-10.4); NEUT# 6.11 X1000 (1.4-6.5); NEUT% 65.6 % (42.2-75.2); PLT 380 X1000 (130-400); RDW 15.1 % (11.5-14.5); WBC 9.33 X1000 (4.8-10.8)
[2019-02-14 07:06] LABS: AGAP 8; BUN 9 mg/dL (8-22); CALCIUM 7.9 mg/dL (8.8-10.2); CHLORIDE 99 mmol/L (98-107); COSMO 275; CREATININE 0.5 mg/dL (0.7-1.2); ESTIMATED GFR > 60; GLUCOSE 103 mg/dL (70-104); MAGNESIUM 1.8 mg/dL (1.5-2.7); POTASSIUM 3.8 mmol/L (3.5-5.1); SODIUM 138 mmol/L (136-145); TCO2 31 mmol/L (25-35)
[2019-02-14] MEDS: LOVENOX SUBQ SCH (08:14)
[2019-02-14] MEDS: ZYVOX PO SCH ×2 (08:14→20:42)
[2019-02-14] MEDS: D5W 1,000 ML IV SCH (08:14)
[2019-02-14] MEDS: MYCOSTATIN SUSP PO SCH ×5 (08:14→20:42)
--- NOTE | 2019-02-14 11:50 | PROGRESS NOTE ---
DATE: 02/14/2019 SUBJECTIVE: This patient seems to be getting better. He is still on a Ventimask. He is tolerating p.o., so I will stop the fluids. He is using a condom cath. Kidney function is stable. WBC normalized. OBJECTIVE: Vital Signs: Temperature 98 degrees, pulse 95, respiratory rate 16, blood pressure 136/70, oxygen saturation 95% on a Venturi mask. HEENT: Head normocephalic. No trauma. PERRLA. Neck: Supple. No JVD. No masses. Central trachea. Chest: Decreased breath sounds, mostly at the bases, with coarse breath sounds at the bases as well. Some crepitus. Abdomen: Soft, nontender, nondistended. No hepatosplenomegaly. Extremities: No edema, no clubbing, no cyanosis. Decreased muscle mass. Neurological: The patient is awake. He is following commands. He moves all 4 extremities. He does have generalized weakness. LABORATORY DATA: WBC 9.3, hemoglobin 9.3, hematocrit 29.8, platelets 380,000. Sodium 138, potassium 3.8, chloride 99, bicarbonate 31, BUN 9, creatinine 0.5, glucose 103, calcium 7.9. Magnesium 1.8. ASSESSMENT AND PLAN: 1. Septic shock, resolved. Continue with antibiotics. 2. Extensive bilateral pneumonia due to Klebsiella. Continue with antibiotics. 3. Acute kidney injury, resolved. 4. Pulmonary edema. Continue with the same management for now. 5. Electrolyte imbalance, resolved. Will continue to monitor. 6. Acute hypoxemic respiratory failure. This patient has been extubated a few days ago. We are now using a Ventimask. Will continue to monitor. 7. Elevated liver function tests, likely a combination of shock liver and hepatitis C. 8. Hepatitis C. He will need to be monitored and treated as an outpatient. 9. Metabolic acidosis, resolved. 10. Dehydration, resolved. 11. Diarrhea, resolved. 12. Deep vein thrombosis prophylaxis with Lovenox. 13. Nutritional status. Continue with the same diet. He seems to be doing well. 14. Acute respiratory distress syndrome. This is getting better. Continue with the same management. Pulmonary Department on board. 15. Moderate protein calorie malnutrition. Continue with his diet, Ensure with meals. 16. History of tobacco use and abuse. This patient has been advised against tobacco use. Will continue with daily cessation education. 17. Generalized weakness and physical deconditioning. Continue physical therapy. Overall, this patient is getting better, but he is still hypoxemic. I do believe it is going to take time to recover, and probably he will need to be discharged with oxygen. In the meantime, will continue with the same management, and I will follow the recommendations of Pulmonary Department. cc: Agapito Hunter MD
[2019-02-14] MEDS ORDERED: LASIX IV ONE (20:11)
[2019-02-15] MEDS: XOPENEX NEB INH SCH ×6 (03:16→23:24)
[2019-02-15] MEDS: ATROVENT NEB INH SCH ×6 (03:16→23:24)
--- NOTE | 2019-02-15 03:19 | PULMONOLOGY PROGRESS NOTE ---
DATE: 02/14/2019 SUBJECTIVE: The patient is awake, alert and conversant. He denies shortness of breath. He has no significant sputum production. OBJECTIVE: Vital Signs: The patient has been afebrile for the last 24 hours. Blood pressure is 140/70, heart rate 101, respiratory rate 2, oxygen saturation is 96% on 50% face mask. HEENT: Pupils are equal and reactive. Oropharynx appears clear. Neck: Supple. Chest: Reveals bilateral crackles. Cardiac Exam: S1, S2. Abdomen: Soft. Extremities: Without edema. LABORATORY DATA: White blood count 9.33, hemoglobin 9.3, platelet count 380,000. Arterial blood gas pH of 7.54, pCO2 of 40, pO2 of 71. IMPRESSION: A 63-year-old with: 1. Klebsiella pneumonia. 2. Adult respiratory distress syndrome. 3. Acute hypoxemic respiratory failure. 4. Protein calorie malnutrition. PLAN: 1. Continue antibiotics per Infectious Disease. I believe a component of his radiographic findings are more likely to be inflammatory following his infection. He no longer is producing sputum, and he has remained afebrile. His white blood count is now normal. I believe he can have his antibiotics tapered soon if Infectious Disease agrees. 2. Continue to wean oxygen as tolerated. 3. Encourage p.o. intake. 4. Continue physical therapy. 5. Consider transfer to a routine floor if he continues to do well. cc: Curtis Albrecht MD
[2019-02-15] MEDS: PROTONIX IV SCH ×2 (05:50→06:12)
[2019-02-15] MEDS: MERREM 1 GM in NS 50 ML IV SCH (05:50)
[2019-02-15 06:32] LABS: BASO# 0.03 X1000 (0.0-0.2); BASO% 0.3 % (0.0-0.8); EOS# 0.29 X1000 (0.0-0.7); HEMOGLOBIN 9.8 g/dL (14.0-18.0); IMM GRAN# 0.03 X1000 (0.0-0.04); IMM GRAN% 0.3 % (0.0-0.5); LYMPH# 1.93 X1000 (1.2-3.4); LYMPH% 19.9 % (20.5-51.1); MCH 30.2 PG (27-31); MCHC 31.6 g/dL (33-37); MCV 95.7 FL (81-99); MONO# 1.25 X1000 (0.11-0.59); MONO% 12.9 % (1.7-9.3); MPV 11.9 FL (7.4-10.4); NEUT# 6.16 X1000 (1.4-6.5); NEUT% 63.6 % (42.2-75.2); PLT 406 X1000 (130-400); RBC 3.24 XMIL (4.7-6.1); RDW 15.1 % (11.5-14.5); WBC 9.69 X1000 (4.8-10.8)
[2019-02-15 06:43] LABS: AGAP 6; BUN 9 mg/dL (8-22); CHLORIDE 98 mmol/L (98-107); COSMO 270; CREATININE 0.5 mg/dL (0.7-1.2); ESTIMATED GFR > 60; GLUCOSE 95 mg/dL (70-104); POTASSIUM 4.1 mmol/L (3.5-5.1); SODIUM 136 mmol/L (136-145); TCO2 32 mmol/L (25-35)
[2019-02-15] MEDS: LOVENOX SUBQ SCH (08:11)
[2019-02-15] MEDS: MYCOSTATIN SUSP PO SCH ×4 (08:11→21:21)
[2019-02-15] MEDS: ZYVOX PO SCH (08:11)
[2019-02-15] MEDS: LEVAQUIN PO SCH (09:59)
--- NOTE | 2019-02-15 10:25 | PROGRESS NOTE ---
DATE: 02/15/2019 SUBJECTIVE: The patient seems to be getting better. He is still on a Ventimask. He is tolerating p.o., having bowel movements. Kidney function seems to be stable. WBC normalized. OBJECTIVE: Vital Signs: Temperature 98.9 degrees, pulse 90, respiratory rate 18, blood pressure 108/45, oxygen saturation 98% on a Venturi mask. HEENT: Head normocephalic, no trauma, PERRLA. Neck: Supple. No JVD. No masses. Central trachea. Chest: Decreased breath sounds mostly at the bases with some crepitus and coarse breath sounds mostly on the right side. Abdomen: Soft, nontender, nondistended. No hepatosplenomegaly. Extremities: No edema, no clubbing, no cyanosis. Decreased muscle mass. Neurological: The patient is awake, he is alert, he is following commands. He does have generalized weakness. LABORATORY: WBC 9.6, hemoglobin 9.8, hematocrit 31, platelets 406,000. Sodium 136, potassium 4.1, chloride 98, bicarbonate 32, BUN 9, creatinine 0.5, glucose 95, calcium 8. ASSESSMENT AND PLAN: 1. Septic shock, resolved. Continue with antibiotics per Infectious Disease Department. 2. Extensive bilateral pneumonia due to Klebsiella. Continue with antibiotics. 3. Acute kidney injury, resolved. 4. Pulmonary edema. Continue with same management. This is better. 5. Electrolyte imbalance, resolved. 6. Acute hypoxemic respiratory failure. This patient has been extubated a few days ago. We are using a Ventimask at this moment. We will continue to monitor. 7. Elevated liver function tests, likely a combination of shock liver and hepatitis C. 8. Hepatitis C. We will need to monitor this and treat as an outpatient. 9. Metabolic acidosis, resolved. 10. Dehydration, resolved. 11. Diarrhea, resolved. 12. Deep vein thrombosis prophylaxis with Lovenox. 13. Nutritional status, continue with diet. He is tolerating p.o. 14. Adult respiratory distress syndrome, this is getting better. Continue with same treatment. Likely, he has post inflammatory damage after the treatment for pneumonia and ARDS. 15. Moderate protein calorie malnutrition. Continue with his diet, Ensure with meals. 16. History of tobacco use and abuse. This patient has been advised against tobacco use. I will continue with daily cessation education. 17. Generalized weakness and physical deconditioning. Continue physical therapy. 18. Overall, this patient is getting better. 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 We will continue with the same management here. I will transfer this patient to the floor. cc: Agapito Hunter MD
--- NOTE | 2019-02-15 10:54 | Diag Imaging Result Doc PS360 ---
CHEST-2 VIEWS - 02/15/2019 INDICATION: abnormal exam COMPARISON: 02/13/2019 FINDINGS: Stable severe COPD. Stable small to moderate right and small left pleural effusions. No change in the dense bilateral infiltrates right greater than left. Heart size remains normal. IMPRESSION: No change from prior. Electronically signed by Jan Jesus 02/15/2019 10:52 AM
--- NOTE | 2019-02-15 14:43 | INFECTIOUS DISEASE PROGRESS NO ---
DATE: 02/15/2019 PRESENT ILLNESS: Mr. Cespedes is being treated for Klebsiella pneumonia. There was also oral candidiasis. MEDICATIONS: He is receiving Zyvox 600 mg by mouth every 12 hours and meropenem 1 g IV every 8 hours. He is also receiving nystatin swish and swallow. PHYSICAL EXAMINATION: Vital Signs: Temperature is 98 degrees, pulse rate 99. Respiratory rate 26, blood pressure 138/74, O2 saturation 97% on a 50% FiO2 on a Ventimask. General: This is a chronically ill-appearing middle-aged male who is sitting up in bed, currently in no acute distress. HEENT: Atraumatic, normocephalic. Oral mucous membranes are pink and moist with a mild white coating to his tongue conjunctiva are pale. Neck: Supple. Trachea is midline. Cardiovascular: Heart rate and rhythm are regular. Sinus rhythm, sinus tach on the monitor. Respiratory: Lung sounds have bilateral rhonchi throughout. Mild to moderate work of breathing with exertion. Abdomen: Soft, flat, and mildly tender to palpation. Bowel sounds are active. Integumentary: Skin is warm and dry with multiple tattoos. There is a right femoral triple-lumen catheter site without edema, erythema, or drainage. Neurologic: He is awake, alert, oriented, very hard of hearing. Able to move all extremities independently in the bed. LABORATORY AND X-RAY: Today his white count is 9.69, hemoglobin 9.8, platelet count 406,000, creatinine is 0.5, estimated GFR is greater than 60. No imaging reports today. However, x-ray has been ordered. He has not had it taken as of yet. ASSESSMENT AND PLAN: Mr. Cespedes is being treated for bilateral pneumonia and oral candidiasis. After reading Dr. Albrecht's note, we will discontinue the Zyvox and meropenem as ordered and give him oral Levaquin 500 mg by mouth daily. The possible side effects of Levaquin have been discussed with the patient, which include rash, diarrhea, seizures and tendon rupture. He agrees to proceed with the medication. These plans have been discussed with and recommended by Dr. Mota. COMORBIDITIES: For Mr. Cespedes include cigarette smoking, COPD, and protein calorie malnutrition. Dictated by VIRGEN Peterson for Alcides Mota MD cc: MD ISH Coleman
[2019-02-16] MEDS: XOPENEX NEB INH SCH ×6 (03:24→23:17)
[2019-02-16] MEDS: ATROVENT NEB INH SCH ×6 (03:24→23:17)
[2019-02-16] MEDS: SODIUM CHLORIDE 0.9% INJ SCH (06:48)
[2019-02-16] MEDS: PROTONIX IV SCH (06:48)
[2019-02-16] MEDS: LOVENOX SUBQ SCH (10:13)
[2019-02-16] MEDS: MYCOSTATIN SUSP PO SCH ×4 (10:13→21:00)
[2019-02-16] MEDS: LEVAQUIN PO SCH (10:13)
--- NOTE | 2019-02-16 14:01 | PROGRESS NOTE ---
DATE: 02/16/2019 SUBJECTIVE: This patient seems to be doing better. It looks like he is tolerating the nasal cannula. He is still weak. We will continue with same management. OBJECTIVE: Vital Signs: Temperature 97.8 degrees, pulse 109, respiratory rate 22, blood pressure 131/77, oxygen saturation 95% on 3.5 L of nasal cannula. HEENT: Head normocephalic, no trauma. PERRLA. Neck: Supple. No JVD. No masses. Central trachea. Chest: Decreased breath sounds mostly at the bases with some crepitus and coarse breath sounds mostly on the right side. Abdomen: Soft, nontender, nondistended. No hepatosplenomegaly. Extremities: No edema no clubbing no cyanosis. Decreased muscle mass. Neurological: The patient is awake. He is alert. He is following commands. He does have generalized weakness. LABORATORY DATA: ProBNP 624. ASSESSMENT AND PLAN: 1. Septic shock, resolved. 2. Extensive bilateral pneumonia due to Klebsiella. Continue with antibiotics. 3. Acute kidney injury, resolved. 4. Pulmonary edema, better. 5. Electrolyte imbalance, resolved. 6. Acute hypoxemic respiratory failure. This patient has been extubated a few days ago. We are using a Ventimask at this moment. We will continue to monitor. 7. Elevated liver function tests, likely a combination of shock liver and hepatitis C. 8. Hepatitis C. He will need to continue to monitor and treatment as an outpatient. 9. Metabolic acidosis, resolved. 10. Dehydration, resolved. 11. Diarrhea, resolved. 12. Deep vein thrombosis prophylaxis with Lovenox. 13. Nutritional status. This patient is tolerating p.o. 14. Acute respiratory distress syndrome, this is getting better. 15. Moderate protein calorie malnutrition. Continue with his diet and Ensure with meals. 16. History of tobacco use and abuse. This patient has been advised against tobacco use. I will continue with daily cessation education. 17. Generalized weakness and physical deconditioning. This is an issue for him right now. We will continue physical therapy. 18. Overall, this patient is getting better. I do believe he will need oxygen upon discharge. We will continue with same management for now. He seems to be stable. cc: Agapito Hunter MD
[2019-02-16] MEDS ORDERED: MIRALAX PO PRN (16:16)
[2019-02-16] MEDS: MIRALAX PO SCH (21:00)
[2019-02-17] MEDS: XOPENEX NEB INH SCH ×5 (03:07→19:51)
[2019-02-17] MEDS: ATROVENT NEB INH SCH ×5 (03:07→19:51)
[2019-02-17] MEDS: SODIUM CHLORIDE 0.9% INJ SCH (06:51)
[2019-02-17] MEDS: PROTONIX IV SCH (06:51)
[2019-02-17 07:48] LABS: BASO# 0.07 X1000 (0.0-0.2); BASO% 0.6 % (0.0-0.8); EOS# 0.17 X1000 (0.0-0.7); EOS% 1.4 % (0.0-10.0); HEMATOCRIT 36.1 % (42.0-52.0); HEMOGLOBIN 11.2 g/dL (14.0-18.0); IMM GRAN# 0.02 X1000 (0.0-0.04); IMM GRAN% 0.2 % (0.0-0.5); LYMPH# 1.85 X1000 (1.2-3.4); LYMPH% 15.7 % (20.5-51.1); MCH 30.6 PG (27-31); MCV 98.6 FL (81-99); MONO# 1.51 X1000 (0.11-0.59); MONO% 12.8 % (1.7-9.3); MPV 11.4 FL (7.4-10.4); NEUT# 8.17 X1000 (1.4-6.5); NEUT% 69.3 % (42.2-75.2); PLT 313 X1000 (130-400); RBC 3.66 XMIL (4.7-6.1); RDW 15.2 % (11.5-14.5); WBC 11.79 X1000 (4.8-10.8)
[2019-02-17 08:37] LABS: AGAP 12; BUN 9 mg/dL (8-22); CALCIUM 8.1 mg/dL (8.8-10.2); CHLORIDE 98 mmol/L (98-107); COSMO 264; CREATININE 0.5 mg/dL (0.7-1.2); ESTIMATED GFR > 60; GLUCOSE 114 mg/dL (70-104); POTASSIUM 4.6 mmol/L (3.5-5.1); SODIUM 132 mmol/L (136-145); TCO2 22 mmol/L (25-35)
[2019-02-17] MEDS: LEVAQUIN PO SCH (09:19)
[2019-02-17] MEDS: MYCOSTATIN SUSP PO SCH ×4 (09:19→20:04)
[2019-02-17] MEDS: MIRALAX PO SCH ×2 (09:19→20:03)
[2019-02-17] MEDS: LOVENOX SUBQ SCH ×2 (09:20→09:22)
--- NOTE | 2019-02-17 13:11 | PROGRESS NOTE ---
DATE: 02/17/2019 SUBJECTIVE: This patient is resting comfortably in bed. He just had a bowel movement. He is not complaining of chest pain. He is still on oxygen. WBC increased to 11.7. We will continue to monitor. Continue with aggressive physical therapy. OBJECTIVE: Vital Signs: Temperature 98.1 degrees, pulse 103, respiratory rate 22, blood pressure 128/75, oxygen saturation 96 on 3 L of nasal cannula. HEENT: Head normocephalic. No trauma. PERRLA. Neck: Supple. No JVD. No masses. Central trachea. Chest: Decreased breath sounds, mostly at the bases, with some crepitus and coarse breath sounds on the right side. Abdomen: Soft, nontender, nondistended. No hepatosplenomegaly. Extremities: No edema, no clubbing, no cyanosis. Decreased muscle mass. Neurological Examination: He is awake, alert, and oriented x3. No focal deficits but generalized weakness. Laboratory: WBC 11.7, hemoglobin 11.2, hematocrit 36.1, platelets 313,000. Sodium 132, potassium 4.6, chloride 98, bicarbonate 22, BUN 9, creatinine 0.5, glucose 114, calcium 8.1. ASSESSMENT AND PLAN: 1. Septic shock, resolved. 2. Extensive bilateral pneumonia due to Klebsiella. Continue with the same management. 3. Acute kidney injury, resolved. 4. Pulmonary edema, better. 5. Electrolyte imbalance, resolved. 6. Acute hypoxemic respiratory failure. Patient had been extubated a few days ago. We are still using oxygen through a nasal cannula. 7. Elevated liver function tests, likely a combination of shock liver and hepatitis C. This is better. 8. Hepatitis C. This patient will need to follow up with a job hand as an outpatient for treatment. 9. Metabolic acidosis, resolved. 10. Dehydration, resolved. 11. Diarrhea, stable. Now this patient has been constipated and he just had a bowel movement today. 12. Deep vein thrombosis prophylaxis with Lovenox. 13. Nutritional status. This patient is tolerating oral intake. 14. Acute respiratory distress syndrome, better. 15. Moderate protein calorie malnutrition. Continue with his diet and Ensure with meals. 16. History of tobacco use and abuse. This patient has been highly advised against tobacco use. I will continue with daily cessation education. 17. Generalized weakness and physical deconditioning. Continue physical therapy. 18. Disposition. Overall, this patient seems to be doing much better. He is still weak. We are still working with physical therapy. He is coming from nursing home. I am not sure if he can go to a rehab center. We will discuss the case with the supportive employment case manager and social worker delinquency prevention. He will probably need oxygen as an outpatient as well. I will wait for the final recommendations of the pulmonary department as well as infectious disease department to be able to discharge this patient but he is much better. cc: Agapito Hunter MD
[2019-02-18] MEDS: ATROVENT NEB INH SCH ×7 (00:08→23:03)
[2019-02-18] MEDS: XOPENEX NEB INH SCH ×7 (00:09→23:03)
[2019-02-18] MEDS: PROTONIX IV SCH (06:26)
[2019-02-18 07:51] LABS: BASO# 0.02 X1000 (0.0-0.2); BASO% 0.2 % (0.0-0.8); EOS# 0.22 X1000 (0.0-0.7); EOS% 1.9 % (0.0-10.0); HEMATOCRIT 33.4 % (42.0-52.0); HEMOGLOBIN 10.6 g/dL (14.0-18.0); IMM GRAN# 0.04 X1000 (0.0-0.04); IMM GRAN% 0.3 % (0.0-0.5); LYMPH# 1.59 X1000 (1.2-3.4); LYMPH% 13.6 % (20.5-51.1); MCH 30.5 PG (27-31); MCHC 31.7 g/dL (33-37); MONO# 1.87 X1000 (0.11-0.59); MPV 11.3 FL (7.4-10.4); NEUT# 7.94 X1000 (1.4-6.5); PLT 381 X1000 (130-400); RBC 3.48 XMIL (4.7-6.1); WBC 11.68 X1000 (4.8-10.8)
--- NOTE | 2019-02-18 07:55 | Diag Imaging Result Doc PS360 ---
CHEST-1 VIEW - 02/18/2019 INDICATION: SOB COMPARISON: 02/15/2019 FINDINGS: Stable advanced COPD. Stable heterogeneous alveolar infiltrates throughout the right lung. There is stable background interstitial pulmonary edema. Stable small to moderate right basilar pleural effusion. IMPRESSION: No change from prior. Electronically signed by Jan Jesus 02/18/2019 7:53 AM
[2019-02-18 08:11] LABS: AGAP 9; BUN 10 mg/dL (8-22); CALCIUM 8.3 mg/dL (8.8-10.2); CHLORIDE 97 mmol/L (98-107); COSMO 268; CREATININE 0.6 mg/dL (0.7-1.2); ESTIMATED GFR > 60; GLUCOSE 107 mg/dL (70-104); POTASSIUM 4.2 mmol/L (3.5-5.1); SODIUM 134 mmol/L (136-145); TCO2 28 mmol/L (25-35)
[2019-02-18] MEDS: MIRALAX PO SCH ×2 (10:28→21:08)
[2019-02-18] MEDS: LOVENOX SUBQ SCH (10:28)
[2019-02-18] MEDS: MYCOSTATIN SUSP PO SCH ×4 (10:28→21:08)
[2019-02-18] MEDS: LEVAQUIN PO SCH (10:28)
--- NOTE | 2019-02-18 18:16 | EKG Report ---
Test Performed on : 02/18/2019 5:48:43 PM Test Reason : Chest Pain Blood Pressure : / mmHG Vent. Rate : 117 BPM Atrial Rate : 117 BPM P-R Int : 118 ms QRS Dur : 076 ms QT Int : 314 ms P-R-T Axes : 080 077 074 degrees QTc Int : 438 ms Sinus tachycardia. Otherwise normal ECG When compared with ECG of 29-JAN-2019 15:43, (Unconfirmed) QRS axis shifted left Criteria for Septal infarct are no longer present Criteria for Lateral infarct are no longer present Criteria for Inferior infarct are no longer present T wave inversion no longer evident in Lateral leads Confirmed by Angela RODRIGUEZ, Jared Albarado ([id number]) on 02/19/2019 7:42:26 AM
[2019-02-18] MEDS: LASIX IV SCH (18:32)
--- NOTE | 2019-02-18 21:56 | PROGRESS NOTE ---
DATE: 02/18/2019 INTERVAL HISTORY: No acute events overnight. He was feeling short of breath and had some chest discomfort for which EKG was performed. EKG had detected sinus tachycardia. SUBJECTIVE: Patient is feeling fine. Denies any new complaints at the moment. He continues to have nonproductive cough. His chest pain is better at the time of my evaluation. Currently temperature 98.7 degrees, pulse 109, respiratory rate 14, blood pressure 115/62. He is saturating anywhere between 89 to 98 percent on 4 L nasal cannula. PHYSICAL EXAMINATION: General: Not in acute distress. HEENT: Oral cavity is moist. Chest: He has severe severely emphysematous chest with poor air entry bilaterally. There is some inspiratory crackles right hemithorax. No wheeze. Cardiovascular: S1, S2 normal. Tachycardic, regular. No murmur, rub, or gallop. Abdomen: Scaphoid. No hepatosplenomegaly. I could feel abdominal aortic pulsations. Active bowel sounds. Extremity: No lower extremity edema. He has a right-sided groin femoral central venous access. There is no pockets of pus I could appreciate. LABS: Suggestive of mild leukocytosis, normocytic anemia, normal platelet count. Essentially normal electrolytes with normal kidney function. IMAGING: Chest x-ray suggests right-sided lung infiltrate which is stable. There is also right- sided pleural effusion. ASSESSMENT AND PLAN: 1. Right hemithorax pneumonia with Klebsiella pneumoniae. Continue oral antibiotics levofloxacin as per Infectious Disease recommendations. 2. Acute hypoxic respiratory failure. I will give him additional doses of intravenous Lasix today and will follow up with his electrolytes tomorrow. I will also continue him on levalbuterol ipratropium nebulization. 3. Others. Continue enoxaparin for deep vein thrombosis prophylaxis. MiraLAX to avoid constipation and Nystatin for oral candidiasis. I will stop pantoprazole. 4. His septic shock, acute kidney injury, acute pulmonary edema, transaminitis due to shock liver and hepatitis C, metabolic acidosis, diarrhea, acute respiratory distress syndrome have been resolved. He also has history of tobacco abuse and protein-calorie malnutrition. I will continue physical therapy for his deconditioning. DISPOSITION: Continue to monitor patient inside the hospital. Foam Caster discussion about discharge disposition is pending. Plan of care discussed with the patient and his questions have been answered. cc: Jerome Bernabe MD
--- NOTE | 2019-02-18 23:03 | INFECTIOUS DISEASE PROGRESS NO ---
DATE: 02/18/2019 PRESENT ILLNESS: Mr. Cespedes is being treated for a Klebsiella pneumonia with ARDS. He also has an oral candidiasis. MEDICATIONS: He is receiving Levaquin 500 mg by mouth daily. PHYSICAL EXAM: Vital Signs: Temperature is 98.3 degrees, pulse rate 106, respiratory rate 14, blood pressure 118/57, O2 saturation is 98% on 3 L nasal cannula. General: This is a chronically ill-appearing middle-aged, cachectic appearing gentleman. He is lying in bed currently in no acute distress. HEENT: Atraumatic, normocephalic. Oral mucous membranes are pink and moist. Conjunctivae are pink. Neck: Supple. Trachea is midline. Cardiovascular: Heart rate and rhythm are regular and fast. Sinus tachycardia on the monitor. Abdomen: Soft, flat, and nontender. Bowel sounds are active. Neurologic: He is awake, alert, oriented and able to move around in the bed independently. LABORATORY AND X-RAY: Today his white count is 11.68, hemoglobin 10.6, platelet count 381,000, creatinine is 0.6, estimated GFR is greater than 60. He previously grew a Klebsiella pneumoniae in his sputum. Chest x-ray today shows no change in stable heterogenous alveolar infiltrates throughout the right lung. ASSESSMENT AND PLAN: Mr. Cespedes is being treated for pneumonia and oral candidiasis. Today is day 3 of treatment with Levaquin which we will continue at this time. There is a mild leukocytosis, which we will follow. CBC has been ordered for in the morning. The chest x-ray today is stable. At this point the plan is to send him back to [facility] once oxygen can be set up and everyone agrees with the plan to discharge. We have also ordered Ensure to be provided with meals due to patient's poor appetite. The oral candidiasis is improving. We will continue nystatin swish and swallow. These plans have been discussed with and recommended by Dr. Mota. COMORBIDITIES: Include cigarette smoking and COPD, protein calorie malnutrition and he is a [facility]. Dictated by VIRGEN Peterson for Alcides Mota MD cc: Alcides Mota MD [facility]
[2019-02-19] MEDS: ATROVENT NEB INH SCH ×6 (02:55→23:06)
[2019-02-19] MEDS: XOPENEX NEB INH SCH ×6 (02:56→23:06)
[2019-02-19] MEDS: LASIX IV SCH ×2 (03:09→09:16)
[2019-02-19 07:24] LABS: BASO# 0.04 X1000 (0.0-0.2); BASO% 0.3 % (0.0-0.8); EOS# 0.24 X1000 (0.0-0.7); EOS% 1.8 % (0.0-10.0); HEMATOCRIT 34.9 % (42.0-52.0); HEMOGLOBIN 10.9 g/dL (14.0-18.0); IMM GRAN# 0.05 X1000 (0.0-0.04); IMM GRAN% 0.4 % (0.0-0.5); LYMPH# 1.97 X1000 (1.2-3.4); LYMPH% 14.7 % (20.5-51.1); MCH 30.1 PG (27-31); MCHC 31.2 g/dL (33-37); MCV 96.4 FL (81-99); MONO# 2.21 X1000 (0.11-0.59); MONO% 16.4 % (1.7-9.3); MPV 11.2 FL (7.4-10.4); NEUT# 8.93 X1000 (1.4-6.5); NEUT% 66.4 % (42.2-75.2); PLT 411 X1000 (130-400); RBC 3.62 XMIL (4.7-6.1); WBC 13.44 X1000 (4.8-10.8)
[2019-02-19 07:42] LABS: AGAP 9; BUN 11 mg/dL (8-22); CALCIUM 8.8 mg/dL (8.8-10.2); CHLORIDE 93 mmol/L (98-107); COSMO 266; CREATININE 0.7 mg/dL (0.7-1.2); ESTIMATED GFR > 60; GLUCOSE 106 mg/dL (70-104); MAGNESIUM 1.8 mg/dL (1.5-2.7); POTASSIUM 4.6 mmol/L (3.5-5.1); SODIUM 133 mmol/L (136-145); TCO2 31 mmol/L (25-35)
[2019-02-19] MEDS: MIRALAX PO SCH ×2 (09:15→20:32)
[2019-02-19] MEDS: LEVAQUIN PO SCH (09:15)
[2019-02-19] MEDS: MYCOSTATIN SUSP PO SCH ×4 (09:15→20:32)
[2019-02-19] MEDS: LOVENOX SUBQ SCH (09:16)
--- NOTE | 2019-02-19 14:34 | PROGRESS NOTE ---
DATE: 02/19/2019 INTERVAL HISTORY: No acute events overnight. He is feeling better. He was able to walk with the help of physical therapy. However, he is very deconditioned and he needs a lot of breaks. SUBJECTIVE: He states his chest pain has eased up. His shortness of breath is better than it was 7 days ago. VITAL SIGNS: Temperature 98.7 degrees, pulse 108, respiratory rate 26, blood pressure 105/56. There was documentation of pulse of 130. Saturating 97% on 4 L nasal cannula. PHYSICAL EXAMINATION: General: Not in any acute distress. HEENT: Oral cavity is moist. Lungs: Air entry adequate on left hemithorax. Decreased air entry with inspiratory crackles right hemithorax. Cardiovascular: S1, S2 normal. Tachycardic. No murmur or gallop. Abdomen: Soft, nontender. Extremities: No lower extremity edema. LABS: Suggestive of leukocytosis, normocytic anemia, thrombocytosis, normal kidney function. MICROBIOLOGY: Blood culture no growth. IMAGING: No new imaging. ASSESSMENT AND PLAN: 1. Right hemithorax multifocal pneumonia with Klebsiella pneumoniae. Continue oral Levaquin as per ID's recommendations. 2. Acute hypoxic respiratory failure. Now stable on nasal cannula oxygen. Continue albuterol ipratropium nebulization. 3. Others. Continue enoxaparin for DVT prophylaxis, MiraLAX to avoid constipation, and statin for oral candidiasis. 4. His septic shock, acute kidney injury, acute pulmonary edema, transaminitis due to shock liver and chronic hepatitis C, metabolic acidosis, diarrhea, acute respiratory distress syndrome have resolved. He also has history of active tobacco abuse, protein calorie malnutrition, likely because of end-stage chronic obstructive pulmonary disease. Continue physical therapy for his deconditioning. 5. Disposition. If he continues to do well, my plan is to discharge him to his [facility] tomorrow. Plan of care discussed with him. His questions have been answered. cc: Jerome Bernabe MD
--- NOTE | 2019-02-19 22:05 | PULMONOLOGY PROGRESS NOTE ---
DATE: 02/19/2019 SUBJECTIVE: The patient is awake, alert and conversant. He reports he feels well. He is able to ambulate short distance with physical therapy. He is tolerating p.o. intake. OBJECTIVE: The patient has been afebrile for the last 24 hours. BP 107/64, heart rate 109, respiratory rate 18, oxygen saturation 98% on 4 L per nasal cannula. HEENT: Pupils are equal and reactive. Oropharynx appears clear. Neck is supple. Chest reveals occasional rhonchi bilaterally with crackles in both lung bases. Cardiac exam: S1, S2. Abdomen is soft. Extremities are without edema. LABORATORY DATA: White blood count 13,000, hemoglobin 10.9, platelet count 411,000. Sodium 133, potassium 4.6, chloride 93, bicarbonate 31, BUN 11, creatinine 0.7. There is no new microbiology data. IMPRESSION: A 63-year-old with: 1. Klebsiella pneumonia. 2. Acute respiratory distress syndrome with acute lung injury. 3. Acute hypoxemic respiratory failure. 4. Protein-calorie malnutrition. 5. Severe debilitation associated with critical illness. PLAN: 1. Agree with oral antibiotics as per Infectious Disease recommendations. 2. Wean oxygen as tolerated. 3. Follow up chest x-ray tomorrow. 4. Anticipate discharge home back to his facility soon. cc: Curtis Albrecht MD
[2019-02-20] MEDS: XOPENEX NEB INH SCH ×4 (03:37→16:02)
[2019-02-20] MEDS: ATROVENT NEB INH SCH ×4 (03:37→16:01)
--- NOTE | 2019-02-20 08:58 | Diag Imaging Result Doc PS360 ---
EXAM: CHEST-2 VIEWS INDICATION: pneumonia TECHNIQUE: 2 views COMPARISON: 02/18/2019 FINDINGS: Airspace consolidations throughout the right lung with a mid and lower lung zone predominance are approximately stable. There is a background of interstitial thickening that is grossly unchanged. The right basilar effusion is stable. No new consolidation is identified. Cardiac silhouette is stable. IMPRESSION: Essentially stable chest. Electronically signed by Felix Gentile 02/20/2019 8:55 AM
[2019-02-20] MEDS: LOVENOX SUBQ SCH ×2 (09:22→09:29)
[2019-02-20] MEDS: LEVAQUIN PO SCH (09:22)
[2019-02-20] MEDS: MYCOSTATIN SUSP PO SCH ×3 (09:22→16:28)
[2019-02-20] MEDS: MIRALAX PO SCH (09:23)
[2019-02-20 14:41] VITALS: BP 114/65
[2019-02-20] MEDS ORDERED: FLU VACCINE IM ONE (15:49)
--- NOTE | 2019-02-21 08:59 | DISCHARGE SUMMARY ---
ADMISSION DATE: 01/29/2019 DISCHARGE DATE: 02/20/2019 DISCHARGE DISPOSITION: He is being discharged to the [facility]. DISCHARGE CONDITION: Hemodynamically stable. He is breathing well on 3 L nasal cannula oxygen. He is able to ambulate with physical therapy. He should be on continuous oxygen 3 L/minute when he gets discharged, and he should continue physical therapy as tolerated. He should also complete the course of antibiotics and should get regular bronchodilator. DISCHARGE DIAGNOSES: 1. Septic shock. 2. Acute pulmonary edema. 3. Acute respiratory distress syndrome. 4. Acute hypoxic respiratory failure. 5. Acute chronic obstructive pulmonary disease exacerbation. 6. Acute tobacco abuse. 7. Right hemithorax, multifocal pneumonia due to Klebsiella pneumoniae. 8. Shock liver and transaminitis. 9. Chronic hepatitis C. 10. End-stage chronic obstructive pulmonary disease. DISCHARGE MEDICATIONS: 1. Albuterol nebulization 2.5 mg inhaled as needed for shortness of breath every 4 hours. 2. Fluticasone salmeterol 1 inhalation inhaled b.i.d. 3. Levofloxacin 500 mg daily, 10 tablets have been prescribed. 4. Acetaminophen 650 mg every 4 hours as needed for fever or pain, 15 tablets have been prescribed. It is okay to convert suppository to tablet form. VITALS: At the time of discharge, temperature 98.3 degrees, pulse 97, respiratory rate 14, blood pressure 114/75, saturating 99% on 3 L nasal cannula. PHYSICAL EXAMINATION: General: Not in acute distress. Oral cavity: Moist. Lungs: Adequate air entry and left hemithorax. Decreased air entry with inspiratory crackles on right hemithorax. No wheeze or rhonchi. Heart: S1, S2 normal. Regular. No murmur or gallop. Abdomen: Scaphoid, nontender. Extremities: No lower extremity edema. Neurologic: He is alert, oriented x3. He is cachectic. No pallor, cyanosis. He does have clubbing. No icterus. SIGNIFICANT LABS: During hospital admission and discharge, his WBC count is 13,00. His hemoglobin is 10.9, platelet is 411. BUN of 11, creatinine 0.7, potassium 4.6. Sodium 133, magnesium is 1.8. SIGNIFICANT MICROBIOLOGY: During hospital admission, blood culture on 4 different occasions were negative. Sputum culture was growing Klebsiella pneumoniae, which was sensitive to levofloxacin and Bactrim. SIGNIFICANT IMAGING: During hospital admission, he had a chest x-ray on January 29 that had right lower lobe pneumonia. Abdomen ultrasound on January 29 had mild fatty infiltration of liver, right pleural effusion. Chest x-ray on 02/20/2019 had essentially stable chest. They were as per consolidation throughout the right lung with mid and lower lung zone predominance, which were mostly stable. HOSPITAL COURSE SUMMARY: Mr. Cespedes is a 63-year-old man with past history of active tobacco abuse, who presented to the emergency room with chief complaints of cough, shortness of breath associated with fever and chills. He had been in longterm for 47 years. His symptoms basically started 2 days ago prior to presentation and were getting worse associated with that he also had fevers, chills, and dizziness. So he presented to the emergency room where he was found to be hypoxic, elevated transaminitis, as well as lactic acidosis. X-ray had suggested alveolar opacification of right lower lobe. He was also hypertensive. He was admitted to ICU for further management. He was treated for septic shock with Klebsiella pneumoniae causing pneumonia, and he required intravenous antibiotics, intravenous diuretics for pulmonary edema, oxygen support. He also was intubated and required ventilatory support. He has had a prolonged hospital course because of his worsening respiratory status. Eventually he was able to be extubated. Later on his antibiotics were changed to oral. At the time of this dictation, patient has been on oral antibiotics and his respiratory status has been stable. He is needing 3 to 4 L of oxygen. However, his symptoms are significantly better and his functional status has improved. It was decided to discharge him. He should complete the course of antibiotics and get a follow-up chest x-ray within 10 to 14 days. Plan of care were discussed with the patient. His questions were answered. TIME SPENT: More than 30 minutes spent discharging this patient. cc: Jerome Bernabe MD
== END 2019-02-20 19:28 | DRG 870 ==
LOC: SUPCPDRO → ED 15:05 → ICU 20:48 → SUATTDRO 20:48 → 2N 02-13 15:51 → 3N 02-15 16:16
PROVIDERS: ATTEND Internal Medicine